=== PATIENT | female | born 1940 | race Caucasian/White ===

== ENCOUNTER 2022-04-11 18:03 | Outpatient (CLI) | payer MEDICARE, BC, SELFPAY | END 2022-04-11 18:04 | disposition home or self-care (01) | LOC: AMB 04-30 15:38 | PROVIDERS: PCP Family Medicine; Visit Provider Emergency Medicine Emergency Medical Services | DX: S49.92XA Unspecified injury of left shoulder and upper arm, initial encounter (principal); W18.30XA Fall on same level, unspecified, initial encounter; Y92.000 Kitchen of unspecified non-institutional (private) residence as the place of occurrence of the external cause | CPT/HCPCS: A0425; A0427 ==

== ENCOUNTER 2022-04-11 18:46 | Emergency (ER) | payer MEDICARE, BC, SELFPAY ==
[2022-04-11] VITALS (29 sets, daily range): BP systolic 168–215; BP diastolic 78–126; PULSE 52–71; RESP 7–29; TEMP 35.9; O2SAT 90–100; BMI 31.5
--- NOTE | 2022-04-11 19:11 | CRLHL7_ITS ---
For Patients: As a result of the Century Cures Act, medical imaging exams and procedure reports are released immediately into your electronic medical record. You may view this report before your referring provider. If you have questions, please contact your health care provider. HISTORY: Fall. Pain. TECHNIQUE: Two views of the left shoulder. COMPARISON: No prior. FINDINGS: There is anterior dislocation of the left humeral head with respect to the glenoid. There is a Hill-Sachs fracture of the humeral head likely present. Mild left AC joint degenerative changes. Atelectasis versus fibrosis left lung base. IMPRESSION: 1. Left anterior shoulder dislocation. 2. Hill-Sachs fracture of the left humeral head. Dictated by Johann Moncada MD @ 04/11/2022 7:46:25 PM Dictated by: Johann Moncada MD @ 04/11/2022 19:46:27 (Electronically Signed)
[2022-04-11] MEDS: fentaNYL 100 MCG/2 ML inj 50 MCG IM (19:22)
[2022-04-11] MEDS: fentaNYL 100 MCG/2 ML inj 25 MCG IVP (19:55)
[2022-04-11] MEDS: BUPIVACAINE 0.25% 30 ML INJECTION (20:08)
[2022-04-11] MEDS: 0.9 % SODIUM CHLORIDE 1000 ml 1,000 ML IV (20:58)
--- NOTE | 2022-04-11 21:02 | CRLHL7_ITS ---
For Patients: As a result of the Century Cures Act, medical imaging exams and procedure reports are released immediately into your electronic medical record. You may view this report before your referring provider. If you have questions, please contact your health care provider. INDICATION: Postreduction. COMPARISON: April 11, 2022. TECHNIQUE: Two views of the left shoulder. FINDINGS: Anatomic alignment status post reduction. Re- demonstrated Hill-Sachs deformity of the humeral head. No definite glenoid deformity. Hemithorax unremarkable. IMPRESSION: Normal alignment status post reduction. Re- demonstration of a Hill-Sachs deformity. Dictated by Bruce Moseley MD @ 04/11/2022 9:38:19 PM (Electronically Signed)
--- NOTE | 2022-04-11 21:20 | W.ANESCHARGE ---
Anesthesia Charges Start Date/Time Anesthesia Start Date: 04/11/22 Anesthesia Start Time: 21:50 Stop Date/Time Anesthesia Stop Date: 04/11/22 Anesthesia Stop Time: 22:15 Summary Emergency: Yes Extremes of Age: Over 71-CPT [address]
--- NOTE | 2022-04-12 00:30 | ED_ITS ---
HPI - Fall General Chief Complaint: Fall/Minor Trauma Stated Complaint: Fall Time Seen by Provider: 04/11/22 19:00 History of Present Illness HPI Narrative: 81-year-old woman presenting to the emergency department assisted by EMS after a fall in kitchen while making dinner. She has had a couple glasses of wine, does not indicate a particularly large pour and this would not be atypical. She is having great deal pain in her left shoulder. She did not lose consciousness or hit her head. Sounds like more of a trip and fall event. She has no neck or back pain. Did receive morphine in the IV via EMS but this concern of infiltration. She is having a good deal of pain. Related Data Home Medications Medication Instructions Recorded Confirmed atorvastatin 20 mg tablet mg 04/11/22 citalopram 20 mg tablet mg 04/11/22 hydrochlorothiazide 25 mg tablet mg 04/11/22 latanoprost 0.005 % eye drops drp 04/11/22 levothyroxine 112 mcg tablet mcg 04/11/22 metoprolol tartrate 25 mg tablet mg 04/11/22 pramipexole 0.25 mg tablet mg 04/11/22 Allergies Allergy/AdvReac Type Severity Reaction Status Date / Time acetaminophen Allergy Mild Hives Verified 04/11/22 18:59 [From Panlor (hydrocodone-acetamin)] hydrocodone Allergy Mild Hives Verified 04/11/22 18:59 [From Panlor (hydrocodone-acetamin)] tramadol Allergy Mild Hives Verified 04/11/22 18:59 diltiazem [From Cardizem] AdvReac Mild Verified 04/11/22 18:59 lisinopril AdvReac Mild Cough Verified 04/11/22 18:59 Review of Systems Status of ROS: Reports: 6 or more systems reviewed and unremarkable except as noted in History and below PFSH PFS Social History Smoking Status: Unknown if ever smoked How often do you have a drink containing alcohol: 2-3 times a week AUDIT-C Alcohol total score: 3 Non-prescribed substance use: denies use Exam Narrative: Exam Narrative: Is very pleasant. Positive affect. Favoring her left arm holding it at her side with with her right arm/hand. Is breathing easily. Hunched forward a little bit in bed. Lungs are clear. Cardiovascular with regular rate and rhythm to little slow may be bradycardic. There is no pain to palpation clearly about the clavicles. Back is nontender no deformity appreciated. Neck is supple nontender. Head atraumatic. Cranial nerves 2-12 to be intact. Abdomen is soft nontender. Lower extremities. The without injury. Returning exam to the left shoulder an arm, there is remarkable tenderness and some swelling around upper humerus. More prominent what might be humeral head. Soft swelling. Does not appear to be an AC joint area injury. She is well-perfused peripherally with intact sensation. Oropharynx is unremarkable Const: Vital Signs, click to edit/add: Vital Signs - 24 hr 04/11/22 18:49 04/11/22 18:48 04/11/22 18:49 Temperature 96.7 F L Pulse Rate 58 L 56 L Pulse Rate [Right Pulse Oximeter] 62 Respiratory Rate 20 Blood Pressure 215/90 H Blood Pressure [Ri ght Upper Arm] 215/90 H Pulse Oximetry 99 99 99 Oxygen Delivery Me thod Room Air Oxygen Flow Rate 04/11/22 19:00 04/11/22 19:02 04/11/22 19:15 Temperature Pulse Rate 57 L 62 56 L Pulse Rate [Right Pulse Oximeter] Respiratory Rate Blood Pressure 180/126 H Blood Pressure [Ri ght Upper Arm] Pulse Oximetry 94 92 97 Oxygen Delivery Me thod Oxygen Flow Rate 04/11/22 19:30 04/11/22 19:35 04/11/22 19:59 Temperature Pulse Rate 52 L 53 L 59 L Pulse Rate [Right Pulse Oximeter] Respiratory Rate Blood Pressure 206/88 H Blood Pressure [Ri ght Upper Arm] Pulse Oximetry 97 98 95 Oxygen Delivery Me thod Oxygen Flow Rate 04/11/22 20:00 04/11/22 20:01 04/11/22 20:15 Temperature Pulse Rate 66 60 56 L Pulse Rate [Right Pulse Oximeter] Respiratory Rate Blood Pressure 197/87 H Blood Pressure [Ri ght Upper Arm] Pulse Oximetry 93 96 95 Oxygen Delivery Me thod Oxygen Flow Rate 04/11/22 20:30 04/11/22 20:32 04/11/22 20:45 Temperature Pulse Rate 60 60 59 L Pulse Rate [Right Pulse Oximeter] Respiratory Rate Blood Pressure 188/83 H Blood Pressure [Ri ght Upper Arm] Pulse Oximetry 96 97 96 Oxygen Delivery Me thod Oxygen Flow Rate 04/11/22 19:50 04/11/22 20:50 04/11/22 20:52 Temperature Pulse Rate 59 L 60 Pulse Rate [Right Pulse Oximeter] Respiratory Rate Blood Pressure 203/90 H 201/99 H Blood Pressure [Ri ght Upper Arm] Pulse Oximetry 92 94 97 Oxygen Delivery Me thod Oxygen Flow Rate 04/11/22 20:57 04/11/22 21:00 04/11/22 21:02 Temperature Pulse Rate 62 58 L 69 Pulse Rate [Right Pulse Oximeter] Respiratory Rate 29 H 8 L Blood Pressure 198/91 H 197/105 H Blood Pressure [Ri ght Upper Arm] Pulse Oximetry 100 92 90 Oxygen Delivery Me thod Oxygen Flow Rate 04/11/22 21:14 04/11/22 21:03 04/11/22 21:07 Temperature Pulse Rate 64 71 Pulse Rate [Right Pulse Oximeter] Respiratory Rate 7 L Blood Pressure 169/79 H Blood Pressure [Ri ght Upper Arm] Pulse Oximetry 95 92 96 Oxygen Delivery Me thod Nasal Cannula Oxygen Flow Rate 2 04/11/22 21:15 04/11/22 21:17 04/11/22 21:30 Temperature Pulse Rate 63 62 65 Pulse Rate [Right Pulse Oximeter] Respiratory Rate Blood Pressure 169/78 H Blood Pressure [Ri ght Upper Arm] Pulse Oximetry 99 99 94 Oxygen Delivery Me thod Oxygen Flow Rate 04/11/22 21:32 04/11/22 21:45 04/11/22 21:47 Temperature Pulse Rate 68 60 63 Pulse Rate [Right Pulse Oximeter] Respiratory Rate Blood Pressure 168/78 H 170/79 H Blood Pressure [Ri ght Upper Arm] Pulse Oximetry 96 96 100 Oxygen Delivery Me thod Oxygen Flow Rate Documenting provider has reviewed patient's vital signs: yes Course Vital Signs Vital signs: Initial Vital Signs Pulse Rate 58 L 04/11/22 18:48 Blood Pressure 215/90 H 04/11/22 18:48 Blood Pressure Mean 131 04/11/22 18:48 Pulse Oximetry 99 04/11/22 18:48 Vital Signs Pulse Rate 58 L 04/11/22 18:48 Blood Pressure 215/90 H 04/11/22 18:48 Pulse Oximetry 99 04/11/22 18:48 Temperature 96.7 F L 11/19/22 18:49 Pulse Rate 63 04/11/22 21:47 Respiratory Rate 7 L 04/11/22 21:03 Blood Pressure 170/79 H 04/11/22 21:47 Pulse Oximetry 100 04/11/22 21:47 Oxygen Delivery Method 04/11/22 21:14 Oxygen Flow Rate 2 04/11/22 21:14 MDM - Fall MDM Narrative Medical decision making narrative: With her degree of pain we do reassess IV. I have ordered for fentanyl. This did help somewhat. Going to imaging revealed an anterior dislocation of the left humeral head. I did review these images myself. Over-read by Radiology also suspected a Hill-Sachs lesion. After discussion of risks benefits and then swabbing with Betadine I injected shoulder with bupivacaine into joint space. This did allow some traction and mild attempt at reduction but still not able to relocate and was causing too much pain. Aborted this effort. Busy emergency department so requested anesthesia consult. Thankfully Talya is clear for timing of food and drink at this point to receive moderate sedation. Anesthesia arrives and we prepare for sedation assisted reduction See procedure record. Propofol use by Anesthesia. Traction/counter traction probably most effective in finally helping humeral head to settle. Sling placed. Confirming reduction in my review of post reduction films with no further fracture identified beyond the Hill-Sachs lesion, I can also confirm that Talya was markedly more comfortable and pleasantly chatty. Orthopedics was contacted for follow-up Medical Records Attestation: I reviewed the patient's medical records. Discharge Plan Discharge Clinical Impression: Anterior shoulder dislocation, Hill Sachs deformity, left Patient Disposition: Home w/ Parent or Adult Condition: Improved Additional Instructions: I would consider icing your shoulder yet tonight. Wear the arm sling over the next week. Anticipate a call from Orthopedics for follow-up. If you do not hear from them by noon on Wednesday, feel free to call [phone] to inquire. Can take ibuprofen or acetaminophen. Let me know if you need more for pain. Discuss on follow-up this concern of Hill-Sachs lesion of the humeral head. This is essentially a sort of fracture and can make you more prone to dislocating in the future or developing arthritis. See handout regarding dislocated shoulder. Prescriptions: No Action latanoprost 0.005 % drops Label Comments: PLACE 1 DROP INTO THE RIGHT EYE ONCE DAILY AT BEDTIME atorvastatin 20 mg tablet Label Comments: TAKE ONE TABLET BY MOUTH ONE TIME DAILY citalopram 20 mg tablet Label Comments: TAKE ONE TABLET BY MOUTH EVERY DAY IN THE MORNING. pramipexole 0.25 mg tablet Label Comments: TAKE 0.5 TABLETS BY MOUTH ONCE DAILY AT BEDTIME. hydrochlorothiazide 25 mg tablet Label Comments: TAKE ONE TABLET BY MOUTH ONE TIME DAILY levothyroxine 112 mcg tablet metoprolol tartrate 25 mg tablet Label Comments: TAKE 0.5 TABLETS BY MOUTH TWICE DAILY Follow Up/Referrals: Angel Luis Khan MD [Primary Care Provider] - Stand Alone Forms: [facility] Info Instructions Procedures Orthopedic Joint Reduction Joint #1: Written consent by: patient Time Out Performed: Yes Side: left Joint Reduction Location: shoulder Manipulation used?: Yes Analgesia: procedural sedation (Propofol) Local Anesthesia: bupivacaine 0.25% (Intra-articular ) Shoulder Technique Used (if applicable): traction/counter-traction (Ultimately this technique was probably most helpful. Attempted a couple of times nearly placed and then would dislocate. Finally convinced had settled in the joint.), scapula manipulation and other (Modified [place]) Post-reduction neuro vascular exam: intact Post Reduction X-Ray Results: reduced (I did review these images.) Splint Applied: No (Did place a sling.) Patient Tolerated Procedure: well and no complications Procedural Sedation Pre procedure diagnosis: Dislocated shoulder with a Hill-Sachs lesion Post procedure diagnosis: Same Written consent by: patient Verification/time out: correct patient and correct procedure Name of person perfmorming the procedure: Grey Pereira Sedation provider same as procedural provider: No Assistants, if any: Jean Marie in anesthesia Assistants, if any: Nurse Sona and danilo Renteria Indication: fracture/dislocation reduction (Anterior shoulder dislocation with Hill-Sachs lesion) ASA Class: I Mallampati classification: I. soft palate, fauces, uvula, pillars visible Preparation: manager monitoring applied, pulse oximeter, capnometry used, suction/airway equipment at bedside and IV secured Fentanyl: IV IV Propofol dose (mg): 0 (See anesthesia record) Patient Tolerated Procedure: well and no complications Interventions: airway repositioned
== END 2022-04-11 22:05 | disposition home or self-care (01) ==
PROVIDERS: Emergency Provider Family Medicine; PCP Family Medicine
DX: S43.005A Unspecified dislocation of left shoulder joint, initial encounter (principal); W19.XXXA Unspecified fall, initial encounter
CPT/HCPCS: 01620; 23655; 73030; 94761; 99100; 99140; 99284; J2704; J3010; J3490; J7030

== ENCOUNTER 2022-04-30 13:57 | Outpatient (CLI) | payer MEDICARE, BC, SELFPAY ==
--- NOTE | 2022-04-30 14:30 | MR_ITS ---
[address] [address] Phone:?[phone] Fax:?[phone] Referring Physician Information: Haim Thibodeaux [address] [facility] [address] Phone:?[phone] Fax:?[phone] Patient:?Talya Coon D.O.B:?1940 Sex:?Female Phone:?[phone] [facility] MRN:?[id number] Exam Date:?04/30/2022 ? EXAM: MRI of the LEFT SHOULDER, without contrast CLINICAL HISTORY: Left shoulder pain/injury. Bank[place] deformity. Hill-Sachs lesion. COMPARISONS: None available. TECHNICAL: MRI sequences of the left shoulder: Axials: PD, T2 Coronals: PD, STIR, T2 Sagittals: PD, T2 SEDATION: None CONTRAST: None FINDINGS: Bones: There is a 2.1 cm craniocaudad dimension by 1.7 cm in transverse dimension Hill- Sachs impaction deformity measuring 0.7 cm in depth. Coracoacromial arch: Acromion: No os acromiale. Type I-II acromion. Acromiohumeral space: The bony distance measures 5 mm. Coracohumeral space: The bony distance is unremarkable. Acromioclavicular joint: Mild degenerative changes. Coracoclavicular ligament: The coracoclavicular ligament is intact. Rotator cuff muscles/tendons: Supraspinatus: 1.7 cm in AP dimension high-grade partial-thickness articular sided tear of the supraspinatus tendon insertion with retraction of torn undersurface fibers to the level of the glenoid best seen on sagittal series 8 image 11 and coronal series 4 images 10 through 13. Mild atrophy of the supraspinatus muscle. Infraspinatus: 1.0 cm in AP dimension full-thickness tear of the infraspinatus tendon insertion with 1.8 cm of tendon retraction. Mild to moderate atrophy of the infraspinatus muscle. Teres minor: The teres minor tendon and muscle are intact. Subscapularis: The subscapularis tendon and muscle are intact. Labrum: There is fraying and tearing of the entire labrum including Bankart labral tear. Proximal biceps tendon, long head and short heads: There is biceps tenosynovitis. Attenuation of the proximal long head of the biceps tendon may reflect chronic attritional partial tearing. The short head is intact. Glenohumeral joint: Small glenohumeral joint effusion with substantial synovitis. No full-thickness chondral defect or subchondral bone marrow edema/cystic change is seen. There is extensive ill-defined partial tearing of the inferior glenohumeral ligament including the humeral attachment. Bursae: Subacromial/subdeltoid: The presence of fluid is not unexpected given full- thickness rotator cuff tendon tear. Subcoracoid: No convincing subcoracoid bursal thickening/bursitis. IMPRESSION: 1. 2.1 x 1.7 cm Hill-Sachs impaction deformity measuring 0.7 cm in depth. 2. Bankart labral tear in the setting of more diffuse fraying/degenerative tearing of the entire labrum. 3. 1.0 cm in AP dimension full-thickness tear of the infraspinatus tendon insertion with 1.8 cm of tendon retraction. Mild to moderate atrophy of the infraspinatus muscle. 4. 1.7 cm in AP dimension high-grade partial-thickness articular sided tear of the supraspinatus tendon insertion with retraction of torn undersurface tendon fibers to the level of the glenoid. Mild atrophy of the supraspinatus muscle. 5. Extensive ill-defined partial tearing of the inferior glenohumeral ligament including the humeral attachment. 6. Biceps tenosynovitis. Attenuation of the proximal long head of the biceps tendon may reflect chronic attritional partial tearing. 7. Small glenohumeral joint effusion with substantial synovitis. RCB Electronically signed on 05/01/2022 8:43:00 AM by Vahe Mandel M.D.
== END 2022-04-30 13:58 | disposition home or self-care (01) ==
LOC: MRI 13:58
PROVIDERS: PCP Family Medicine; Visit Provider Physician Assistant Surgical
DX: M25.512 Pain in left shoulder (principal); M21.822 Other specified acquired deformities of left upper arm; S43.402A Unspecified sprain of left shoulder joint, initial encounter; S46.812A Strain of other muscles, fascia and tendons at shoulder and upper arm level, left arm, initial encounter; S43.432A Superior glenoid labrum lesion of left shoulder, initial encounter; M25.412 Effusion, left shoulder
CPT/HCPCS: 73221

== ENCOUNTER 2023-03-26 17:54 | Outpatient (CLI) | payer MEDICARE, BC, SELFPAY | END 2023-03-26 17:55 | disposition home or self-care (01) | LOC: AMB 03-27 16:20 | PROVIDERS: PCP Family Medicine; Visit Provider Family Medicine | DX: S59.912A Unspecified injury of left forearm, initial encounter (principal); W18.30XA Fall on same level, unspecified, initial encounter; Y92.009 Unspecified place in unspecified non-institutional (private) residence as the place of occurrence of the external cause | CPT/HCPCS: A0425; A0427 ==

== ENCOUNTER 2023-03-26 18:22 | Emergency (ER) | payer MEDICARE, BC, SELFPAY ==
[2023-03-26] VITALS (13 sets, daily range): BP systolic 141–170; BP diastolic 72–83; PULSE 56–80; RESP 18; TEMP 36.2; O2SAT 95–100; BMI 29.8
--- NOTE | 2023-03-26 18:37 | CRLHL7_ITS ---
For Patients: As a result of the Century Cures Act, medical imaging exams and procedure reports are released immediately into your electronic medical record. You may view this report before your referring provider. If you have questions, please contact your health care provider. Indication: Trauma. Technique: Left wrist, 3 views. Comparison: None. Findings/impression: Bones: Diffuse demineralization of the visualized bones. Comminuted impacted fracture of the distal radius. Associated ulnar styloid process fracture is noted. There is dorsal dislocation of the distal fracture fragment.. Joint spaces: Moderate degenerative changes noted throughout the visualized joints.. Soft tissues: Soft tissue swelling surrounding the fracture sites.. Dictated by Tino Beckett MD @ 03/26/2023 7:50:05 PM (Electronically Signed)
--- NOTE | 2023-03-26 18:37 | CRLHL7_ITS ---
For Patients: As a result of the Century Cures Act, medical imaging exams and procedure reports are released immediately into your electronic medical record. You may view this report before your referring provider. If you have questions, please contact your health care provider. Indication: Trauma. Technique: Left elbow, 2 views. Comparison: None. Findings: True lateral is not included, mildly limiting evaluation. Bones: Alignment is normal. No fractures or bone lesions. Joint spaces: Moderate degenerative changes noted throughout the elbow.. Soft tissues: Soft tissue swelling surrounding the elbow.. Impression: No definite acute fractures or dislocations identified. Dictated by Tino Beckett MD @ 03/26/2023 7:48:18 PM (Electronically Signed)
--- NOTE | 2023-03-26 18:37 | CRLHL7_ITS ---
For Patients: As a result of the Cures Act, medical imaging exams and procedure reports are released immediately into your electronic medical record. You may view this report before your referring provider. If you have questions, please contact your health care provider. Indication: Trauma. Technique: Left shoulder, 3 views. Comparison: None. Findings/Impression: Bones/joint spaces: Superior elevation of the humerus in relation to the glenoid, possibly related to chronic rotator cuff insufficiency. Recommend correlation for acute subluxation. No displaced fractures or bone lesions. Mild acromioclavicular joint osteoarthritis. Soft tissues: Unremarkable. Dictated by Lewis Ramos MD @ 03/26/2023 7:32:33 PM (Electronically Signed)
[2023-03-26] MEDS: MORPHINE 4 MG/ML INJ IVP (18:53)
--- NOTE | 2023-03-26 20:15 | ED_ITS ---
HPI - Extremity Injury (Upper) General Date Seen: 03/26/23 Chief Complaint: Extremity Pain/Injury, Upper Stated Complaint: Fall Time Seen by Provider: 03/26/23 18:29 Source: patient Mode of arrival: EMS Limitations: no limitations History of Present Illness HPI narrative: Patient is an 82-year-old female presenting to the emergency department after a fall. She says she was in her hallway when she fell landing on her left arm. She states she did not hit her head she knows that for a fact. She denies any lightheadedness or dizziness before or after the fall. She is not sure exactly how she fell but she does think she tripped. She is having pain to her left elbow, shoulder, rest. Denies any other injuries. Is able to move her shoulder and elbow slightly but with pain. Limited range of motion at the wrist. Is able to move her fingers. Denies numbness Related Data Home Medications Medication Instructions Recorded Confirmed atorvastatin 20 mg tablet mg 04/11/22 06/23/22 citalopram 20 mg tablet mg 04/11/22 06/23/22 hydrochlorothiazide 25 mg tablet mg 04/11/22 06/23/22 latanoprost 0.005 % eye drops drp 04/11/22 06/23/22 levothyroxine 112 mcg tablet mcg 04/11/22 06/23/22 metoprolol tartrate 25 mg tablet mg 04/11/22 06/23/22 pramipexole 0.25 mg tablet mg 04/11/22 06/23/22 Allergies Allergy/AdvReac Type Severity Reaction Status Date / Time acetaminophen Allergy Mild Hives Verified 06/23/22 10:41 [From Panlor (hydrocodone-acetamin)] hydrocodone Allergy Mild Hives Verified 06/23/22 10:41 [From Panlor (hydrocodone-acetamin)] tramadol Allergy Mild Hives Verified 06/23/22 10:41 diltiazem [From Cardizem] AdvReac Mild Verified 06/23/22 10:41 lisinopril AdvReac Mild Cough Verified 06/23/22 10:41 Review of Systems Narrative: Negative unless stated in HPI PFSH PFSH Surgical History (Updated 05/08/22 @ 09:43 by Valery Dacosta) H/O repair of right rotator cuff (~2013) ?Z98.890 - Other specified postprocedural states (ICD-10) Status post total right knee replacement ?Z96.651 - Presence of right artificial knee joint (ICD-10) Social History (Reviewed 06/23/22 @ 10:42 by Joanna Kumar ~ [facility], 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) Smoking Status: Never smoker Do you use any of these nicotine containing products: None Second hand tobacco smoke exposure: No How often do you have a drink containing alcohol: 4 or more times a week How many standard drinks containing alcohol do you have on a typical day: 5 or 6 How often do you have six or more drinks on one occasion: Daily or almost daily AUDIT-C Alcohol total score: 10 Non-prescribed substance use: denies use Exam Narrative: Exam Narrative: Const: Well-nourished, Well-developed, in mild distress Eyes: PERRL, no conjunctival injection, and symmetrical lids HENT: Atraumatic external nose and ears. Moist mucous membranes. Neck: Symmetric, trachea midline, No thyromegaly. CVS: RRR, No murmurs or gallops. Peripheral pulses 2+ and equal in all extremities RESP: Unlabored respiratory effort. Clear to auscultation bilaterally. GI: Nontender/Nondistended, No rebound or guarding. MSK: Obvious deformity to left wrist. Limited range of motion to left shoulder and elbow secondary to pain. Unable to move left wrist. Has full range of motion of left hand Skin: Warm, Dry. No rashes or lesions. Neuro: Normal Muscle tone, No focal neurological deficits. Psych: Awake, Alert, & Oriented x3. Appropriate mood and affect. Const: Vital Signs, click to edit/add: Vital Signs - 24 hr 03/26/23 18:27 Temperature 97.2 F L Pulse Rate [Pulse Oximeter] 57 L Respiratory Rate 18 Blood Pressure [Ri ght Upper Arm] 170/72 H Pulse Oximetry 99 Oxygen Delivery Me thod Room Air Course Vital Signs Vital signs: Initial Vital Signs Temperature 97.2 F L 03/26/23 18:27 Temperature Source Temporal Artery Scan 03/26/23 18:27 Pulse Rate 57 L 03/26/23 18:27 Respiratory Rate 18 03/26/23 18:27 Blood Pressure 170/72 H 03/26/23 18:27 Blood Pressure Mean 104 03/26/23 18:27 Blood Pressure Position Supine 03/26/23 18:27 Pulse Oximetry 99 03/26/23 18:27 Oxygen Delivery Method Room Air 03/26/23 18:27 Vital Signs Temperature 97.2 F L 03/26/23 18:27 Pulse Rate 57 L 03/26/23 18:27 Respiratory Rate 18 03/26/23 18:27 Blood Pressure 170/72 H 03/26/23 18:27 Pulse Oximetry 99 03/26/23 18:27 Oxygen Delivery Method Room Air 03/26/23 18:27 Temperature 97.2 F L 03/26/23 18:27 Pulse Rate 57 L 03/26/23 18:27 Respiratory Rate 18 03/26/23 18:27 Blood Pressure 170/72 H 03/26/23 18:27 Pulse Oximetry 99 03/26/23 18:27 Oxygen Delivery Method Room Air 03/26/23 18:27 MDM - Extremity Injury (Upper) MDM Narrative Medical decision making narrative: Patient is an 82-year-old female who comes in after mechanical fall. No associated lightheadedness or dizziness. Did not hit her head. Is not on blood thinners. It is not necessary to do a head CT at this time. She is only complaining about pain to left arm. She was tender to the left shoulder elbow and wrist. X-rays were ordered. Morphine given for pain X-rays returned showing a fractured with compaction angulation of the left wrist. We will reduce this. I did a hematoma block and we will place in traction splint. Post reduction imaging was reviewed by myself and shows improved alignment. She was placed in a volar splint and was discharged home. Patient is agreeable to this plan appears to be discharged home with oxycodone sent [facility]. She is neurovascular intact post reduction Imaging Data X-ray left wrist: Radiologist's impression: Bones: Diffuse demineralization of the visualized bones. Comminuted impacted fracture of the distal radius. Associated ulnar styloid process fracture is noted. There is dorsal dislocation of the distal fracture fragment.. Joint spaces: Moderate degenerative changes noted throughout the visualized joints.. Soft tissues: Soft tissue swelling surrounding the fracture sites.. Dictated by Tino Beckett MD @ 03/26/2023 7:50:05 PM X-ray left elbow: Radiologist's impression: No definite acute fractures or dislocations identified. Dictated by Tino Beckett MD @ 03/26/2023 7:48:18 PM X-ray left shoulder: Radiologist's impression: Bones/joint spaces: Superior elevation of the humerus in relation to the glenoid, possibly related to chronic rotator cuff insufficiency. Recommend correlation for acute subluxation. No displaced fractures or bone lesions. Mild acromioclavicular joint osteoarthritis. Soft tissues: Unremarkable. Dictated by Lewis Ramos MD @ 03/26/2023 7:32:33 PM Discharge Plan Discharge Clinical Impression: Fracture of wrist Qualifiers: Encounter type: initial encounter Fracture type: closed Laterality: left Qualified Code(s): S62.102A - Fracture of unspecified carpal bone, left wrist, initial encounter for closed fracture Condition: Stable Instructions: Wrist Fracture in Adults (ED) Additional Instructions: Follow-up with orthopedics. Will help schedule an appointment. Take ibuprofen and Tylenol for pain. Side helping he can use oxycodone. Make sure that your careful any take the oxycodone as sick increased fall risk. If you lose feeling in the fingers or the become notably discolored return to emergency department for re-evaluation. Prescriptions: No Action latanoprost 0.005 % drops Patient Comments: PLACE 1 DROP INTO THE RIGHT EYE ONCE DAILY AT BEDTIME atorvastatin 20 mg tablet Patient Comments: TAKE ONE TABLET BY MOUTH ONE TIME DAILY citalopram 20 mg tablet Patient Comments: TAKE ONE TABLET BY MOUTH EVERY DAY IN THE MORNING. pramipexole 0.25 mg tablet Patient Comments: TAKE 0.5 TABLETS BY MOUTH ONCE DAILY AT BEDTIME. hydrochlorothiazide 25 mg tablet Patient Comments: TAKE ONE TABLET BY MOUTH ONE TIME DAILY levothyroxine 112 mcg tablet metoprolol tartrate 25 mg tablet Patient Comments: TAKE 0.5 TABLETS BY MOUTH TWICE DAILY Follow Up/Referrals: Angel Luis Khan MD [Primary Care Provider] -
--- NOTE | 2023-03-26 20:38 | CRLHL7_ITS ---
For Patients: As a result of the Century Cures Act, medical imaging exams and procedure reports are released immediately into your electronic medical record. You may view this report before your referring provider. If you have questions, please contact your health care provider. Indication: Reduction. Technique: Left wrist, 2 views. Comparison: None. Findings: Bones: Redemonstrated comminuted impacted fracture of the distal radius with better anatomic alignment.. Questionable fracture of the triquetrum. Redemonstrated associated ulnar styloid process fracture. Joint spaces: Moderate degenerative changes.. Soft tissues: Unremarkable. Impression: Better anatomic alignment of the distal radial fracture fragments. Stable appearance of the ulnar styloid process fracture. Questionable fracture of the triquetrum. Dictated by Tino Beckett MD @ 03/26/2023 8:55:10 PM (Electronically Signed)
--- NOTE | 2023-03-26 20:47 | ED.NURSE ---
Finger traps applied without improvement. Wrist manually reduced by MD and orthoglass placed.
== END 2023-03-26 21:22 | disposition home or self-care (01) ==
PROVIDERS: Emergency Provider Student in an Organized Health Care Education/Training Program; PCP Family Medicine
DX: S52.352A Displaced comminuted fracture of shaft of radius, left arm, initial encounter for closed fracture (principal); S52.615A Nondisplaced fracture of left ulna styloid process, initial encounter for closed fracture; W18.30XA Fall on same level, unspecified, initial encounter
CPT/HCPCS: 25605; 73030; 73070; 73110; 96374; 99283; 99284; J2270

== ENCOUNTER 2023-03-30 14:23 | Outpatient (CLI) | payer MEDICARE, BC, SELFPAY | END 2023-03-30 14:24 | disposition home or self-care (01) | LOC: NFLDREF 14:24 | PROVIDERS: PCP Family Medicine; Visit Provider Family Medicine | DX: Z01.818 Encounter for other preprocedural examination (principal); I10 Essential (primary) hypertension | CPT/HCPCS: 80048 ==

== ENCOUNTER 2023-03-31 11:30 | Day surgery (SDC) | payer MEDICARE, BC, SELFPAY ==
[2023-03-31] VITALS (11 sets, daily range): BP systolic 143–170; BP diastolic 67–85; PULSE 46–67; RESP 16; TEMP 36.1–36.6; O2SAT 94–100; BMI 31.1
[2023-03-31] MEDS: LACTATED RINGERS 1000 ML 1,000 ML 100 ML IV ×2 (12:30→13:55)
--- NOTE | 2023-03-31 12:52 | SUR.PREOP ---
TIME?OUT:?1238 PT/RN/MDA?VERIFICATION?OF?SURGICAL?SITE,?PROCEDURE,?AND?CONSENT OBTAINED?PRIOR?TO?INVASIVE?PROCEDURE.
--- NOTE | 2023-03-31 13:00 | CRLHL7_ITS ---
For Patients: As a result of the Cures Act, medical imaging exams and procedure reports are released immediately into your electronic medical record. You may view this report before your referring provider. If you have questions, please contact your health care provider. Indication: ORIF Left Distal Radius Technique: Two fluoroscopic images of the left wrist. Fluoroscopic time 16.0 seconds. IMPRESSION: Fluoroscopic guidance for open reduction internal fixation distal radial fracture. Dictated by Grey Sales MD @ 04/01/2023 5:44:33 AM (Electronically Signed)
--- NOTE | 2023-03-31 13:02 | W.ANESCHARGE ---
Anesthesia Charges Start Date/Time Anesthesia Start Date: 03/31/23 Anesthesia Start Time: 13:16 Stop Date/Time Anesthesia Stop Date: 03/31/23 Anesthesia Stop Time: 14:33 Summary Extremes of Age - Over 70 or under 1: MDA
--- NOTE | 2023-03-31 13:02 | W.PM.NB ---
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 Images saved: Yes Medications given in 5ml increments after negative aspiration: Ropivicaine %: 0.5 mL: 30 Needle gauge: 22 Patient tolerated procedure well: Yes Additional comments: Needle noted adjacent to nerve Block Charges Block Charge (with Pro Fee): Brachial Plexus Use of Ultrasound Machine for Block: Yes- US Guidance/pain block
--- NOTE | 2023-03-31 13:28 | W.PM.H&PU ---
History & Physical Update History & Physical Update H&P Reviewed and patient assessed: No changes noted
[2023-03-31] MEDS: CEFAZOLIN 1 GM inj IVP (13:30)
[2023-03-31] MEDS: LIDOCAINE 2%-EPI 1:200,000 20 ML TOPICAL (14:09)
[2023-03-31] MEDS: BUPIVACAINE 0.5% 30 ML INJECTION (14:09)
[2023-03-31] MEDS: NEOMYCIN/BACITRACIN/POLYMYXIN B 1 APPLIC TOPICAL (14:19)
--- NOTE | 2023-03-31 14:25 | PM.ORPRC ---
Procedure Note Date of procedure: 03/31/23 Procedure: PREOPERATIVE DIAGNOSES: 1. Left distal radius fracture extra-articular, metaphyseal, comminuted, radially/dorsally angulated and displaced - unstable 2. Right ring finger flexor tenosynovitis POSTOPERATIVE DIAGNOSES: 1. Left distal radius fracture extra-articular, metaphyseal, comminuted, radially/dorsally angulated and displaced - unstable 2. Right ring finger flexor tenosynovitis NAME OF OPERATION: 1. Left distal radius open reduction with internal fixation of extra-articular fracture (2 parts) 2. Right ring finger A1 bushra release/trigger finger release SURGEON: Elan Reaves MD [employer] ATTENDANT: Troy Ponce - Of note, an visitor services information assistant was critical for this case to aide in patient positioning, limb manipulation, tissue retraction, closure, and splinting. ANESTHESIA: Axillary block plus MAC EBL: 25 mL IMPLANTS: Synthes dual column volar locking plate for the left distal radius fracture fixation with 2.4 mm locking screws on the shaft and 1.8 mm locking pegs distally.. TOURNIQUET: 30 minutes at 250 torr. INDICATIONS: The patient is a pleasant, 82-year-old female who sustained a left wrist injury after a fall. They had difficulty with use of the extremity and deformity. Workup included xrays which revealed an unstable fracture. Given these findings, surgery was recommended to stablize the fracture. In addition, the contralateral right ring finger has been stuck in a flexed posture like a trigger finger for the last 2 weeks. Upon seeing her, I was unable to passively extend the digit. Given the length of time, this was an urgent trigger finger release as her IP joints are going to be contracted. FINDINGS: Closed, comminuted displaced left distal radius fracture, extra-articular metaphyseal location. Regarding the right hand, the ring finger indeed was stuck in a flexed posture. Even after lidocaine injection, we were unable to extend the digit. It was not until we released the A1 bushra that 1 could extend the MCP joint fully. In addition, the PIP joint showed a 45 degree flexion contracture as it has been stuck for 2+ weeks. PROCEDURE: Following a thorough discussion of risks, benefits, and alternatives, consent was obtained and the operative extremity was marked. The patient was brought to the operating room and placed supine on the operating table. Induction of anesthesia was achieved. Appropriate time out was performed identifying proper patient, site and procedure. 1 gram of iv Ancef was administered within 1 hour of incision preoperatively. The left upper extremity was prepped and draped in the appropriate sterile fashion using ChloraPrep prep. The limb was exsanguinated and the tourniquet inflated. A longitudinal incision was made overlying the FCR tendon. Sharp incision through skin and subcutaneous tissue allowed identification of the FCR tendon. The superficial sheath was sharply divided, the tendon retracted ulnarly, and the deep fascial sheath also released. The FPL was retracted ulnarly and the pronator quadratus was sharply released from the radial border of the radius and subperiosteally elevated. The fracture was encountered and cleared of interposed periosteum / fracture hematoma. A reduction was performed and the appropriate plate selected. Temporary stabilization allowed C-arm fluoroscopy to confirm proper fracture reduction and plate positioning. The oblong hole was filled with a nonlocking screw followed by multiple distal locking pegs being careful to keep these in subchondral bone and extraarticular. Finally, the remaining proximal shaft screws were drilled and placed. Fluoroscopic imaging confirmed the improved position and showed the fracture to be stable. At this stage, the wound was thoroughly irrigated with normal saline. Closure performed with 0 Vicryl for the pronator quadratus, followed by deflation of the tourniquet. All major bleeding points were cauterized. Closure was then completed with 3-0 Vicryl for the subcutaneous, and 4-0 statafix for subcuticular closure. After completion of left distal radius fracture, the right hand underwent a ring finger A1 bushra release. Sharp incision through skin after local anesthetic with 2% lidocaine with epinephrine and 0.5% Marcaine plain divided 50:50 (4 mL total). The subcutaneous tissue was bluntly divided with the tenotomy scissors. Retractors allowed us to identify the A1 bushra. We saw the tendon stuck in a flexed posture with significantly thickened portion just proximal to the A1 bushra. The A1 bushra was released completely and tendon was not able to be properly mobilized. Manipulation of the ring finger PIP joint showed that it remained at a 45 degree flexion contracture (although was stuck at 90? prior to the A1 bushra release). Again thorough irrigation normal saline was performed. Closure performed with 4-0 nylon for this finger. Both upper extremities underwent a proper dressing and the left wrist also had a short-arm volar splint applied. The patient was awoken from anesthesia and transferred to PACU in stable condition. PLAN: 1. Elevate operative extremity. 2. Ice, acetominphen or ibuprofen PRN. 3. Oxycodone for pain as needed. 4. Follow up with PA visit in 10-16 days for wound check, suture removal, and splint removal and transition to short-arm cast. Total immobilization time between splint and cast should equal 4 weeks. She can return at the 4 week smooth for cast removal and brace application.
--- NOTE | 2023-03-31 14:50 | SUR.OPER ---
PATIENT QUESTIONS ANSWERED SATISFACTORILY PREOPERATIVELY. PATIENT BROUGHT TO OR #2 PER CART FOLLOWING THE BLOCK. Patient positioned supine on OR 23 bed. Final approval of positioning by surgeon.
--- NOTE | 2023-03-31 14:52 | P.ANES_ITS ---
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
--- NOTE | 2023-03-31 14:56 | SUR.PHASEII ---
Upon arrival from OR, right hand all fingers dusky and blue in color. Pulse oximeter applied to fingers with oxygen sats 95-96% on RA. Dr. Vanessa updated on pt's condition, he is aware and will recheck.
--- NOTE | 2023-03-31 15:34 | SUR.PHASEII ---
1520 Dr Vanessa in room to check pt's right hand. Released the dressing, pink color returned to fingers. pt has feeling on right pointer, middle, thumb finger. numbness on ring finger and little finger. Good cap refill on all fingers. Pulse oximetry reading on all fingers with good capture and 95% oxygen reading.
--- NOTE | 2023-03-31 16:04 | SUR.PHASEII ---
ambulated to BR with SBA tolerated activity without difficulty. WHeelchair ride to car
== END 2023-03-31 16:04 | disposition home or self-care (01) ==
PROVIDERS: PCP Family Medicine; Visit Provider Orthopaedic Surgery Sports Medicine
PROC: (CPT 25575; principal; 2023-03-31 13:00)
PROC: (CPT 26055; 2023-03-31 13:00)
DX: S52.552A Other extraarticular fracture of lower end of left radius, initial encounter for closed fracture (principal); M65.841 Other synovitis and tenosynovitis, right hand; M65.341 Trigger finger, right ring finger
CPT/HCPCS: 25607; 26055; 01830; 64415; 73100; 76000; 76942; 99100; A4580; C1713; J0665; J0690; J1100; J2405; J2704; J2795; J3490; J7120

== ENCOUNTER 2023-07-01 13:30 | Outpatient (RCR) | payer MEDICARE, BC, SELFPAY ==
--- NOTE | 2023-04-30 12:12 | OT.OPOE ---
OT Outpatient Ortho Eval OT Outpatient Ortho Eval* Start: 04/29/23 17:32 Freq: Status: Active Protocol: Document 04/30/23 07:31 AMB (Rec: 04/30/23 12:09 AMB [id number]) E-signed By Sarah Cardenas, OTR/L, CLT, [employer] TECHNICIAN OT OP Ortho Eval Details Complexity Complexity Medium Insurance Information Insurance Information Medicare B Outpatient History/Precautions Current Condition/Medical Diagnosis Referring Provider Fam Ghosh-Rustam Treatment Diagnosis Stiffness/weakness RUE RF and LUE wrist/hand Date of Onset DOI:03/26/23, DOS: 03/31/23 Medical Conditions Depression,HTN,Metal Implants Other Conditions PMH (copied from ortho chart): PFSH Active Problems (Updated 04/10 @ 00:01 by Background Asher) History of open reduction and internal fixation (ORIF) procedure (Acute 03/31/23) 1 month postop left distal radius open reduction with internal fixation of extra- articular fracture (2 parts) - 03/31/2023 Dr. Reaves Z98.890 - Other specified postprocedural states (ICD-10) Status post trigger finger release (Acute 03/31/23) 1 month postop right ring finger A1 bushra release/ trigger finger release (2022 Dr. Reaves) Z98.890 - Other specified postprocedural states (ICD-10) Bowel obstruction (Acute) K56.609 - Unspecified intestinal obstruction, unspecified as to partial versus complete obstruction ( ICD-10) Hypothyroidism (Acute) E03.9 - Hypothyroidism, unspecified (ICD-10) Depression (Acute) F32.A - Depression, unspecified (ICD-10) Hyperlipidemia (Acute) E78.5 - Hyperlipidemia, unspecified (ICD-10) HTN (hypertension) (Acute) I10 - Essential (primary) hypertension (ICD-10) Trigger finger, right ring finger (Acute) M65.341 - Trigger finger, right ring finger (ICD-10) Left wrist fracture (Acute) Comminuted impacted fracture of the distal radius. Associated ulnar styloid process fracture. Questionable fracture of the triquetrum. S62.102A - Fracture of unspecified carpal bone, left wrist, initial encounter for closed fracture (ICD-10) Tendinopathy of left biceps ( Acute) Biceps tenosynovitis M67.922 - Unspecified disorder of synovium and tendon, left upper arm (ICD-10) Rotator cuff tear, left ( Chronic) full-thickness tear of the infraspinatus with mild- moderate atrophy high-grade partial-thickness supraspinatus tear with mild atrophy M75.102 - Unspecified rotator cuff tear or rupture of left shoulder, not specified as traumatic (ICD-10) Bankart lesion of left shoulder (Acute) Bankart labral tear S43.492A - Other sprain of left shoulder joint, initial encounter (ICD-10) Anterior shoulder dislocation (Acute 04/11/22) left shoulder dislocation/ reduction. 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 - Other specified acquired deformities of left upper arm (ICD-10) Surgical History (Updated 12/13 @ 09:50 by Ruperto Hanson PA-C) Status post trigger finger release (03/31/23) Z98.890 - Other specified postprocedural states (ICD-10) History of open reduction and internal fixation (ORIF) procedure (03/31/23) Z98.890 - Other specified postprocedural states (ICD-10) History of phacoemulsification of cataract of left eye with intraocular lens implantation (10/10/08) Z98.42 - Cataract extraction status, left eye (ICD-10) Z96.1 - Presence of intraocular lens (ICD-10) History of YAG laser capsulotomy of lens of right eye (11/21/08) Z98.41 - Cataract extraction status, right eye (ICD-10) History of bladder surgery Z98.890 - Other specified postprocedural states (ICD-10) History of bunionectomy of both great toes Z98.890 - Other specified postprocedural states (ICD-10) History of hysterectomy (1992) Z90.710 - Acquired absence of both cervix and uterus (ICD-10 ) History of colectomy (~2007) Z90.49 - Acquired absence of other specified parts of digestive tract (ICD-10) H/O repair of right rotator cuff (~2013) Z98.890 - Other specified postprocedural states (ICD-10) 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 Social History Employment Status Retired Hobbies Enjoys time with her grandchildren Fitness Stays active taking care of her home Ortho Subjective Subjective Subjective Pt states that on 03/26/23, she was walking [place] the [place] her [place] when she slipped on the tile and fell on her left hand breaking her wrist. Pt state she's had a trigger finger in her right hand for a very long time, states the doctor asked her if she wanted that fixed while he was repairing her wrist, she decided that would be a good idea as she states she really could not straighten that finger and hadn't been able to for a long time. Pt states she is feeling pretty good using Tylenol occasionally for pain. Pt states her pain is about a 3/10 in her wrist, less in her right hand. Pt states her wrist aches, finger is just sore, painful if she pushes it straight. Pt states she is really not able to do any cooking or cleaning, also needs occasional help getting dressed, especially with buttons, zippers, ties. Pt states her is very helpful and assists with whatever she needs help with. Goniometric Comments Goniometric Comments Goniometric Comments 04/30/23 AROM of the LUE wrist flexion is 45, ext is 10, UD is 15, RD is 15, composite fist is -1.5cm from tip of MF to DPC, opposition is to tip of 5th digit, pronation is 65, supination is 40. AROM of the RUE RF MP is 0-80, PIP is -25-95, DIP is 0-20. Too early for strength testing. OT Problems Problems Problems Decreased Strength,Decreased Range of Motion,Decreased Dexterity,Pain,Decreased Coordination,Lifting,Gripping, Pinching Other Problems Writing,Opening Containers Assessment Assessment Assessment Pt is a very pleasant 82yo female reporting to OT with pain, weakness and limited AROM in the RUE hand and the LUE hand, wrist and forearm following RUE RF TF release and LUE DR fx with ORIF. Pt is having difficulty with all ADLs and IADLs due to stated impairments. Pt will benefit from skilled OT intervention to address BUE AROM, strength, and pain in order to restore full, pain-free use of BUE and independence with all ADLs and IADLs. Occupational Therapy Treatment Plan - OP Potential Rehabilitation Potential Good Set Goals Goals Set with Patient Yes Goals Goals 1. Pt will be independent and compliant with HEP in order to resume full, pain-free use of BUE. 3 weeks 2. Pt will demonstrate full, pain-free AROM of the BUE in order to improve ability to grasp and hold. 6 weeks 3. Pt will demonstrate pain- free cleaner furniture and pinch strength comparable to age and gender in BUE in order to improve functional grasp, hold, reach, and lifting ability needed to complete self-care, leisure tasks, and work activities. 8 weeks. Treatment Plan Treatment Plan Evaluation,Edema Control,Joint Mobilization,Manual Therapy, Splinting,Ultrasound,Wound Care/Scar Management, Therapeutic Exercise, Therapeutic Activities,Self Care/Home Management,Education Expected Frequency 1-2x Week Expected Duration 8-10 Weeks Home Program Home Program Home Program Initiated Home Program Specifics 04/30/23 Provided training and practice in HEP for AROM of the LUE hand, wrist, and forearm and AROM, gentle AAROM of the RUE RF. Following demo, pt is able to complete exs with minimal cues. She was provided written instructions for use at home as well. She was also given a Oval 8 splint for static PIP extension of the RUE RF PIP, to be worn at night. Certification Certification I Certify That: Therapy Services Provided, Therapy Plan Established, Therapy Plan Reviewed Recertification Information Recertification Information Initial Certification Date 04/30/23 Recertification Due Date 07/29/23 Reasons to Continue Skilled Therapy Initiated OT today to address limited ROM and weakness in BUE secondary to RUE TF release of the RF and LUE ORIF secondary to DR calvert. Rehabilitation Potential Good Continued Plan of Care and Interventions Please see above POC Provider Signature Shows Agreement With POC & Medical Necessity Physician Comment/Change Comment or Changes Physician NPI Number #
== END 2023-07-01 15:21 | disposition home or self-care (01) ==
PROVIDERS: PCP Family Medicine; Visit Provider Physician Assistant Surgical
DX: Z98.890 Other specified postprocedural states (principal); Z51.89 Encounter for other specified aftercare
CPT/HCPCS: 97035; 97110; 97140; 97166; 97530; X5282

== ENCOUNTER 2023-07-22 09:15 | Outpatient (RCR) | payer MEDICARE, BC, SELFPAY | END 2023-11-19 23:59 | disposition home or self-care (01) | PROVIDERS: PCP Family Medicine; Visit Provider Family Medicine | DX: R26.81 Unsteadiness on feet (principal); Z51.89 Encounter for other specified aftercare | CPT/HCPCS: 97035; 97110; 97116; 97140; 97162; X5282 ==

== ENCOUNTER 2023-12-08 22:11 | Inpatient (IN) | payer MEDICARE, BC, SELFPAY ==
[2023-12-08 22:15] VITALS: BP 201/83; PULSE 62; RESP 20; TEMP 36.6; O2SAT 95; BMI 32.1
--- NOTE | 2023-12-08 22:24 | ED.GENADULT ---
HPI - General Adult General Chief complaint: Abdominal Pain Stated complaint: abdominal pain Time Seen by Provider: 12/08/23 22:24 History of Present Illness HPI narrative: Pain over the umbilicus starting a couple hours ago. Also very nauseated. She hasn't felt good today. History of hernia of stomach requiring surgery as well as a bowel obstruction 10 years ago treated medically, bladder mesh, and hysterectomy. 83-year-old woman presenting to the emergency department with cramping periumbilical pain beginning a few hours prior to presentation. Cramping. No diarrhea. Has passed some gas. Did have a bowel movement earlier today but had not yet had such discomfort at that point. Has been urping or dry heaving but not actually vomiting - sounds like does not vomit though since Sherrill. Just has not felt good today she says and then it escalated as noted above. Does have a history of number of abdominal surgeries and sounds like subsequent bowel obstruction treated medically. Has not had any fever. Not having any chest pain. Not noting shortness of breath. Hurts more to sit. Related Data Home Medications ?Medication ?Instructions ?Recorded ?Confirmed atorvastatin 20 mg tablet 20 mg PO QDAY 03/30/23 12/03/23 citalopram 20 mg tablet 20 mg PO QDAY 03/30/23 12/03/23 hydrochlorothiazide 25 mg tablet 25 mg PO QDAY 03/30/23 12/03/23 latanoprost 0.005 % eye drops 1 drp ophthalmic (eye) QDAY 03/30/23 12/03/23 levothyroxine 112 mcg tablet 112 mcg PO QDAY 03/30/23 12/03/23 metoprolol tartrate 25 mg tablet 12.5 mg PO BID 03/30/23 12/03/23 multivitamin (Multiple Vitamins 1 tab PO QDAY 03/30/23 12/03/23 tablet) pramipexole 0.25 mg tablet 0.125 mg PO QHS 03/30/23 12/03/23 Allergies Allergy/AdvReac Type Severity Reaction Status Date / Time acetaminophen Allergy Mild Hives Verified 12/03/23 09:50 [From Panlor (hydrocodone-acetamin)] hydrocodone Allergy Mild Hives Verified 12/03/23 09:50 [From Panlor (hydrocodone-acetamin)] tramadol Allergy Mild Hives Verified 12/03/23 08:40 diltiazem [From Cardizem] AdvReac Mild Verified 12/03/23 08:40 lisinopril AdvReac Mild Cough Verified 12/03/23 08:40 Review of Systems Status of ROS: Reports: 6 or more systems reviewed and unremarkable except as noted in History and below [facility] Medical History Irregular heart rhythm ?I49.9 - Cardiac arrhythmia, unspecified (ICD-10) Restless legs ?G25.81 - Restless legs syndrome (ICD-10) Urinary incontinence ?R32 - Unspecified urinary incontinence (ICD-10) Adjustment disorder with depressed mood ?F43.21 - Adjustment disorder with depressed mood (ICD-10) Acquired hypothyroidism ?E03.9 - Hypothyroidism, unspecified (ICD-10) Impaired fasting glucose ?R73.01 - Impaired fasting glucose (ICD-10) Mixed hyperlipidemia ?E78.2 - Mixed hyperlipidemia (ICD-10) Essential hypertension ?I10 - Essential (primary) hypertension (ICD-10) Coronary artery disease ?I25.10 - Atherosclerotic heart disease of [place] coronary artery without angina pectoris (ICD-10) Surgical History Status post Sherrill fundoplication (without gastrostomy tube) procedure ?Z98.890 - Other specified postprocedural states (ICD-10) Status post trigger finger release (03/31/23) ?Z98.890 - Other specified postprocedural states (ICD-10) History of open reduction and internal fixation (ORIF) procedure (03/31/23) ?Z98.890 - Other specified postprocedural states (ICD-10) History of phacoemulsification of cataract of left eye with intraocular lens implantation (10/10/08) ?Z98.42 - Cataract extraction status, left eye (ICD-10) ?Z96.1 - Presence of intraocular lens (ICD-10) History of YAG laser capsulotomy of lens of right eye (11/21/08) ?Z98.41 - Cataract extraction status, right eye (ICD-10) History of bladder surgery ?Z98.890 - Other specified postprocedural states (ICD-10) History of bunionectomy of both great toes ?Z98.890 - Other specified postprocedural states (ICD-10) History of hysterectomy (1993) ?Z90.710 - Acquired absence of both cervix and uterus (ICD-10) History of colectomy (~2007) ?Z90.49 - Acquired absence of other specified parts of digestive tract (ICD-10) H/O repair of right rotator cuff (~2013) ?Z98.890 - Other specified postprocedural states (ICD-10) 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 Calm but clearly uncomfortable. Speaks fluidly. She is standing at the side of the bed - as noted more uncomfortable to sit down. Breathing easily. Lungs appear to be clear. Heart is slower regular rate. Distant. No murmur rub or gallop though identified. Abdomen with present bowel sounds. Diffusely mildly tense and tender but she is not exactly guarding. Large well-healed midline abdominal scars. No peritoneal signs. Extremities are well perfused with moderate dependent. Const: Vital Signs, click to edit/add: Vital Signs - 24 hr 12/08/23 22:15 12/08/23 23:32 Temperature 97.9 F Pulse Rate [Pulse Oximeter] 62 58 L Respiratory Rate 20 18 Blood Pressure [Le ft Forearm] 201/83 H 174/70 H Pulse Oximetry 95 90 Oxygen Delivery Me thod Room Air Room Air Documenting provider has reviewed patient's vital signs: yes Course Vital Signs Vital signs: Initial Vital Signs Temperature 97.9 F 12/08/23 22:15 Temperature Source Temporal Artery Scan 12/08/23 22:15 Pulse Rate 62 12/08/23 22:15 Respiratory Rate 20 12/08/23 22:15 Blood Pressure 201/83 H 12/08/23 22:15 Blood Pressure Mean 122 H 12/08/23 22:15 Blood Pressure Position Sitting 12/08/23 22:15 Pulse Oximetry 95 12/08/23 22:15 Oxygen Delivery Method Room Air 12/08/23 22:15 Vital Signs Temperature 97.9 F 12/08/23 22:15 Pulse Rate 62 12/08/23 22:15 Respiratory Rate 20 12/08/23 22:15 Blood Pressure 201/83 H 12/08/23 22:15 Pulse Oximetry 95 12/08/23 22:15 Oxygen Delivery Method Room Air 12/08/23 22:15 Temperature 97.9 F 12/08/23 22:15 Pulse Rate 58 L 12/08/23 23:32 Respiratory Rate 18 12/08/23 23:32 Blood Pressure 174/70 H 12/08/23 23:32 Pulse Oximetry 90 12/08/23 23:32 Oxygen Delivery Method Room Air 12/08/23 23:32 Medications Administered Medications: Discontinued Medications Generic Name Dose Route Start Last Admin Trade Name Freq PRN Reason Stop Dose Admin Sodium Chloride 1,000 mls @ 1,000 mls/hr 12/08/23 22:28 12/08/23 23:45 0.9 % Sodium Chloride 1000 Ml IV 12/08/23 23:27 Infused .Q1H ONE Infusion Morphine Sulfate 4 mg 12/08/23 22:28 12/08/23 22:52 Morphine 4 Mg/Ml Inj IVP 12/08/23 22:29 4 mg ONCE ONE Administration Ondansetron HCl 4 mg 12/08/23 22:28 12/08/23 22:52 Ondansetron 2 Mg/Ml Inj IVP 12/08/23 22:29 4 mg ONCE ONE Administration Medical Decision Making MDM Narrative Medical decision making narrative: Given recurrent surgeries and history of bowel obstruction I would have concern of the same. She may have a volvulus. Does not sound to be constipated otherwise. No symptoms of colitis at this time. Will evaluate for concurrent urinary tract infection as well. Symptoms inconsistent I think with pancreatitis or cholecystitis or appendicitis or mesenteric adenitis. Given degree of discomfort, history, age, will need CT imaging. She would appreciate something for pain. Will place IV. Normal saline. Zofran. 4 mg of morphine initially. Initial systolic of 201 I would suspect is related to pain. Labs are overall reassuring. I have reviewed IV contrasted CT of abdomen pelvis and can appreciate some dilated fluid-filled loops of small bowel. Would have concern of obstruction however there does appear to be some gas in the lower pelvis. Pending Radiology over-read. Pain is returning. Ordered for another 2 mg of morphine. Continues to dry heave. Has also visited the bathroom. She denies passing any flatus at this point ?I think I have been turned off? Will be given promethazine and with escalation in pain, Dilaudid. Will need to be handed off at change of shift Medical Records Medical records reviewed: Yes I reviewed the patient's medical records Lab Data Lab results reviewed: Yes I reviewed the patient's lab results Labs: Lab Results 12/08/23 12/08/23 Range/Units 22:29 22:36 WBC 8.20 (4.50-11.00) K/uL RBC 4.77 (4.00-5.20) m/uL Hgb 14.9 (12.0-16.0) gm/dL Hct 44.9 (33.0-51.0) % MCV 94 (80-100) fL MCH 31 (26-34) pg MCHC 33 (32-36) gm/dL RDW Coeff of Justin 12.9 (11.5-15.5) % Plt Count 203 (140-440) K/uL Neut % (Auto) 64.4 (42.0-72.0) % Lymph % (Auto) 25.6 (20-44) % [place] % (Auto) 8.4 (0.0-11.0) % Eos % (Auto) 1.2 (0.0-7.0) % Baso % (Auto) 0.2 (0.0-3.0) % Neut # (Auto) 5.27 (1.7-7.0) K/uL Lymph # (Auto) 2.10 (0.90-2.90) K/uL [place] # (Auto) 0.70 (0.00-0.90) K/UL Eos # (Auto) 0.10 (0.00-0.50) K/uL Baso # (Auto) 0.02 (0.00-0.30) K/uL Abs Immat Gran (auto) 0.02 (0.00-0.30) K/uL Imm/Tot Granulo (auto) 0.2 % Sodium 136 (135-149) mmol/L Potassium 4.0 (3.6-5.1) mmol/L Chloride 102 (96-114) mmol/L Carbon Dioxide 26 (20-32) mmol/L Anion Gap 8 (7-15) mEq/L BUN 24 (7-30) mg/dL Creatinine 1.0 (0.5-1.5) mg/dL Estimated Creat Clear 32.73 Estimated GFR 56 ml/min Glucose 168 H (60-115) mg/dL Lactate 1.3 (0.5-1.9) mmol/L Calcium 9.8 (8.4-10.6) mg/dL Total Bilirubin 0.6 (0.1-1.5) mg/dL Direct Bilirubin 0.3 (0.0-0.5) mg/dL AST 37 H (12-35) U/L ALT 27 (4-35) U/L Alkaline Phosphatase 81 (40-150) U/L C-Reactive Protein < 0.5 L (0.5-1.0) mg/dL Total Protein 8.2 (6.0-8.3) g/dL Albumin 4.9 (3.3-5.0) g/dL Lipase 61 (23-300) U/L Urine Color Cancelled Urine Appearance Cancelled Urine pH Cancelled Ur Specific [place] Cancelled Urine Protein Cancelled Urine Glucose (UA) Cancelled Urine Ketones Cancelled Urine Blood Cancelled Urine Nitrite Cancelled Urine Bilirubin Cancelled Urine Urobilinogen Cancelled Ur Leukocyte Esterase Cancelled Urine RBC Cancelled Urine WBC Cancelled Urine WBC Clumps Cancelled Ur Squamous Epith Cells Cancelled [place] Biurate Crystals Cancelled Calcium Carbonate Cryst Cancelled Calcium Phosphate Cryst Cancelled Calcium Oxalate Crystal Cancelled Cystine Crystals Cancelled Uric Acid Crystals Cancelled Triple Phos Crystals Cancelled Sulfur Crystals Cancelled Cholesterol Crystals Cancelled Tyrosine Crystals Cancelled Hippuric Acid Crystals Cancelled Amorphous Sediment Cancelled Other Sediment Cancelled Urine Bacteria Cancelled Fatty Casts Cancelled Hyaline Casts Cancelled Fine Granular Casts Cancelled Coarse Granular Casts Cancelled Waxy Casts Cancelled RBC Casts Cancelled WBC Casts Cancelled Other Casts Cancelled Urine Starch Cancelled Urine Mucus Cancelled Urine Trichomonas Cancelled Urine Yeast Cancelled Discharge Plan Discharge Prescriptions: No Action multivitamin [Multiple Vitamins] Tablet 1 tab PO QDAY atorvastatin 20 mg tablet 20 mg PO QDAY Patient Comments: TAKE ONE TABLET BY MOUTH ONE TIME DAILY citalopram 20 mg tablet 20 mg PO QDAY Patient Comments: TAKE ONE TABLET BY MOUTH EVERY DAY IN THE MORNING. hydrochlorothiazide 25 mg tablet 25 mg PO QDAY Patient Comments: TAKE ONE TABLET BY MOUTH ONE TIME DAILY latanoprost 0.005 % drops 1 drp ophthalmic (eye) QDAY Patient Comments: PLACE 1 DROP INTO THE RIGHT EYE ONCE DAILY AT BEDTIME levothyroxine 112 mcg tablet 112 mcg PO QDAY metoprolol tartrate 25 mg tablet 12.5 mg PO BID Patient Comments: TAKE 0.5 TABLETS BY MOUTH TWICE DAILY pramipexole 0.25 mg tablet 0.125 mg PO QHS Patient Comments: TAKE 0.5 TABLETS BY MOUTH ONCE DAILY AT BEDTIME. Follow Up/Referrals: Angel Luis Khan MD [Primary Care Provider] -
--- NOTE | 2023-12-08 22:28 | CRLHL7_ITS ---
For Patients: As a result of the 21st Century Cures Act, medical imaging exams and procedure reports are released immediately into your electronic medical record. You may view this report before your referring provider. If you have questions, please contact your health care provider. INDICATION: Abdominal pain. TECHNIQUE: Multiplanar CT examination of the abdomen and pelvis was performed after the administration of 83 mL Isovue 370 intravenous contrast. COMPARISON: None. FINDINGS: Lower chest: No focal consolidation. Normal heart size. No pleural effusions or pneumothorax. Linear band like opacification of the lungs bilaterally, likely subsegmental atelectasis and/or scarring. Diffuse interstitial reticulations can be seen with fibrotic lung disease. Liver: Diffuse hepatic steatosis. There may be focal fatty infiltration in hepatic segment 4 along the falx, poorly characterized on this examination. Gallbladder: Unremarkable. Biliary: Unremarkable. Pancreas: Atrophic pancreas. Spleen: Unremarkable. Adrenal glands: Unremarkable. Renal/ureters/bladder: Normal in size and symmetrically enhancing. No obstructive uropathy. No hydronephrosis or obstructive urinary calculi. Simple left renal cyst measuring 5.2 cm. The ureters appear unremarkable. The bladder is within normal limits. Pelvis: Hysterectomy. Postsurgical changes the lower pelvis. Gastrointestinal: Questionable mild focal wall thickening involving a short segment of the ascending colon, no bowel obstruction. Prominent loops of small bowel in the mid abdomen and lower pelvis with fecalized contents. Colonic diverticulosis without pericolonic fat stranding or colonic wall thickening to suggest acute diverticulitis. Mild colonic stool burden. No pneumatosis intestinalis. Vasculature: No aortic aneurysm. The portal vein remains patent. Mild atherosclerotic calcifications. No portal venous gas. Lymph nodes: No pathologic lymphadenopathy by size criteria. Peritoneum: No free fluid or pneumoperitoneum. No drainable fluid collections. Abdominal wall/soft tissues: Ventral abdominal laparotomy scar. Small fat containing ventral abdominal hernia. Bones: No acute osseous abnormalities. Multilevel degenerative changes of the thoracolumbar spine. IMPRESSION: 1. Prominent loops of small bowel with fecalization of its contents, without definite transition point identified. Findings raise the possibility of ileus versus low-grade small bowel obstruction. 2. Diffuse hepatic steatosis. 3. Colonic diverticulosis without evidence of acute diverticulitis. Please note that all CT scans at this facility use dose modulation, iterative reconstruction, and/or weight-based dosing when appropriate to reduce radiation dose to as low as reasonably achievable. Dictated by Quintin Boggs MD @ 12/09/2023 1:36:56 AM (Electronically Signed)
[2023-12-08 22:41] LABS: Lactate* 1.3 mmol/L (0.5-1.9)
[2023-12-08 22:43] LABS: Basophils Absolute Auto 0.02 K/uL (0.00-0.30); Basophils Percent Auto 0.2 % (0.0-3.0); Eosinophils Percent Auto 1.2 % (0.0-7.0); Hematocrit 44.9 % (33.0-51.0); Hemoglobin* 14.9 gm/dL (12.0-16.0); Immature Granulocytes Abs Auto 0.02 K/uL (0.00-0.30); Immature Granulocytes Pct Auto 0.2 %; Lymphocytes Percent Auto 25.6 % (20-44); Mean Corpuscular HGB Conc 33 gm/dL (32-36); Mean Corpuscular Hemoglobin 31 pg (26-34); Mean Corpuscular Volume 94 fL (80-100); Monocytes Percent Auto 8.4 % (0.0-11.0); Neutrophils Absolute Auto 5.27 K/uL (1.7-7.0); Neutrophils Percent Auto 64.4 % (42.0-72.0); Platelet Count* 203 K/uL (140-440); RDW Coefficient of Variation % 12.9 % (11.5-15.5); Red Blood Count 4.77 m/uL (4.00-5.20)
[2023-12-08 22:47] LABS: Slide Review Reflex No
[2023-12-08] MEDS: 0.9 % SODIUM CHLORIDE 1000 ml 1,000 ML IV (22:51)
[2023-12-08] MEDS: ONDANSETRON 2 MG/ML inj 4 MG IVP (22:52)
[2023-12-08] MEDS: MORPHINE 4 MG/ML INJ IVP (22:52)
--- OUTSIDE RECORDS SUMMARY | 2023-12-08 23:06 | XMS_ITS | Clinical Summary ---
Author Organization [facility] Address [place], [place] [address] Care Team Providers Care Cardiac Exercise Specialist Name Role Phone Angel Luis Khan MD Primary Care Provider Allergies Active Allergy Reactions Criticality Noted Date Comments Diltiazem Other - Describe In Comment Field 01/29/2015 Patient can't recall specifically, but says it caused a problem long ago. Hydrocodone-Acetaminop hen Hives 01/06/2017 Lisinopril Intolerance-Can't Take 07/26/2007 cough Tramadol Hives 01/06/2017 Medications Medication Sig Dispensed Refills Start Date End Date Status MULTIVITAMIN TAB take 1 po daily 10/04/2008 Act yunier latanoprost (XALATAN) 0.005 % ophthalmic solution PLACE 1 DROP INTO THE RIGHT EYE ONCE DAILY AT BEDTIME. 04/05/2021 Active hydroCHLOROthiazide (HCTZ) 25 mg tabletIndications:Hyper tension, unspecified type TAKE ONE TABLET BY MOUTH ONE TIME DAILY 90 Tablet 3 05/11/2023 Active oxybutynin (DITROPAN) 5 mg tabletIndications:Urina ry incontinence, unspecified type Take 0.5 Tablets (2.5 mg) by mouth two times daily. 90 Tablet 3 05/10/2023 Active pramipexole (MIRAPEX) 0.25 mg tabletIndications:RLS (restless legs syndrome) TAKE 0.5 TABLETS BY MOUTH ONCE DAILY AT BEDTIME. 45 Tablet 3 05/10/2023 Active metoprolol tartrate (LOPRESSOR) 25 mg tabletIndications:Tachy cardia TAKE 0.5 TABLETS BY MOUTH TWICE DAILY 90 Tablet 3 05/10/2023 Active levothyroxine (SYNTHROID) 112 mcg tabletIndications:Acqui red hypothyroidism Take 1 Tablet (112 mcg) by mouth before breakfast. 90 Tablet 3 05/10/2023 Active atorvastatin (LIPITOR) 20 mg tabletIndications:Mixed hyperlipidemia Take 1 Tablet (20 mg) by mouth once daily. 90 Tablet 3 05/10/2023 Active citalopram (CELEXA) 20 mg tabletIndications:Adjus tment disorder with depressed mood Take 1 Tablet (20 mg) by mouth every morning. 90 Tablet 3 05/10/2023 Active Active Problems Problem Noted Date Diagnosed Date Skin cancer 11/28/2018 Overview: 11/22/18 right upper back, Superficial BCC, ED & C done 01/12/19 Sada Starks PA-C Acquired hypothyroidism 10/28/2015 Essential hypertension 10/28/2015 Irregular heart rhythm 02/25/2015 Coronary artery disease 01/29/2015 Urinary incontinence 09/28/2012 RLS (restless legs syndrome) 09/28/2012 Status post Sherrill fundoplic ation (without gastrostomy tube) procedure 03/15/2008 Impaired fasting glucose 07/26/2007 Mixed hyperlipidemia 05/19/2007 Obesity, unspecified 05/19/2007 Esophageal reflux 05/19/2007 Adjustment disorder with depressed mood 05/19/20 07 Resolved Problems Problem Noted Date Diagnosed Date Resolved Date Routine adult health maintenance 01/06/2017 03/12/2020 Overview: Colonoscopy 12/2016 hyperplastic polyp repeat in 10 years HYPERTENSION 09/12/2012 09/28/2012 Unspecified essential hypertension 07/26/2007 10/28/2015 Unspecified hypothyroidism 05/19/2007 0 10/28/2015 Immunizations Name Administration Dates Next Due AMB INFLUENZA IIV3 (AGE 65+ YRS) PF (Flu Clinic Only) 02/18/2017 AMB Influenza, IIV3 (Age >=3 years)(Flu Clinic Only) 02/21/2013,04/08/2010,02/25/2009,04/03 Amb Influenza, Inact (High-d ose) (Flu Clinic Only) 03/03/2016,02/20/2014 Amb Influenza, Inactivated A IIV4 (Age 65+ Years) Preserv Free 02/06/2020 COVID-19 Vaccine Spikevax (M oderna 50mcg/0.5mL) 12YO+ [id number] Formula PF 08/19/2023,03/10/2023 COVID-19 vaccine ([employer] NTech 30mcg/0.3mL) 12YO+ BIVALENT PF, MDV 09/15/2022,02/18/2022 COVID-19 vaccine ([employer] NTech 30mcg/0.3mL) 12YO+ DURAN-SUCROSE PF, MDV 09/17/2021 COVID-19 vaccine (Xola NTech 30mcg/0.3mL) PF, MDV 04/07/2021 HepA-HepB (Twinrix) 05/13/2007,12/06/2006,200611/28/2006 Influenza A (H1N1), Inactivated 06/06/2009 Influenza, High-dose Inactivated 01/30/2015 Influenza, IIV3 (Age >=3 years) 05/11/2012 Influenza, Inactivated AIIV4 (Age 65+ Years) Preserv Free 03/10/2023,03/06/2022,02/19/2021 Influenza, Inactivated IIV3 (Age 65+ Years) Preserv Free 02/03/2019,02/14/2018 Pneumococcal Conj 20-valent (Prevnar 20) 05/08/2022 Pneumococcal Poly,23-Valent (Pneumovax) 09/25/2011 Pneumococcal conj 13-Valent (Prevnar 13) 10/31/2014 Tdap 03/24/2022,09/25/2011,06/17/2006 Zoster (Shingrix-RZV, recombinant) 07/21/2018, Zoster (Zostavax-ZVL, live) 05/31/2008 Family History Medical History Relation Name Comments Cancer-breast Maternal Aunt Anesthesia Problem No Family History Relation Name Status Comments Maternal Aunt Social History Tobacco Use Types Packs/Day Years Used Date Smoking Tobacco: Never Smokeless Tobacco: Never Tobacco Cessation:Counseling Given: No Alcohol Use Standard Drinks/Week Comments Yes 5 (1 standard drink = 0.6 oz pur e alcohol) two glasses of wine per day. PHQ-2 Answer Date Recorded PHQ-2 TOTAL SCORE 0 05/10/2023 Social Connections Answer Date Recorded Frequency of Communication with Friends and Fami ly Not on file 05/20/2021 Financial Resource Strain Answer Date R ecorded Difficulty of Paying Living Expenses Not on file 05/20/2021 Difficulty of Paying Living Expenses Not on file 05/20/2021 Sex and Gender Information Value Date Recorded Sex Assigned at Not on file Gender Identity Not on file Sexual Orientation Not on file Obstetrics History Para Term AB IAB SAB Ectopic Multiple Livin g Live Births 2 2 2 Date Outcome GA Total Labor Labor/2nd/3rd Weight Sex Type Anes PTL Dinora A1 A5 Name Clin Term Term Last Filed Vital Signs Vital Sign Reading Time Taken Comments Blood Pressure 130/84 05/10/2023 2:01 PM SHIRRER Pulse 79 05/10/2023 2:01 PM SHIRRER Temperature 36.8 ??C (98.2 ??F) 05/06/2021 2:07 PM CS T Respiratory Rate 16 03/16/2016 3:01 PM CDT Oxygen Saturation 94% 05/10/2023 2:01 PM SHIRRER Inhaled Oxygen Concentration - - Weight 77 kg (169 lb 12.8 oz) 05/10/2023 2:01 PM SHIRRER Height 155.5 cm (5' 1.22) 05/10/2023 2:01 PM CS T Body Mass Index 31.85 05/10/2023 2:01 PM SHIRRER Plan of Treatment Upcoming Encounters Date Type Department Care Team (Late st Contact Info) Description 12/17/2023 1:15 PM CDT Office Visit [facility] [address] [place] [address] Angel Luis Khan MD [address] [place] [address] Health Maintenance Due Date Last Done Comments Influenza for age 65+ 01/23/2024 03/10/2023 , 03/06/2022, 02/19/2021, Additional history exists BMI (ht and wt on same day) for age 18+ 05/10/2024 05/10/2023, 05/08/2022, 04/07/2021, Additional history exists Medicare Wellness for age 65+ 05/10/2024, 05/08/2022, 04/07/2021, Additional history exists Depression screening for age 12+ 05/13/2024 05/13/2023, 05/10/2023, 05/10/2023, Additional history exists Tetanus booster 03/24/2032 03/24/2022, 0 08/2011, 06/17/2006 Zoster (shingles) series for age 50+ Completed 07/21/2018, 05/18/2018, 05/31/2008 Tdap Completed 03/24/2022, 08/2011, 06/17/2006 Pneumococcal series for age 65+ Completed 05/08/2022, 10/31/2014, 09/25/2011 DEXA/DXA scan for age 65+ Completed 2022, 02/07/2019, 10/26/2013, Additional history exists COVID-19 vaccine series Completed 08/19/19 24, 03/10/2023, 09/15/2022, Additional history exists Procedures Procedure Name Priority Date/Time Associated Diagnosis Comments XR DXA BONE DENSITY 2 SITES AXIAL Routine 05/13/2023 9:23 AM SHIRRER Asymptomatic postmenopausal state from Last 3 Months or Most Recently Relevant to Health Maintenance Results * (ABNORMAL) XR DXA BONE DENSITY 2 SITES AXIAL (05/13/2023 9:23 AM SHIRRER) Anatomical Region Laterality Modality Spine, HIPS, HIPL, HIPR Other Impressions 05/18/2023 1:39 PM SHIRRER Osteopenia. RECOMMENDATIONS: The National Osteoporosis Foundation recommends pharmacologic treatment for patients with T-scores of -2.5 or less, patients with prior history of fragility fractures, or patients with 10-year probability of greater than 3% at hips or greater than 20% of suffering major osteoporotic fractures. Recommend continued optimization of calcium and vitamin D intake through dietary means and/or supplementation and regular exercise. Consider pharmacologic therapy for osteopenia with increased fracture risk. Follow-up bone density reading in 2 years if therapy initiated to assess therapeutic efficacy. May Jeff PA-C [employer] [facility] 05/18/2023 Narrative 05/18/2023 1:39 PM SHIRRER For Patients: Results are automatically released to your [employer] (MyChart) account once available, in compliance with federal regulations. This means that you may see your results before your provider has had a chance to review them. Please allow 2-3 business days for your provider to comment on the results. XR DXA Bone Mineral Density (BMD) EXAM LOCATION: [facility] [address] [facility] [address] PATIENT NAME: Talya Coon DATE OF : 1940 EXAM DATE: 05/13/2023 REQUESTING PROVIDER: Angel Luis Khan MD GENDER AT : female HEIGHT: 5' 1.22 (05/10/2023) WEIGHT: ??169 lb 12.8 oz (05/10/2023) MENOPAUSAL STATUS: Postmenopausal RACE/ETHNICITY: White RISK FACTORS: Family History of Osteoporosis, History of Fragility Fracture (at a major site), and White Race CURRENT MEDICATION FOR BONE LOSS: NONE INDICATION: Asymptomatic postmenopausal state COMPARISON DATE(S): 2019 DXA scans are compared to prior studies for a patient only when the two (or more) studies were performed on the same scanner. It is not possible to compare data generated on one scanner to data from another because there are not standards in DXA equipment. This applies even if the two scanners are made by the same water inspector. PROCEDURE: Dual-energy x-ray absorptiometry performed with routine technique. Reporting is completed in the form of a T-score. The T-score represents the standard deviation from peak bone mass based on young healthy adult. A Z-score is used for diagnosis in premenopausal women, and for men under the age of 50. FINDINGS: RESULT LUMBAR SPINE L1 - L4 (w/o L3) BMD: 1.027 g/cm2 T-Score: - 1.2 Z-Score: + 0.3 Change from prior in 2019: ??Increase 0.3%. RESULTS FEMUR Left femoral neck BMD: 0.762 g/cm2 T-Score: - 2.0 Z-Score: + 0.0 Change from prior in 2019: ??Decrease 15.9%. Right femoral neck BMD: 0.730 g/cm2 T-Score: - 2.2 Z-Score: - 0.3 Change from prior in 2019: ??Increase 0.3%. Left hip BMD: 0.783 g/cm2 T-Score: - 1.8 Z-Score: + 0.0 Change from prior in 2019: ??Decrease 9.3%. Right hip BMD: 0.710 g/cm2 T-Score: - 2.4 Z-Score: - 0.6 Change from prior in 2019: ??Decrease 4.2%. WHO criteria: Normal: T-score at or above -1 SD Osteopenia: T-score between -1.1 and -2.4 SD Osteoporosis: T-score at or below -2.5 SD FRAX RISK CALCULATION (USED FOR OSTEOPENIA ONLY): 10-year probability of major osteoporotic fracture: 23.1%. 10-year probability of hip fracture: 6.9%. Angel Luis Khan MD DEXA from Last 3 Months or Most Recently Relevant to Health Maintenance Care Teams Cardiac Exercise Specialist Relationship Specialty Start Date End Date Angel Luis Khan MD [address] [place] [address] PCP - General 06/17/06
[2023-12-08 23:26] LABS: Chloride* 102 mmol/L (96-114)
[2023-12-08 23:27] LABS: Albumin* 4.9 g/dL (3.3-5.0); Sodium* 136 mmol/L (135-149)
[2023-12-08 23:29] LABS: Anion Gap 8 mEq/L (7-15); Carbon Dioxide* 26 mmol/L (20-32); Est. Creatinine Clearance* 32.73; Estimated Glomerular Filt Rate 56 ml/min
[2023-12-08 23:30] LABS: Alanine Aminotransferase* 27 U/L (4-35); Alkaline Phosphatase* 81 U/L (40-150); Aspartate Amino Transferase* 37 U/L (12-35); Bilirubin Direct* 0.3 mg/dL (0.0-0.5); Bilirubin Total* 0.6 mg/dL (0.1-1.5); Blood Urea Nitrogen* 24 mg/dL (7-30); Calcium* 9.8 mg/dL (8.4-10.6); Glucose* 168 mg/dL (60-115); Lipase* 61 U/L (23-300); Total Protein* 8.2 g/dL (6.0-8.3)
[2023-12-08 23:32] VITALS: BP 174/70; PULSE 58; RESP 18; O2SAT 90
[2023-12-08 23:35] LABS: C Reactive Protein* < 0.5 mg/dL (0.5-1.0)
[2023-12-09] VITALS (11 sets, daily range): BP systolic 135–175; BP diastolic 53–81; PULSE 55–65; RESP 14–20; TEMP 36.4–37; O2SAT 84–97; BMI 32.5
[2023-12-09] MEDS: MORPHINE 2 MG/ML inj IVP (01:08)
[2023-12-09] MEDS: PROMETHAZINE 25 MG/ML INJ 12.5 MG IVP (01:13)
[2023-12-09] MEDS: HYDROmorphone 0.5 mg/0.5 ml inj IVP (01:13)
--- NOTE | 2023-12-09 05:11 | W.PM.THH&P_ITS ---
Telehealth- H&P: HPI History of Present Illness Time Seen by Provider: 04:45 Date Seen: 12/09/23 Chief complaint: abdominal pain Narrative: Talya Coon is seen as an Interactive Telehealth visit. Talya Coon is a 83 year old Female with history of essential hypertension hypothyroidism multiple abdominal surgeries who states that she had some vague discomfort intermittently of her abdomen for the last several days and then on the day of presentation to the ER yesterday she developed severe worsening abdominal pain. Last abdominal bowel movement was yesterday morning. She has been significantly nauseated but not vomiting. She has history of Niesen fundoplication. She presented to the emergency room where imaging showed a partial small bowel obstruction versus an ileus with no definitive transition point. Being admitted for symptomatic treatment and clinical following. Review of Systems Status of ROS: Reports: 10 or more systems reviewed and unremarkable except as noted in History and below [facility] Medical History Irregular heart rhythm ?I49.9 - Cardiac arrhythmia, unspecified (ICD-10) Restless legs ?G25.81 - Restless legs syndrome (ICD-10) Urinary incontinence ?R32 - Unspecified urinary incontinence (ICD-10) Adjustment disorder with depressed mood ?F43.21 - Adjustment disorder with depressed mood (ICD-10) Acquired hypothyroidism ?E03.9 - Hypothyroidism, unspecified (ICD-10) Impaired fasting glucose ?R73.01 - Impaired fasting glucose (ICD-10) Mixed hyperlipidemia ?E78.2 - Mixed hyperlipidemia (ICD-10) Essential hypertension ?I10 - Essential (primary) hypertension (ICD-10) Coronary artery disease ?I25.10 - Atherosclerotic heart disease of [place] coronary artery without angina pectoris (ICD-10) Surgical History Status post Sherrill fundoplication (without gastrostomy tube) procedure ?Z98.890 - Other specified postprocedural states (ICD-10) Status post trigger finger release (03/31/23) ?Z98.890 - Other specified postprocedural states (ICD-10) History of open reduction and internal fixation (ORIF) procedure (03/31/23) ?Z98.890 - Other specified postprocedural states (ICD-10) History of phacoemulsification of cataract of left eye with intraocular lens implantation (10/10/08) ?Z98.42 - Cataract extraction status, left eye (ICD-10) ?Z96.1 - Presence of intraocular lens (ICD-10) History of YAG laser capsulotomy of lens of right eye (11/21/08) ?Z98.41 - Cataract extraction status, right eye (ICD-10) History of bladder surgery ?Z98.890 - Other specified postprocedural states (ICD-10) History of bunionectomy of both great toes ?Z98.890 - Other specified postprocedural states (ICD-10) History of hysterectomy (1992) ?Z90.710 - Acquired absence of both cervix and uterus (ICD-10) History of colectomy (~2007) ?Z90.49 - Acquired absence of other specified parts of digestive tract (ICD- 10) H/O repair of right rotator cuff (~2013) ?Z98.890 - Other specified postprocedural states (ICD-10) 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) ?Z96.651 - Presence of right artificial knee joint (ICD-10) Social History Narrative: -[place] What is your current living situation?: I presently have a place to live Problems where you live: no known problems Problems where you live details: n/a In the past 12 months, utilities in danger of being shut off: no In past 12 months, lack of transportation kept you from medical appts, meetings, work, or getting things needed for daily living: no In the past 12 mos, have been you worried that your food would run out before you had money to buy more?: never true In the past 12 mos, the food you bought just didn't last and you didn't have money to buy more?: never true Smoking Status: Never smoker Do you use any of these nicotine containing products: None Second hand tobacco smoke exposure: No How often do you have a drink containing alcohol: 4 or more times a week How many standard drinks containing alcohol do you have on a typical day: 5 or 6 How often do you have six or more drinks on one occasion: Daily or almost daily AUDIT-C Alcohol total score: 10 Non-prescribed substance use: denies use Caffeine: Yes How often does anyone, including family, friends and others, physically hurt you : never How often does anyone, including family, friends and others, insult or talk down to you: never How often does anyone, including family, friends and others, threaten you with harm: never How often does anyone, including family, friends and others, scream or curse at you: never Meds Home Medications and Allergies Home Medications ?Medication ?Instructions ?Recorded ?Confirmed ?Type atorvastatin 20 mg tablet 20 mg PO QDAY 03/30/23 12/03/23 History citalopram 20 mg tablet 20 mg PO QDAY 03/30/23 12/03/23 History hydrochlorothiazide 25 mg tablet 25 mg PO QDAY 03/30/23 12/03/23 History latanoprost 0.005 % eye drops 1 drp ophthalmic (eye) QDAY 03/30/23 12/03/23 History levothyroxine 112 mcg tablet 112 mcg PO QDAY 03/30/23 12/03/23 History metoprolol tartrate 25 mg tablet 12.5 mg PO BID 03/30/23 12/03/23 History multivitamin (Multiple Vitamins 1 tab PO QDAY 03/30/23 12/03/23 History tablet) pramipexole 0.25 mg tablet 0.125 mg PO QHS 03/30/23 12/03/23 History Allergies Allergy/AdvReac Type Severity Reaction Status Date / Time acetaminophen Allergy Mild Hives Verified 12/03/23 09:50 [From Panlor (hydrocodone-acetamin)] hydrocodone Allergy Mild Hives Verified 12/03/23 09:50 [From Panlor (hydrocodone-acetamin)] tramadol Allergy Mild Hives Verified 12/03/23 08:40 diltiazem [From Cardizem] AdvReac Mild Verified 12/03/23 08:40 lisinopril AdvReac Mild Cough Verified 12/03/23 08:40 Exam Narrative Exam Narrative: Physical Exam GENERAL: ?vital signs reviewed, well developed and nourished, in no distress HEENT: pupils are equal round and reactive to light, extraocular movements are grossly within normal limits and oral mucosa is moist. NECK: Supple without lymphadenopathy or thyromegaly according to nursing staff examination observation HEART: Regular rate and rhythm , 2-3/6 blowing soft holosystolic murmur,along LSB LUNGS: Clear to auscultation bilaterally with good air movement throughout ABDOMEN: Observation from nurse assisted exam, abdomen appears soft, nontender, and nondistended with increased bowel sounds EXTREMITIES: Strength and sensation is observed to be grossly within normal limits in the upper and lower extremities.? No focal strength deficit is observed. mild LE edema at foot SKIN:? Observed warm and dry with color normal Const Vital Signs, click to edit/add: Vital Signs - 24 hr 12/08/23 22:15 12/08/23 23:32 12/09/23 01:00 Temperature 97.9 F 97.9 F Pulse Rate [Pulse Oximeter] 62 58 L 59 L Respiratory Rate 20 18 18 Blood Pressure [Left Forearm] 201/83 H 174/70 H Blood Pressure [Right Arm] Pulse Oximetry 95 90 84 L Oxygen Delivery Method Room Air Room Air Room Air Oxygen Flow Rate Fraction of Inspired Oxygen 12/09/23 01:02 12/09/23 01:55 12/09/23 01:57 Temperature Pulse Rate [Pulse Oximeter] 59 L Respiratory Rate 18 16 Blood Pressure [Left Forearm] 150/79 H Blood Pressure [Right Arm] Pulse Oximetry 90 96 Oxygen Delivery Method Nasal Cannula Nasal Cannula Nasal Cannula Oxygen Flow Rate 2 Fraction of Inspired Oxygen 2 2 12/09/23 03:28 12/09/23 03:28 Temperature 97.7 F Pulse Rate [Pulse Oximeter] 62 Respiratory Rate 20 20 Blood Pressure [Left Forearm] Blood Pressure [Right Arm] 148/62 H Pulse Oximetry 91 96 Oxygen Delivery Method Nasal Cannula Nasal Cannula Oxygen Flow Rate 2 2 Fraction of Inspired Oxygen Hospitalist - H&P: Result Labs Labs: Short CBC 12/08/23 Range/Units 22:36 WBC 8.20 (4.50-11.00) K/uL Hgb 14.9 (12.0-16.0) gm/dL Hct 44.9 (33.0-51.0) % Plt Count 203 (140-440) K/uL Laboratory Results - last 24 hr 12/08/23 12/08/23 22:29 22:36 WBC 8.20 RBC 4.77 Hgb 14.9 Hct 44.9 MCV 94 MCH 31 MCHC 33 RDW Coeff of Justin 12.9 Plt Count 203 Neut % (Auto) 64.4 Lymph % (Auto) 25.6 [place] % (Auto) 8.4 Eos % (Auto) 1.2 Baso % (Auto) 0.2 Neut # (Auto) 5.27 Lymph # (Auto) 2.10 [place] # (Auto) 0.70 Eos # (Auto) 0.10 Baso # (Auto) 0.02 Abs Immat Gran (auto) 0.02 Imm/Tot Granulo (auto) 0.2 Sodium 136 Potassium 4.0 Chloride 102 Carbon Dioxide 26 Anion Gap 8 BUN 24 Creatinine 1.0 Estimated Creat Clear 32.73 Estimated GFR 56 Glucose 168 H Lactate 1.3 Calcium 9.8 Total Bilirubin 0.6 Direct Bilirubin 0.3 AST 37 H ALT 27 Alkaline Phosphatase 81 C-Reactive Protein < 0.5 L Total Protein 8.2 Albumin 4.9 Lipase 61 Urine Color Cancelled Urine Appearance Cancelled Urine pH Cancelled Ur Specific [place] Cancelled Urine Protein Cancelled Urine Glucose (UA) Cancelled Urine Ketones Cancelled Urine Blood Cancelled Urine Nitrite Cancelled Urine Bilirubin Cancelled Urine Urobilinogen Cancelled Ur Leukocyte Esterase Cancelled Urine RBC Cancelled Urine WBC Cancelled Urine WBC Clumps Cancelled Ur Squamous Epith Cells Cancelled [place] Biurate Crystals Cancelled Calcium Carbonate Cryst Cancelled Calcium Phosphate Cryst Cancelled Calcium Oxalate Crystal Cancelled Cystine Crystals Cancelled Uric Acid Crystals Cancelled Triple Phos Crystals Cancelled Sulfur Crystals Cancelled Cholesterol Crystals Cancelled Tyrosine Crystals Cancelled Hippuric Acid Crystals Cancelled Amorphous Sediment Cancelled Other Sediment Cancelled Urine Bacteria Cancelled Fatty Casts Cancelled Hyaline Casts Cancelled Fine Granular Casts Cancelled Coarse Granular Casts Cancelled Waxy Casts Cancelled RBC Casts Cancelled WBC Casts Cancelled Other Casts Cancelled Urine Starch Cancelled Urine Mucus Cancelled Urine Trichomonas Cancelled Urine Yeast Cancelled Imaging CT Chest/Ab/Pelvis: Attestation: I have reviewed the pertinent imaging results. Radiologist's impression: [place] [address] Diagnostic Imaging Report Patient: Talya Coon MR#: [id number] : 1940 Acct:[id number] Loc: ED Service Date: 12/08/[address]: Ordering Physician: Grey Pereira M.D. Date of Service: 12/08/23 Procedure(s): CT abdomen pelvis w con Accession Number(s): [id number] cc: Angel Luis Khan M.D.; Grey Pereira M.D.~ ADDENDUMINDICATION: Abdominal pain. TECHNIQUE: Multiplanar CT examination of the abdomen and pelvis was performed after the administration of 83 mL Isovue 370 intravenous contrast. COMPARISON: None. FINDINGS: Lower chest: No focal consolidation. Normal heart size. No pleural effusions or pneumothorax. Linear band like opacification of the lungs bilaterally, likely subsegmental atelectasis and/or scarring. Diffuse interstitial reticulations can be seen with fibrotic lung disease. Liver: Diffuse hepatic steatosis. There may be focal fatty infiltration in hepatic segment 4 along the falx, poorly characterized on this examination. Gallbladder: Unremarkable. Biliary: Unremarkable. Pancreas: Atrophic pancreas. Spleen: Unremarkable. Adrenal glands: Unremarkable. Renal/ureters/bladder: Normal in size and symmetrically enhancing. No obstructive uropathy. No hydronephrosis or obstructive urinary calculi. Simple left renal cyst measuring 5.2 cm. The ureters appear unremarkable. The bladder is within normal limits. Pelvis: Hysterectomy. Postsurgical changes the lower pelvis. Gastrointestinal: Questionable mild focal wall thickening involving a short segment of the ascending colon, no bowel obstruction. Prominent loops of small bowel in the mid abdomen and lower pelvis with fecalized contents. Colonic diverticulosis without pericolonic fat stranding or colonic wall thickening to suggest acute diverticulitis. Mild colonic stool burden. No pneumatosis intestinalis. Vasculature: No aortic aneurysm. The portal vein remains patent. Mild atherosclerotic calcifications. No portal venous gas. Lymph nodes: No pathologic lymphadenopathy by size criteria. Peritoneum: No free fluid or pneumoperitoneum. No drainable fluid collections. Abdominal wall/soft tissues: Ventral abdominal laparotomy scar. Small fat containing ventral abdominal hernia. Bones: No acute osseous abnormalities. Multilevel degenerative changes of the thoracolumbar spine. IMPRESSION: 1. Prominent loops of small bowel with fecalization of its contents, without definite transition point identified. Findings raise the possibility of ileus versus low-grade small bowel obstruction. 2. Diffuse hepatic steatosis. 3. Colonic diverticulosis without evidence of acute diverticulitis. Please note that all CT scans at this facility use dose modulation, iterative reconstruction, and/or weight-based dosing when appropriate to reduce radiation dose to as low as reasonably achievable. Dictated by uQintin Boggs MD @ 12/09/2023 1:36:56 AM ----- ADDENDUM ----- Upon retrospective review, there may be a single transition point in the right lower quadrant association with an internal hernia (2:85-102). These findings would be compatible with a low-grade mechanical bowel obstruction. Dictated by Quintin Boggs MD @ Dec 09 2023 1:38AM Assessment and Plan Assessment and plan (1) SBO (small bowel obstruction): Status: Acute (2) Hypothyroidism: Status: Acute (3) HTN (hypertension): Status: Acute Plan 83-year-old female who presents with less than 24 hours of worsening abdominal pain nausea without vomiting. On exam she is afebrile vital signs are stable abdomen abdomen is soft and nontender. CT imaging shows a small bowel obstruction with a possible transition point in the right lower quadrant may be representing an internal hernia. Plan will be to: 1. Admit keep n.p.o. 2. Post surgery 3. Symptomatic relief with ondansetron and low-dose morphine if needed CODE STATUS full DVT prophylaxis sequential intermittent compression devices Total Time Spent Total Time Spent: 50 min Telehealth: Statement Statement Telehealth Visit: Today's History and Physical is provided via interactive telehealth by Last Malik MD.? Patient is located at [facility].? Provider is located at [facility].? Nursing staff assisted with the patient's exam. The visit being done today meets criteria for a telehealth visit and the patient or patient?s parent/guardian is aware the visit is a telehealth visit. Camera Start Time: 04:45 Camera End Time: 05:05
[2023-12-09] MEDS: 0.9 % SODIUM CHLORIDE 1000 ml 1,000 ML 75 ML IV (07:34)
[2023-12-09] MEDS: ONDANSETRON ODT 4 MG TAB PO (07:49)
--- NOTE | 2023-12-09 08:41 | PC.NURSE ---
Patient admitted from ED at 0314. Patient very drowsy upon arrival, dozing off frequently during admission. Alert and oriented this morning. Ambulated with gait belt, cane and assist of one. NPO. Given ice chips. Bowel sounds active. Denied pain during the night. Some nausea later this am.
[2023-12-09] MEDS: MORPHINE 2 MG/ML inj 1 MG IVP (09:53)
--- NOTE | 2023-12-09 10:15 | P.IMPN_ITS ---
Progress Note: A&P Assessment and plan (1) SBO (small bowel obstruction): Problem details: -NPO other than sips/chips -IVF support; NG if nausea or vomiting is not well controlled/tolerated -hx of colectomy, hysterectomy, bladder surgery and katerin fundoplication -supportive cares -consider gastrograffin challenge in the next 24 hours/gen surg consult Status: Acute (2) HTN (hypertension): Problem details: resume home antihypertensives dosing when taking PO Status: Acute (3) Coronary artery disease: Problem details: Stress test in 2014: Negative for ischemia Coronary CTA 07/2007 - showed extensive plaques but not critical stenosis Coronary Anatomy: (Right Dominant) Left Main: No stenosis, no plaque. Left Anterior Descending: Mild stenosis with calcific and non-calcific plaque. First Diagonal: Mild stenosis, calcific plaque. Circumflex: Mild stenosis, calcific plaque. First Obtuse Marginal: Mild stenosis, calcific plaque. Right Coronary Artery: Mild to moderate stenosis with calcific plaque. Posterior Descending Artery: No stenosis, no plaque. Impression 1. No severe stenosis noted. 2. Extensive calcific and non-calcific plaque. Status: Acute (4) Hyperlipidemia: Problem details: resume home statin dosing when taking PO Status: Acute (5) Depression: Problem details: resume home antidepressant dosing when taking PO Status: Acute (6) Hypothyroidism: Problem details: resume home synthroid dosing when taking PO Status: Acute Subjective Date Seen: 12/09/23 Interval history: Daily Progress Note - Hospital Medicine Day #: 1 (admitted earlier this morning by Tele-health) CC: SBO OVERNIGHT UPDATES FROM STAFF & MED, LAB, IMAGING UPDATES Objective: Vitals: see above Lungs: Clear. Cardiac: S1S2. Disposition/Potential discharge - Likely to return to previous living situation. Today I spent 50minutes seeing the patient, reviewing Expanse and EPIC notes/diagnostics, discussing the care plan with our care time that includes social work, PT/OT, pharmacy, RT, long-term and documenting my impressions and plan in the medical record. Prolonged Physician Services [id number] ([facility]) in conjunction with: [id number] (subsequent visit; 50 mins + 15 mins prolonged services = 65 mins total) I then went back for 15 mins to discuss the findings of ..... Alcohol 86547 >30 mins. We went over all the stigmata of alcoholism I see in this patient. I discussed the effects of chronic alcohol on the brain, liver, and heart. I recommended complete abstinence from alcohol and instructed on programs available at discharge from acute care. Smoking/Tobacco 09505 >10 mins. I went over the clinical stigmata of chronic tobacco use on the body. I explained the effect on the vasculature, lungs, heart, skin. I recommended complete abstinence from tobacco products and instructed on programs available at discharge from acute care. ACP first 30 mins [id number] I went over options for care during this current hospitalization and explained the difference between palliative care and hospice care. I described the likelihood of returning to previous functioning and what the options are going forward for care. Exam Const: Vital Signs, click to edit/add: Vital Signs - 24 hr 12/08/23 22:15 12/08/23 23:32 12/09/23 01:00 Temperature 97.9 F 97.9 F Pulse Rate [Pulse Oximeter] 62 58 L 59 L Respiratory Rate 20 18 18 Blood Pressure [Le ft Forearm] 201/83 H 174/70 H Blood Pressure [Ri ght Arm] Pulse Oximetry 95 90 84 L Oxygen Delivery Me thod Room Air Room Air Room Air Oxygen Flow Rate Fraction of Inspir ed Oxygen 12/09/23 01:02 12/09/23 01:55 12/09/23 01:57 Temperature Pulse Rate [Pulse Oximeter] 59 L Respiratory Rate 18 16 Blood Pressure [Le ft Forearm] 150/79 H Blood Pressure [Ri ght Arm] Pulse Oximetry 90 96 Oxygen Delivery Me thod Nasal Cannula Nasal Cannula Nasal Cannula Oxygen Flow Rate 2 Fraction of Inspir ed Oxygen 2 2 12/09/23 03:28 12/09/23 03:28 12/09/23 07:46 Temperature 97.7 F 97.6 F Pulse Rate [Pulse Oximeter] 62 56 L Respiratory Rate 20 20 16 Blood Pressure [Le ft Forearm] Blood Pressure [Ri ght Arm] 148/62 H 175/81 H Pulse Oximetry 96 96 94 Oxygen Delivery Me thod Nasal Cannula Nasal Cannula Room Air Oxygen Flow Rate 2 2 Fraction of Inspir ed Oxygen Labs Labs: Laboratory Results - last 24 hr 12/08/23 12/08/23 22:29 22:36 WBC 8.20 RBC 4.77 Hgb 14.9 Hct 44.9 MCV 94 MCH 31 MCHC 33 RDW Coeff of Justin 12.9 Plt Count 203 Neut % (Auto) 64.4 Lymph % (Auto) 25.6 [place] % (Auto) 8.4 Eos % (Auto) 1.2 Baso % (Auto) 0.2 Neut # (Auto) 5.27 Lymph # (Auto) 2.10 [place] # (Auto) 0.70 Eos # (Auto) 0.10 Baso # (Auto) 0.02 Abs Immat Gran (auto) 0.02 Imm/Tot Granulo (auto) 0.2 Sodium 136 Potassium 4.0 Chloride 102 Carbon Dioxide 26 Anion Gap 8 BUN 24 Creatinine 1.0 Estimated Creat Clear 32.73 Estimated GFR 56 Glucose 168 H Lactate 1.3 Calcium 9.8 Total Bilirubin 0.6 Direct Bilirubin 0.3 AST 37 H ALT 27 Alkaline Phosphatase 81 C-Reactive Protein < 0.5 L Total Protein 8.2 Albumin 4.9 Lipase 61 Urine Color Cancelled Urine Appearance Cancelled Urine pH Cancelled Ur Specific [place] Cancelled Urine Protein Cancelled Urine Glucose (UA) Cancelled Urine Ketones Cancelled Urine Blood Cancelled Urine Nitrite Cancelled Urine Bilirubin Cancelled Urine Urobilinogen Cancelled Ur Leukocyte Esterase Cancelled Urine RBC Cancelled Urine WBC Cancelled Urine WBC Clumps Cancelled Ur Squamous Epith Cells Cancelled [place] Biurate Crystals Cancelled Calcium Carbonate Cryst Cancelled Calcium Phosphate Cryst Cancelled Calcium Oxalate Crystal Cancelled Cystine Crystals Cancelled Uric Acid Crystals Cancelled Triple Phos Crystals Cancelled Sulfur Crystals Cancelled Cholesterol Crystals Cancelled Tyrosine Crystals Cancelled Hippuric Acid Crystals Cancelled Amorphous Sediment Cancelled Other Sediment Cancelled Urine Bacteria Cancelled Fatty Casts Cancelled Hyaline Casts Cancelled Fine Granular Casts Cancelled Coarse Granular Casts Cancelled Waxy Casts Cancelled RBC Casts Cancelled WBC Casts Cancelled Other Casts Cancelled Urine Starch Cancelled Urine Mucus Cancelled Urine Trichomonas Cancelled Urine Yeast Cancelled
[2023-12-09] MEDS: METOPROLOL TARTRATE 1 MG/ML inj 5 MG IVP ×3 (11:28→22:22)
[2023-12-09 12:05] LABS: Basophils Absolute Auto 0.01 K/uL (0.00-0.30); Basophils Percent Auto 0.1 % (0.0-3.0); Hematocrit 44.1 % (33.0-51.0); Hemoglobin* 14.4 gm/dL (12.0-16.0); Immature Granulocytes Abs Auto 0.01 K/uL (0.00-0.30); Immature Granulocytes Pct Auto 0.1 %; Mean Corpuscular HGB Conc 33 gm/dL (32-36); Mean Corpuscular Hemoglobin 31 pg (26-34); Mean Corpuscular Volume 96 fL (80-100); Neutrophils Percent Auto 85.8 % (42.0-72.0); Platelet Count* 137 K/uL (140-440); RDW Coefficient of Variation % 13.1 % (11.5-15.5); Red Blood Count 4.59 m/uL (4.00-5.20); White Blood Count* 7.33 K/uL (4.50-11.00)
[2023-12-09 12:06] LABS: Slide Review Reflex No
[2023-12-09 12:14] LABS: INR 0.92 (0.91-1.10); Prothrombin Time 12.9 Seconds
[2023-12-09 12:23] LABS: C Reactive Protein* < 0.5 mg/dL (0.5-1.0)
--- NOTE | 2023-12-09 15:06 | PM.GSCN ---
History of Present Illness Consult details Date Seen: 12/09/23 Consult date: 12/09/23 Narrative: 83-year-old female was admitted to the hospital with small-bowel obstruction and I was asked by Dr. Gregory to see her in consultation. Patient and her provides the history. Patient developed right sided abdominal pain yesterday in the middle of the day. After eating dinner the pain intensified and was pretty severe. She was dry heaving. Patient was unable to vomit due to history of Sherrill fundoplication. Because the pain was intense, she was brought to the emergency room. She was not passing gas yesterday. Her last bowel movement was yesterday in the morning. Patient had a similar episode of pain in 2014. She was also diagnosed with small-bowel obstruction and that resolved with conservative measures. Her surgical history includes hysterectomy and Sherrill fundoplication. In our electronic medical record there is a mention of colectomy however neither the patient or can recall if part of her large or small intestine was removed. I personally reviewed her laboratory and imaging findings. She was found to have normal WBC yesterday and her WBC today is normal. Her CRP was normal yesterday and continues to be normal today. An abdominal CT was obtained that showed dilated loops of small bowel with fecalization. There is a focal thickening in the ascending colon of unknown etiology. Last colonoscopy was in 2017 at [facility]. Patient states that her pain has improved since yesterday and she denies pain altogether. She started to pass gas. Review of Systems Narrative: General: no fevers HENT: no problems swallowing CV: no shortness of breath Resp: no cough GI: No nausea, vomiting, abdominal pain : no dysuria, no increased urinary frequency, no hematuria Skin: no new rashes Musculoskeletal: no back pain Neuro: no muscle weakness Psyche: no depression, no anxiety 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 - Other specified acquired deformities of left upper arm (ICD-10) Anterior shoulder dislocation (04/11/22) ?S43.016A - Anterior dislocation of unspecified humerus, initial encounter (ICD-10) Bankart lesion of left shoulder ?S43.492A - Other sprain of left shoulder joint, initial encounter (ICD-10) Rotator cuff tear, left ?M75.102 - Unspecified rotator cuff tear or rupture of left shoulder, not specified as traumatic (ICD-10) Tendinopathy of left biceps ?M67.922 - Unspecified disorder of synovium and tendon, left upper arm (ICD-10) Osteoarthritis of left knee ?M17.12 - Unilateral primary osteoarthritis, left knee (ICD-10) Irregular heart rhythm ?I49.9 - Cardiac arrhythmia, unspecified (ICD-10) Restless legs ?G25.81 - Restless legs syndrome (ICD-10) Urinary incontinence ?R32 - Unspecified urinary incontinence (ICD-10) Adjustment disorder with depressed mood ?F43.21 - Adjustment disorder with depressed mood (ICD-10) Acquired hypothyroidism ?E03.9 - Hypothyroidism, unspecified (ICD-10) Impaired fasting glucose ?R73.01 - Impaired fasting glucose (ICD-10) Mixed hyperlipidemia ?E78.2 - Mixed hyperlipidemia (ICD-10) Essential hypertension ?I10 - Essential (primary) hypertension (ICD-10) Coronary artery disease ?I25.10 - Atherosclerotic heart disease of kaw coronary artery without angina pectoris (ICD-10) Surgical History (Updated 12/09/23 @ 10:23 by Dhara Gregory MD) Status post Sherrill fundoplication (without gastrostomy tube) procedure ?Z98.890 - Other specified postprocedural states (ICD-10) Status post trigger finger release (03/31/23) ?Z98.890 - Other specified postprocedural states (ICD-10) History of open reduction and internal fixation (ORIF) procedure (03/31/23) ?Z98.890 - Other specified postprocedural states (ICD-10) History of phacoemulsification of cataract of left eye with intraocular lens implantation (10/10/08) ?Z98.42 - Cataract extraction status, left eye (ICD-10) ?Z96.1 - Presence of intraocular lens (ICD-10) History of YAG laser capsulotomy of lens of right eye (11/21/08) ?Z98.41 - Cataract extraction status, right eye (ICD-10) History of bladder surgery ?Z98.890 - Other specified postprocedural states (ICD-10) History of bunionectomy of both great toes ?Z98.890 - Other specified postprocedural states (ICD-10) History of hysterectomy (1993) ?Z90.710 - Acquired absence of both cervix and uterus (ICD-10) History of colectomy (~2007) ?Z90.49 - Acquired absence of other specified parts of digestive tract (ICD-10) H/O repair of right rotator cuff (~2013) ?Z98.890 - Other specified postprocedural states (ICD-10) 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) ?Z96.651 - Presence of right artificial knee joint (ICD-10) Social History Narrative: -[place] What is your current living situation?: I presently have a place to live Problems where you live: no known problems Problems where you live details: n/a In the past 12 months, utilities in danger of being shut off: no In past 12 months, lack of transportation kept you from medical appts, meetings, work, or getting things needed for daily living: no In the past 12 mos, have been you worried that your food would run out before you had money to buy more?: never true In the past 12 mos, the food you bought just didn't last and you didn't have money to buy more?: never true Smoking Status: Never smoker Do you use any of these nicotine containing products: None Second hand tobacco smoke exposure: No How often do you have a drink containing alcohol: 4 or more times a week Alcohol type: wine Alcohol type details: Reports she drinks 2 glasses of wine with supper at night How many standard drinks containing alcohol do you have on a typical day: 1 or 2 How often do you have six or more drinks on one occasion: Daily or almost daily AUDIT-C Alcohol total score: 8 Non-prescribed substance use: denies use Caffeine: Yes How often does anyone, including family, friends and others, physically hurt you: never How often does anyone, including family, friends and others, insult or talk down to you: never How often does anyone, including family, friends and others, threaten you with harm: never How often does anyone, including family, friends and others, scream or curse at you: never Meds Home Medications and Allergies Home Medications ?Medication ?Instructions ?Recorded ?Confirmed ?Type atorvastatin 20 mg tablet 20 mg PO DAILY 03/30/23 12/09/23 History citalopram 20 mg tablet 20 mg PO DAILY 03/30/23 12/09/23 History hydrochlorothiazide 25 mg tablet 25 mg PO DAILY 03/30/23 12/09/23 History latanoprost 0.005 % eye drops 1 drp ophthalmic (eye) HS 03/30/23 12/09/23 History levothyroxine 112 mcg tablet 112 mcg PO DAILY 03/30/23 12/09/23 History metoprolol tartrate 25 mg tablet 12.5 mg PO BID 03/30/23 12/09/23 History multivitamin (Multiple Vitamins 1 tab PO DAILY 03/30/23 12/09/23 History tablet) pramipexole 0.25 mg tablet 0.125 mg PO HS 03/30/23 12/09/23 History oxybutynin chloride 5 mg tablet 2.5 mg PO BID 12/09/23 12/09/23 History Allergies Allergy/AdvReac Type Severity Reaction Status Date / Time acetaminophen Allergy Mild Hives Verified 12/03/23 09:50 [From Panlor (hydrocodone-acetamin)] hydrocodone Allergy Mild Hives Verified 12/03/23 09:50 [From Panlor (hydrocodone-acetamin)] tramadol Allergy Mild Hives Verified 12/03/23 08:40 diltiazem [From Cardizem] AdvReac Mild Verified 12/03/23 08:40 lisinopril AdvReac Mild Cough Verified 12/03/23 08:40 Exam Narrative: Exam Narrative: General appearance: Alert, cooperative, and in no distress Pulmonary: Chest symmetric, lungs clear bilaterally Cardiovascular Heart: Regular rate and rhythm, S1, S2, no murmurs/rubs/gallops Gastrointestinal Abdominal: soft, not distended, minimally tender to palpation in the right mid abdomen lateral to the umbilicus with no peritoneal signs. There is no tenderness to palpation anywhere else and there is no tenderness to percussion anywhere in the abdomen. Skin: Normal skin color, texture, and turgor. No rashes or lesions. Psychiatric: Alert, cooperative, normal affect. Const: Vital Signs, click to edit/add: Vital Signs - 24 hr 12/08/23 22:15 12/08/23 23:32 12/09/23 01:00 Temperature 97.9 F 97.9 F Pulse Rate [Pulse Oximeter] 62 58 L 59 L Respiratory Rate 20 18 18 Blood Pressure [Le ft Forearm] 201/83 H 174/70 H Blood Pressure [Ri ght Arm] Pulse Oximetry 95 90 84 L Oxygen Delivery Me thod Room Air Room Air Room Air Oxygen Flow Rate Fraction of Inspir ed Oxygen 12/09/23 01:02 12/09/23 01:55 12/09/23 01:57 Temperature Pulse Rate [Pulse Oximeter] 59 L Respiratory Rate 18 16 Blood Pressure [Le ft Forearm] 150/79 H Blood Pressure [Ri ght Arm] Pulse Oximetry 90 96 Oxygen Delivery Me thod Nasal Cannula Nasal Cannula Nasal Cannula Oxygen Flow Rate 2 Fraction of Inspir ed Oxygen 2 2 12/09/23 03:28 12/09/23 03:28 12/09/23 07:46 Temperature 97.7 F 97.6 F Pulse Rate [Pulse Oximeter] 62 56 L Respiratory Rate 20 20 16 Blood Pressure [Le ft Forearm] Blood Pressure [Ri ght Arm] 148/62 H 175/81 H Pulse Oximetry 96 96 94 Oxygen Delivery Me thod Nasal Cannula Nasal Cannula Room Air Oxygen Flow Rate 2 2 Fraction of Inspir ed Oxygen 12/09/23 11:27 Temperature 98.0 F Pulse Rate [Pulse Oximeter] 60 Respiratory Rate 16 Blood Pressure [Le ft Forearm] Blood Pressure [Ri ght Arm] 158/64 H Pulse Oximetry 94 Oxygen Delivery Me thod Nasal Cannula Oxygen Flow Rate 0.5 Fraction of Inspir ed Oxygen Results Labs Labs: Abnormal lab results 12/08/23 12/09/23 Range/Units 22:36 11:37 Plt Count 137 L (140-440) K/uL Neut % (Auto) 85.8 H (42.0-72.0) % Lymph % (Auto) 9.0 L (20-44) % Lymph # (Auto) 0.70 L (0.90-2.90) K/uL Glucose 168 H (60-115) mg/dL AST 37 H (12-35) U/L C-Reactive Protein < 0.5 L < 0.5 L (0.5-1.0) mg/dL Diabetes panel 12/08/23 Range/Units 22:36 Sodium 136 (135-149) mmol/L Potassium 4.0 (3.6-5.1) mmol/L Chloride 102 (96-114) mmol/L Carbon Dioxide 26 (20-32) mmol/L BUN 24 (7-30) mg/dL Creatinine 1.0 (0.5-1.5) mg/dL Glucose 168 H (60-115) mg/dL Calcium 9.8 (8.4-10.6) mg/dL AST 37 H (12-35) U/L ALT 27 (4-35) U/L Alkaline Phosphatase 81 (40-150) U/L Total Protein 8.2 (6.0-8.3) g/dL Albumin 4.9 (3.3-5.0) g/dL Calcium panel 12/08/23 Range/Units 22:36 Calcium 9.8 (8.4-10.6) mg/dL Albumin 4.9 (3.3-5.0) g/dL Pituitary panel 12/08/23 Range/Units 22:36 Sodium 136 (135-149) mmol/L Potassium 4.0 (3.6-5.1) mmol/L Chloride 102 (96-114) mmol/L Carbon Dioxide 26 (20-32) mmol/L BUN 24 (7-30) mg/dL Creatinine 1.0 (0.5-1.5) mg/dL Glucose 168 H (60-115) mg/dL Calcium 9.8 (8.4-10.6) mg/dL Adrenal panel 12/08/23 Range/Units 22:36 Sodium 136 (135-149) mmol/L Potassium 4.0 (3.6-5.1) mmol/L Chloride 102 (96-114) mmol/L Carbon Dioxide 26 (20-32) mmol/L BUN 24 (7-30) mg/dL Creatinine 1.0 (0.5-1.5) mg/dL Glucose 168 H (60-115) mg/dL Calcium 9.8 (8.4-10.6) mg/dL Total Bilirubin 0.6 (0.1-1.5) mg/dL AST 37 H (12-35) U/L ALT 27 (4-35) U/L Alkaline Phosphatase 81 (40-150) U/L Total Protein 8.2 (6.0-8.3) g/dL Albumin 4.9 (3.3-5.0) g/dL All other labs normal. Progress Note:A&P Assessment and plan (1) SBO (small bowel obstruction): Status: Acute Plan 83-year-old female presents with small-bowel obstruction. I discussed with the patient and her her laboratory and imaging findings. We talked about her CT scan. Patient is clinically improving with conservative measures. I think it would be reasonable to advance her to clears and see how she does. If patient tolerates clears well by tomorrow, she can be advanced to regular diet. I discussed with the patient that she would need an outpatient colonoscopy to evaluate the focal thickening in the ascending colon.
--- NOTE | 2023-12-09 18:32 | PC.NURSE ---
End of Shift: The patient is alert and orientated, although forgetful at times. This morning the patient reported moderate pain in her abdomen with nausea. PRN morphine and zofran given. VS noted to be hypertensive.... IV scheduled metoprolol was given per parameters. The patients [place] is present in the room most of the day. IV fluids @ 75. Call light within reach. Clear liquid diet in place, the patient is tolerating this well with no issues. ZAC w/ ALESHIA and RW. Marysol MEZA BSN
[2023-12-09] MEDS: LATANOPROST 0.005% OPHTH 1 DROP EYE-RIGHT (20:35)
[2023-12-10 03:59] VITALS: BP 123/69; PULSE 60; RESP 18; O2SAT 91
[2023-12-10] MEDS: METOPROLOL TARTRATE 1 MG/ML inj 5 MG IVP ×2 (04:06→10:04)
[2023-12-10 06:19] LABS: Hematocrit 40.5 % (33.0-51.0); Hemoglobin* 13.1 gm/dL (12.0-16.0); Mean Corpuscular HGB Conc 32 gm/dL (32-36); Mean Corpuscular Hemoglobin 31 pg (26-34); Mean Corpuscular Volume 96 fL (80-100); Platelet Count* 170 K/uL (140-440); Red Blood Count 4.24 m/uL (4.00-5.20)
[2023-12-10 06:21] LABS: Slide Review Reflex No
[2023-12-10 06:38] LABS: Chloride* 106 mmol/L (96-114); Potassium* 3.5 mmol/L (3.6-5.1); Sodium* 137 mmol/L (135-149)
[2023-12-10 06:41] LABS: Creatinine* 0.7 mg/dL (0.5-1.5); Est. Creatinine Clearance* 32.73; Estimated Glomerular Filt Rate 86 ml/min
[2023-12-10 06:42] LABS: Anion Gap 3 mEq/L (7-15); Blood Urea Nitrogen* 14 mg/dL (7-30); Calcium* 8.8 mg/dL (8.4-10.6); Carbon Dioxide* 28 mmol/L (20-32); Glucose* 116 mg/dL (60-115)
--- NOTE | 2023-12-10 06:43 | PC.NURSE ---
End of shift [id number]: A&O pleasant and cooperative. VSS. Denies pain. BS active. Denies n/v. Ambulated in rios x1 with staff. Tolerating clears. Bed alarm in place. ?
[2023-12-10 07:03] LABS: C Reactive Protein* < 0.5 mg/dL (0.5-1.0)
[2023-12-10 07:30] VITALS: BP 134/104; PULSE 95; RESP 18; TEMP 37; O2SAT 95
--- NOTE | 2023-12-10 07:41 | P.IMPN_ITS ---
Progress Note: A&P Assessment and plan (1) SBO (small bowel obstruction): Problem details: -appreciate gen surg eval -no morphine or other pain meds since 10 am yesterday -clears tolerated -will advance diet -replace potassium -encourage ambulation Status: Acute (2) HTN (hypertension): Problem details: resume metoprolol; hold HCTZ Status: Acute (3) Hyperlipidemia: Problem details: resume statin Status: Acute (4) Depression: Problem details: resume celexa Status: Acute (5) Hypothyroidism: Problem details: resume levothyroxine Status: Acute Subjective Date Seen: 12/10/23 Interval history: Daily Progress Note - Hospital Medicine Day #: 2 CC: SBO OVERNIGHT UPDATES FROM STAFF & MED, LAB, IMAGING UPDATES very little pain tolerating clears passing flatus labs reviewed; normal WBC, normal CRP. K a little low Objective: Vitals: see above Lungs: Clear. Cardiac: S1S2. Disposition/Potential discharge - Likely to return to previous living situation. Today I spent 50minutes seeing the patient, reviewing Expanse and EPIC notes/diagnostics, discussing the care plan with our care time that includes social work, PT/OT, pharmacy, RT, fci and documenting my impressions and plan in the medical record. Exam Const: Vital Signs, click to edit/add: Vital Signs - 24 hr 12/09/23 07:46 12/09/23 11:27 12/09/23 15:36 Temperature 97.6 F 98.0 F 98.0 F Pulse Rate [Pulse Oximeter] 56 L 60 65 Respiratory Rate 16 16 16 Blood Pressure [Ri ght Arm] 175/81 H 158/64 H 140/66 H Pulse Oximetry 94 94 95 Oxygen Delivery Me thod Room Air Nasal Cannula Room Air Oxygen Flow Rate 0.5 12/09/23 16:00 12/09/23 20:20 12/09/23 22:20 Temperature 98.6 F Pulse Rate [Pulse Oximeter] 55 L 59 L Respiratory Rate 16 14 16 Blood Pressure [Ri ght Arm] 143/53 H 135/57 L Pulse Oximetry 93 97 93 Oxygen Delivery Me thod Room Air Room Air Room Air Oxygen Flow Rate 12/09/23 23:00 12/10/23 03:59 Temperature Pulse Rate [Pulse Oximeter] 60 Respiratory Rate 16 18 Blood Pressure [Ri ght Arm] 123/69 Pulse Oximetry 93 91 Oxygen Delivery Me thod Room Air Room Air Oxygen Flow Rate Labs Labs: Laboratory Results - last 24 hr 12/09/23 12/10/23 11:37 06:02 WBC 7.33 8.40 RBC 4.59 4.24 Hgb 14.4 13.1 Hct 44.1 40.5 MCV 96 96 MCH 31 31 MCHC 33 32 RDW Coeff of Justin 13.1 Plt Count 137 L 170 Neut % (Auto) 85.8 H Lymph % (Auto) 9.0 L [place] % (Auto) 5.0 Eos % (Auto) 0.0 Baso % (Auto) 0.1 Neut # (Auto) 6.30 Lymph # (Auto) 0.70 L [place] # (Auto) 0.40 Eos # (Auto) 0.00 Baso # (Auto) 0.01 Abs Immat Gran (auto) 0.01 Imm/Tot Granulo (auto) 0.1 INR 0.92 Sodium 137 Potassium 3.5 L Chloride 106 Carbon Dioxide 28 Anion Gap 3 L BUN 14 Creatinine 0.7 Estimated Creat Clear 32.73 Estimated GFR 86 Glucose 116 H Calcium 8.8 C-Reactive Protein < 0.5 L < 0.5 L
[2023-12-10 08:32] VITALS: RESP 18; O2SAT 95
[2023-12-10 08:33] VITALS: PULSE 95; RESP 18
[2023-12-10] MEDS: POTASSIUM BICARB 25 MEQ EFFERVESCENT TAB PO ×2 (08:45→10:00)
[2023-12-10] MEDS: oxyBUTYnin chloride 5 MG TABLET 2.5 MG PO (08:46)
[2023-12-10] MEDS: CITALOPRAM HYDROBROMIDE 20 MG TABLET PO (08:46)
[2023-12-10] MEDS: METOPROLOL TARTRATE 25 MG TABLET 12.5 MG PO (08:46)
[2023-12-10] MEDS: SODIUM CHLORIDE 0.9 % (FLUSH) 10 ML SYRINGE 5 ML IVF (08:47)
[2023-12-10] MEDS: LEVOTHYROXINE 112 MCG TABLET PO (10:00)
--- NOTE | 2023-12-10 10:06 | PM.GSPN ---
Subjective Subjective Date Seen: 12/10/23 Interval history: Patient is doing well. She denies abdominal pain. She tolerated clears yesterday and today in the morning. She is passing gas. She denies bowel movement. Exam Narrative: Exam Narrative: Abdomen is soft, not distended, minimal discomfort to palpation in the right mid abdomen, slightly improved from yesterday. No peritoneal signs. Const: Vital Signs, click to edit/add: Vital Signs - 24 hr 12/09/23 11:27 12/09/23 15:36 12/09/23 16:00 Temperature 98.0 F 98.0 F Pulse Rate [Pulse Oximeter] 60 65 Respiratory Rate 16 16 16 Blood Pressure [Ri ght Arm] 158/64 H 140/66 H Pulse Oximetry 94 95 93 Oxygen Delivery Me thod Nasal Cannula Room Air Room Air Oxygen Flow Rate 0.5 12/09/23 20:20 12/09/23 22:20 12/09/23 23:00 Temperature 98.6 F Pulse Rate [Pulse Oximeter] 55 L 59 L Respiratory Rate 14 16 16 Blood Pressure [Ri ght Arm] 143/53 H 135/57 L Pulse Oximetry 97 93 93 Oxygen Delivery Me thod Room Air Room Air Room Air Oxygen Flow Rate 12/10/23 03:59 12/10/23 07:30 12/10/23 08:32 Temperature 98.6 F Pulse Rate [Pulse Oximeter] 60 95 Respiratory Rate 18 18 18 Blood Pressure [Ri ght Arm] 123/69 134/104 H Pulse Oximetry 91 95 95 Oxygen Delivery Me thod Room Air Room Air Room Air Oxygen Flow Rate 12/10/23 08:33 Temperature Pulse Rate [Pulse Oximeter] 95 Respiratory Rate 18 Blood Pressure [Ri ght Arm] Pulse Oximetry Oxygen Delivery Me thod Oxygen Flow Rate Progress Note:A&P Assessment and plan (1) SBO (small bowel obstruction): Status: Acute Plan 83-year-old female admitted to the hospital with small-bowel obstruction that is improving with conservative management. Patient is doing well. We can advance her to regular diet. If patient continues to tolerate diet, possible discharge later today. Patient will need an outpatient colonoscopy.
[2023-12-10 11:12] VITALS: BP 132/66; PULSE 53; RESP 16; TEMP 37.6; O2SAT 92
--- NOTE | 2023-12-10 12:52 | PC.NURSE ---
Discharge: Patient pleasant and cooperative, A&O. VSS, afebrile. SpO2 maintained above 90% on RA. Patient denies pain this shift. Tolerated toast and eggs well this morning. IV removed with tip intact. Discharge instructions provided to patient and her . Discharged to home.
--- NOTE | 2023-12-10 13:17 | P.DS_ITS ---
DS: Providers Provider Date Seen: 12/10/23 Date of admission: 12/09/23 05:31 Primary care physician: Angel Luis Khan MD Admitting Clinician: Last Malik MD Consults: 12/09/23 05:31 Consult to Physician [CONS] Routine Comment: general surgery for partial sbo Consulting Provider: [facility], [facility] Has provider been notified: No 12/09/23 08:26 Consult to Occupational Therapy [CONS] Routine Comment: Reason(s) for OT Consult:: Evaluate and Treat Any Restrictions?:: No Restrictions Consult to Physical Therapy [CONS] Routine Comment: Reason(s) for PT Consult:: Evaluate Ambulation Any Restrictions?:: See Comment Comment: Recently weaker and needing stand by assistance for ambulation Attending Physician on discharge: Dhara Gregory MD [facility] Date of Discharge: 12/10/23 DS: Diagnosis Discharge Diagnosis (1) SBO (small bowel obstruction): Status: Acute Problem details: -considerable improvement overnight. tolerated a regular breakfast; ambulating; no pain, passing flatus, asking for discharge. (2) HTN (hypertension): Status: Acute Problem details: resume metoprolol; continue HCTZ at discharge (3) Coronary artery disease: Status: Acute Problem details: Stress test in 2015: Negative for ischemia Coronary CTA 07/2007 - showed extensive plaques but not critical stenosis Coronary Anatomy: (Right Dominant) Left Main: No stenosis, no plaque. Left Anterior Descending: Mild stenosis with calcific and non-calcific plaque. First Diagonal: Mild stenosis, calcific plaque. Circumflex: Mild stenosis, calcific plaque. First Obtuse Marginal: Mild stenosis, calcific plaque. Right Coronary Artery: Mild to moderate stenosis with calcific plaque. Posterior Descending Artery: No stenosis, no plaque. Impression 1. No severe stenosis noted. 2. Extensive calcific and non-calcific plaque. (4) Hyperlipidemia: Status: Acute Problem details: resume statin (5) Depression: Status: Acute Problem details: resume celexa (6) Hypothyroidism: Status: Acute Problem details: resume levothyroxine DS: Summary Hospital Course Hospital Course: FINAL DIAGNOSIS/FOLLOW UP ISSUES: 1. Small-bowel obstruction verses ileus. Improved with conservative care and without NG or Gastrografin or surgical intervention. 2. CT evidence of focal thickening in the ascending colon, outpatient colonoscopy recommended. BRIEF HOSPITAL COURSE: Patient was admitted for 2 days. Synopsis of acute inpatient issues are outlined above. Chronic medical conditions with notable findings outlined above. Initially Talya was NPO and IV fluids. Her pain resolved quickly after admission. She was advanced to clears yesterday and tolerated a regular diet today. She is ambulating without pain. She is passing flatus. She feels much better. Discharging on 12/10/2023 DISCHARGE MEDICATIONS: See Reconciled list - SIGNIFICANT CHANGES: No new change Specific instructions to the patient and follow-up are outlined below. REVIEW OF SYSTEMS No new chest pain or dyspnea Pain controlled No voiding difficulties Tolerating diet challenge PHYSICAL EXAM: CONSTITUTIONAL: Alert, oriented. Much different/improved than yesterday. VITAL SIGNS: see record. HEENT: Normocephalic, atraumatic. PERRL, EOMI, conjunctivae pink, no scleral icterus. Ears and nose externally normal. Pharynx normal. NECK: No JVD. No carotid bruit, no thyromegaly, no adenopathy. CHEST: Clear to auscultation bilaterally. HEART: S1 and S2 normal. Edema ABDOMEN: Soft, nontender. Normal bowel sounds. MUSCULOSKELETAL: No gross joint deformity or swelling. NEURO: Cranial nerves intact. Grossly intact. No asymmetric findings. SKIN: No rashes, petechiae, concerning changes PSYCHIATRIC: Mood euthymic. DISPOSITION: Home with Time spent on discharge 37 minutes. Status at Discharge Functional status at discharge: independent ambulation Overall status at discharge: patient is progressing back to baseline Time Spent with Patient Time attestation: Total time spent providing and/or coordinating discharge services: Exam Const: Vital Signs, click to edit/add: Vital Signs - 24 hr 12/09/23 15:36 12/09/23 16:00 12/09/23 20:20 Temperature 98.0 F 98.6 F Pulse Rate [Pulse Oximeter] 65 55 L Respiratory Rate 16 16 14 Blood Pressure [Ri ght Arm] 140/66 H 143/53 H Pulse Oximetry 95 93 97 Oxygen Delivery Me thod Room Air Room Air Room Air 12/09/23 22:20 12/09/23 23:00 12/10/23 03:59 Temperature Pulse Rate [Pulse Oximeter] 59 L 60 Respiratory Rate 16 16 18 Blood Pressure [Ri ght Arm] 135/57 L 123/69 Pulse Oximetry 93 93 91 Oxygen Delivery Me thod Room Air Room Air Room Air 12/10/23 07:30 12/10/23 08:32 12/10/23 08:33 Temperature 98.6 F Pulse Rate [Pulse Oximeter] 95 95 Respiratory Rate 18 18 18 Blood Pressure [Pa ght Arm] 134/104 H Pulse Oximetry 95 95 Oxygen Delivery Me thod Room Air Room Air 12/10/23 11:12 Temperature 99.6 F Pulse Rate [Pulse Oximeter] 53 L Respiratory Rate 16 Blood [facility] 132/66 Pulse Oximetry 92 Oxygen Delivery Me thod Room Air DS: Data Data Completed and Pending Labs on day of discharge: Labs from last 24 hours 12/10/23 06:02 WBC 8.40 RBC 4.24 Hgb 13.1 Hct 40.5 MCV 96 MCH 31 MCHC 32 Plt Count 170 Sodium 137 Potassium 3.5 L Chloride 106 Carbon Dioxide 28 Anion Gap 3 L BUN 14 Creatinine 0.7 Estimated Creat Clear 32.73 Estimated GFR 86 Glucose 116 H Calcium 8.8 C-Reactive Protein < 0.5 L Preliminary micro results at discharge 12/08/23 22:29 Urine Culture - Preliminary Urine,Clean Catch No growth. Discharge Plan Discharge Disposition: Home, Self-Care Date of Admission: 12/09/23 05:31 Attending Provider on Discharge: Dhara Gregory Primary Care Provider: Angel Luis Khan Condition: Improved Anticipated Discharge Date/Time: 12/10/23 11:57 Discharge Medications: Continued multivitamin [Multiple Vitamins] Tablet 1 tab PO DAILY atorvastatin 20 mg tablet 20 mg PO DAILY citalopram 20 mg tablet 20 mg PO DAILY hydrochlorothiazide 25 mg tablet 25 mg PO DAILY latanoprost 0.005 % drops 1 drp ophthalmic (eye) HS Patient Comments: PLACE 1 DROP INTO THE RIGHT EYE ONCE DAILY AT BEDTIME levothyroxine 112 mcg tablet 112 mcg PO DAILY metoprolol tartrate 25 mg tablet 12.5 mg PO BID pramipexole 0.25 mg tablet 0.125 mg PO HS oxybutynin chloride 5 mg tablet 2.5 mg PO BID Discharge Orders: Discharge Order (Routine); Ordered 12/10/23 Ordered By: Dhara Gregory Patient Education: Bowel Obstruction (DC) Activity Level: Activity as Tolerated Discharge Diet: Regular Diet Detail: go slow on diet. Eat like you are getting over the flu. soups, crackers, toast, applesauce, rice, etc. Follow Up Appointments: Angel Luis Khan MD [Primary Care Provider] - 12/24/23 11:45 am ([email or web address] for post hospitalization for SBO.) Forms: [employer] Info Instructions
== END 2023-12-10 12:45 | disposition home or self-care (01) | DRG 390 ==
LOC: ED 12-09 01:43 → MEDSURG 12-09 03:10
PROVIDERS: Family Medicine; Admitting Provider Internal Medicine; Emergency Provider Family Medicine; PCP Family Medicine; Visit Provider Internal Medicine
DX: K56.609 Unspecified intestinal obstruction, unspecified as to partial versus complete obstruction (principal); I10 Essential (primary) hypertension; R73.01 Impaired fasting glucose; G25.81 Restless legs syndrome; F43.21 Adjustment disorder with depressed mood; E03.9 Hypothyroidism, unspecified; E78.2 Mixed hyperlipidemia; I25.10 Atherosclerotic heart disease of native coronary artery without angina pectoris
CPT/HCPCS: 36415; 74177; 80048; 80076; 81001; 83605; 83690; 85025; 85027; 85610; 86140; 87086; 97161; 97165; 99284; 99285; A9270; J1170; J2270; J2405; J2550; J7030; Q9967

== ENCOUNTER 2024-01-05 09:36 | Day surgery (SDC) | payer MEDICARE, BC, SELFPAY ==
[2024-01-05] VITALS (25 sets, daily range): BP systolic 128–190; BP diastolic 65–101; PULSE 45–71; RESP 12–20; TEMP 36–36.7; O2SAT 93–100; BMI 32.7
[2024-01-05] MEDS: CELECOXIB 200 MG CAPSULE PO (09:26)
--- OUTSIDE RECORDS SUMMARY | 2024-01-05 09:40 | XMS_ITS | Clinical Summary ---
Author Organization [facility] Address [place], [place] [address] Care Team Providers Care Thread Marker Name Role Phone Angel Luis Khan MD [...] 07/26/2007 10/28/2015 Unspecified hypothyroidism 05/19/2007 0 10/28/2015 Encounters Date Type Department Care Team Description 12/17/2023 1:15 PM CDT Office Visit [facility] [address] [place], [place] [id number] Angel Luis Khan MD Preoperative Exam (DOS: 01/03/2024, left knee replacement, Dr. Reaves, [facility]); Hospital F/U ([facility], 12/08/2023 - 12/10/2023, abdominal pain) 12/17/2023 Travel 12/08/2023 Orders Only [facility] Scanner 1 scan: (1-Ord) [facility], CT ABDOMEN PELVIS W CON, 12/08/2023 12/08/2023 Orders Only [facility] Scanner 1 scan: (1-Ord) [facility], CT ABDOMEN PELVIS W CON, 12/08/2023 from Last 3 Months Immunizations Name Administration Dates Next Due AMB INFLUENZA IIV3 (AGE 65+ YRS) PF (Flu Clinic Only) 02/18/2017 AMB Influenza, IIV3 (Age >=3 years)(Flu Clinic Only) 02/21/2013,04/08/2010,02/25/2009,04/03 Amb Influenza, Inact (High-d ose) (Flu Clinic Only) 03/03/2016,02/20/2014 Amb Influenza, Inactivated A IIV4 (Age 65+ Years) Preserv Free 02/06/2020 COVID-19 Vaccine Spikevax (M oderna 50mcg/0.5mL) 12YO+ [id number] Formula PF 08/19/2023,03/10/2023 COVID-19 vaccine (Pfizer-Bio NTech 30mcg/0.3mL) 12YO+ BIVALENT PF, MDV 09/15/2022,02/18/2022 COVID-19 vaccine (Pfizer-Bio NTech 30mcg/0.3mL) 12YO+ DURAN-SUCROSE PF, MDV 09/17/2021 COVID-19 vaccine (Pfizer-Bio NTech 30mcg/0.3mL) PF, MDV 04/07/2021 HepA-HepB (Twinrix) [...] of Communication with Friends and Fami ly 0 12/17/2023 Financial Resource Strain Answer Date R ecorded Difficulty of Paying Living Expenses 3 12/17/2023 Difficulty of Paying Living Expenses Not on file 12/17/2023 Food Insecurity Answer Date Recorded Worried About Running Out of Food in the Last Ye ar 1 12/17/2023 Transportation Needs Answer Date Record ed Lack of Transportation (Medical) 1 12/17/2023 Housing Stability Answer Date Recorded Unable to Pay for Housing in the Last Year 1 12/17/2023 Sex and Gender Information Value Date Recorded [...] Sign Reading Time Taken Comments Blood Pressure 126/70 12/17/2023 1:21 PM CDT Pulse 72 12/17/2023 1:21 PM CDT Temperature 36.8 ??C (98.2 ??F) 05/06/2021 2:07 PM CS T Respiratory Rate 16 03/16/2016 3:01 PM CDT Oxygen Saturation 99% 12/17/2023 1:21 PM CDT Inhaled Oxygen Concentration - - Weight 75.8 kg (167 lb 3.2 oz) 12/17/2023 1:21 P M CDT Height 154.2 cm (5' 0.71) 12/17/2023 1:21 PM CD T Body Mass Index 31.9 12/17/2023 1:21 PM CDT Plan of Treatment Health Maintenance Due Date Last Done Comments Influenza for age 65+ 01/23/2024 03/10/2023 , 03/06/2022, 02/19/2021, Additional history exists Medicare Wellness for age 65+ 05/10/2024, 05/08/2022, 04/07/2021, Additional history exists Depression screening for age 12+ 05/13/2024 05/13/2023, 05/10/2023, 05/10/2023, Additional history exists BMI (ht and wt on same day) for age 18+ 12/16/2024 12/17/2023, 05/10/2023, 05/08/2022, Additional history exists Tetanus booster 03/24/2032 03/24/2022, 0 08/2011, 06/17/2006 Zoster (shingles) series for age 50+ Completed 07/21/2018, 05/18/2018, 05/31/2008 Tdap Completed 03/24/2022, 0 08/2011, 06/17/2006 Pneumococcal series for age 65+ Completed 05/08/2022, 10/31/2014, 09/25/2011 DEXA/DXA scan for age 65+ Completed 2022, 02/07/2019, 10/26/2013, Additional history exists COVID-19 vaccine series Completed 08/19/19 24, 03/10/2023, 09/15/2022, Additional history exists Procedures Procedure Name Priority Date/Time Associated Diagnosis Comments PA READING EKG - NO CHARGE, COMP ONLY Routine 12/23/2023 11:34 AM CDT Screening for heart disease EKG 12 LEAD Routine 12/23/2023 11:34 AM CDT Screening for heart disease HEMOGLOBIN A1C Routine 12/17/2023 2:10 PM CDT Type 2 diabetes mellitus without complication, without long-term current use of insulin (HC) SCAN-CT INTERPRETATION 4 12:00 AM CDT SCAN-CT INTERPRETATION 12:00 AM CDT XR DXA BONE DENSITY 2 SITES AXIAL Routine 05/13/2023 9:23 AM HAND PICKER Asymptomatic postmenopausal state from Last 3 Months or Most Recently Relevant to Health Maintenance Results * EKG 12 LEAD (12/23/2023 11:34 AM CDT) Angel Luis Khan MD EKG ORD * PA READING EKG - NO CHARGE, COMP ONLY (12/23/2023 11:34 AM CDT) Angel Luis Khan MD PB - PROVIDER READINGS * (ABNORMAL) HEMOGLOBIN A1C MONITORING (POCT) (12/17/2023 2:10 PM CDT) HEMOGLOBIN A1C MONITORING (POCT) 6.7(H) <=6.4 % 12/17/2023 2:20 PM CDT [facility] Blood BLOOD SPECIMEN / Unknown Venipuncture / Unknown 12/17/2023 2:10 PM CDT 12/17/2023 2:10 PM CDT Narrative [facility] - 12/17/2023 2:20 PM CDT ? (<=6.9%) ? Indicates good control ? (7.0% to 7.9%) ? Indicates fair control ? (>=8.0%) ? Indicates poor control ?? NOTE: ??These thresholds are guidelines and ?individual targets may vary. Falsely low levels may be seen with: Recent Transfusion, Recent Significant Blood Loss, Hemolytic Diseases, or Falsely elevated levels may be seen with: Untreated Anemias, Splenectomy ? Angel Luis Khan MD CHEMISTRY [facility] [address] [place] [address], * SCAN-CT INTERPRETATION (12/08/2023 12:00 AM CDT) Only the most recent of2 resultswithin the time period is included. Anatomical Region Laterality Modality Other Scanner OTHER * (ABNORMAL) XR DXA BONE DENSITY 2 SITES AXIAL (05/13/2023 9:23 AM HAND PICKER) Anatomical Region Laterality Modality Spine, HIPS, HIPL, HIPR Other Impressions 05/18/2023 1:39 PM HAND PICKER Osteopenia. RECOMMENDATIONS: The National Osteoporosis Foundation recommends [...] to assess therapeutic efficacy. May Jeff PA-C [facility] 05/18/2023 Narrative 05/18/2023 1:39 PM HAND PICKER For Patients: Results are automatically released to your [employer] ([employer]) account once available, in compliance with federal regulations. This means that you may see your results before your provider has had a chance to review them. Please allow 2-3 business days for your provider to comment on the results. XR DXA Bone Mineral Density (BMD) EXAM LOCATION: [address] [address] PATIENT NAME: Talya Coon DATE OF : [...] two scanners are made by the same genetics nurse. PROCEDURE: Dual-energy x-ray absorptiometry performed with routine [...] Recently Relevant to Health Maintenance Care Teams Thread Marker Relationship Specialty Start Date End Date Angel Luis Khan MD [address] [place] [address] PCP - General 06/17/06
--- NOTE | 2024-01-05 09:45 | P.ORPRC_ITS ---
Procedure Note Date of procedure: 01/05/24 Procedure: PREOPERATIVE DIAGNOSIS: 1. Left knee osteoarthritis POSTOPERATIVE DIAGNOSES: 1. Left knee osteoarthritis PROCEDURE: 1. Left total knee arthroplasty SURGEON: Aaron Gregory MD GROUNDS AND NURSERY SPECIALIST: Carine Malik P.A.-C. An recruiting assistant was critical for this case to aide in patient positioning, instrument positioning, and wound closure. ANESTHESIA: General with femoral and genicular nerve blocks IMPLANTS: DePuy Attune femoral posterior stabilized component size 5N; DePuy Attune tibial base size 4; DePuy Attune tibial insert rotating platform posterior stabilized polyethylene size 5, 7 mm; and an Attune patella medialized dome size 35 mm. EBL: 100 ml COMPLICATIONS: None evident TOURNIQUET TIME: 86 minutes at 250 mmHg INDICATIONS: Talya is a 83-year-old female who has chronic left knee pain secondary to osteoarthritis. Symptoms have worsened despite non operative treatment. Patient is now interested in proceeding with total knee arthroplasty for improved function, decreased pain and better quality of life. Prior to the procedure, risks and benefits of the operative and non operative treatment were discussed with the patient. After discussion of risks, benefits, and alternatives of surgery, informed consent was obtained and the operative site was marked. FINDINGS: Tricompartmental osteoarthritis with grade 4 chondral changes in the lateral compartment PROCEDURE: Patient was seen preoperatively and operative site was marked. Regional nerve blocks were performed by anesthesia staff. Patient was then brought to the operating room, where general anesthesia was administered by the anesthesia staff. Patient was then placed into the supine position on the OR table and all bony prominences were well padded. Preoperative prophylactic antibiotics and TXA were administered. A tourniquet was placed on the thigh of the operative leg. The left lower extremity was prepped and draped in usual sterile fashion. A surgical time-out was performed confirming patient identity, surgical procedure, and surgical site. Operative extremity was elevated and exsanguinated with an Esmarch and tourniquet was inflated to 250 mmHg. The tourniquet remained inflated for 86 minutes before it was deflated. An anterior longitudinal incision was made and carried down through the subcutaneous tissues. The quadriceps tendon, medial patellar retinaculum, and patellar tendon were visualized. A medial quadriceps splitting parapatellar arthrotomy was performed. The proximal medial tibia was subperiosteal exposed distal to the joint line. The retropatellar fat pad was excised. The knee was flexed and patella everted. A curved osteotome was used to enter the semimembranous bursa medially at the level of the joint line. Medial and lateral tibial plateau osteophytes were removed with a rongeur. The medial meniscus was excised at the meniscal synovial junction. The anterior cruciate ligament was excised. A Z-retractor was placed medially and a right angle Hohmann retractor was placed anterior lateral to the lateral meniscus. A partial lateral meniscectomy was performed. The intramedullary drill was utilized to open the intramedullary canal. ?Intramedullary alignment guide was inserted. The distal femoral cutting block, set at 5 degrees of valgus with a distal femoral resection of 9 mm, was secured with pins, and the distal femoral osteotomy was performed. ?Using the posterior condylar referencing guide, femur was sized to a size 5, and pins were drilled for 3 degrees of external rotation, which corresponded with Whitesides line and the epicondylar axis. ?A 4-in-1 cutting jig was inserted at 3 degrees of external rotation. ?The anterior and posterior condylar cuts were performed followed by anterior and posterior chamfer cuts. The box cutting guide was then secured to the distal femur with pins and the box osteotomy was performed. ? ? We then turned our attention back to the tibia. ?Ranasall maneuver was performed and remainder of the lateral meniscus, medial meniscus, and PCL were excised. ?A retractor was placed along the posterior tibia. ?Extramedullary guide was secured around the ankle in line with the subcutaneous tibial crest. ?The tibial cutting block, set to remove 6 mm of bone from medial tibial plateau and 8 mm of bone from lateral tibial plateau, was secured proximally with pins. ?Tibial osteotomy was performed with care taken to protect the collateral ligaments. ?Spacer blocks were inserted, and the knee was noted to be tight in extension. Therefore, the intramedullary distal femoral cutting guide was reinserted and set to remove an additional 2 mm of bone from the distal femur. The 4 in 1 cutting jig was then used to we cut the anterior-posterior condylar cuts and anterior-posterior chamfer cuts. The box cutting guide was then secured to recut the box osteotomy. Spacer blocks were again inserted and knee was noted to have symmetric flexion and extension gaps.?The tibia was then sized to a size for, and tibial base plate was secured. Tibia was then prepped with the appropriate drill and punch. Trial femur and tibial components with a 6 mm mm tibial polyethylene component were inserted. The knee was then brought out to full extension. ?The patella was everted and osteochondral junction was exposed. ?The patella measured 21 mm in thickness. ?The patellar osteotomy was performed, leaving 14 mm of remnant patella. ?Three lug holes were drilled for the 35 mm patella button and the patella button was inserted. The knee was brought through a full range of motion. ?Soft tissue tension, collateral ligament stability, and patella tracking were confirmed to be satisfactory. ?Trial components were then removed. The exposed bony surfaces of the tibia, femur, and patella were then thoroughly irrigated with pulse lavage and dried. ? Cement was mixed on the back table and was subsequently introduced onto the tibia and tibial base plate. ?Tibial base plate was then impacted into position, and extruded cement was removed. ?Cement was then applied to the distal femur and posterior condyles of the femoral prosthesis. ?The femoral prosthesis was impacted into position, extruded cement was removed, and a trial polyethylene was inserted. ?Knee was then brought out to full extension for remainder of drying. ?Cement was then applied to the patella and patellar button. The patella button was clamped into position, and extruded cement was removed. ?While the cement was drying, knee was soaked in a sterile iodine solution. ? After the cement had dried, the knee was flexed and the trial tibial component was removed. The tourniquet was released . The soft tissues were then irrigated with pulse lavaged and hemostasis was achieved with electrocautery. The knee was trialed with 6 mm poly and a 7 mm poly and better stability was no kimmy with the 7 mm trial polyethylene component. A formal size 5, 7 mm rotating platform posterior stabilized polyethylene was then secured into position. ? The parapatellar arthrotomy was closed with #1 Vicryl [id number] interrupted sutures followed by a running #1 Stratafix suture. ?Subcutaneous soft tissues were again irrigated normal saline. Skin was closed with 2-0 Vicryl inverted, interrupted, subcutaneous stitches followed by running 3-0 Stratafix and 4-0 Monocryl subcuticular stitches. ?The incision was then sealed with Exofin glue and sterile dressing was applied. ?The patient was then transferred to the recovery room in stable condition. POSTOPERATIVE PLAN: 1. Patient will be admitted to the hospital, where she will follow the postoperative total knee arthroplasty protocol. 2. Mobilize with physical therapy and occupational therapy. - Weight bear as tolerated left lower extremity. 3. Pain control: - Acetaminophen and Oxycodone for pain as needed. -IV pain medications for breakthrough pain -Ice for pain and swelling 4. Postoperative prophylactic antibiotics x2 doses 5. DVT prophylaxis: - aspirin 81 mg b.i.d. for 35 days - SCDs 6. Follow-up in Orthopedic Clinic in 1-2 weeks.
--- NOTE | 2024-01-05 09:45 | W.PM.H&PU ---
History & Physical Update History & Physical Update H&P Reviewed and patient assessed: No changes noted
--- NOTE | 2024-01-05 09:58 | W.ANESCHARGE ---
Anesthesia Charges Start Date/Time Anesthesia Start Date: 01/05/24 Anesthesia Start Time: 11:04 Stop Date/Time Anesthesia Stop Date: 01/05/24 Anesthesia Stop Time: 14:32 Summary Extremes of Age - Over 70 or under 1: MDA
--- NOTE | 2024-01-05 09:58 | W.PM.NB ---
Nerve Block Nerve Block Time Seen by Provider: 10:58 Date Seen: 01/05/24 Type of block requested by surgeon for post-operative analgesia: adductor canal Side: left Time out performed: Yes Verification of patient name: Yes Verification of date of : Yes Site marking: site marked Name of person performing procedure: Lloyd Continuous monitoring Was continuous monitoring of O2 sat, B/P, air sampling and monitoring, recorded every 15 minutes?: Yes Procedure Checklist: sterile prep, needles and gloves Ultrasound guided. Images saved: Yes Medications given in 5ml increments after negative aspiration: Ropivicaine %: 0.5 mL: 20 Needle gauge: 20 Decadron (mg): 10 Precedex (mcg): 25 Patient tolerated procedure well: Yes Additional comments: Needle noted adjacent to nerve Block Charges Block Charge (with Pro Fee): Femoral Nerve Use of Ultrasound Machine for Block: Yes- US Guidance/pain block
--- NOTE | 2024-01-05 09:59 | P.NB_ITS ---
Nerve Block Nerve Block Time Seen by Provider: 10:58 Date Seen: 01/05/24 Type of block requested by surgeon for post-operative analgesia: geniculars Side: left Time out performed: Yes Verification of patient name: Yes Verification of date of : Yes Site marking: site marked Name of person performing procedure: Lloyd Continuous monitoring Was continuous monitoring of O2 sat, B/P, playground monitor, recorded every 15 minutes?: Yes Procedure Checklist: sterile prep, needles and gloves Medications given in 5ml increments after negative aspiration: Ropivicaine %: 0.5 mL: 9 Needle gauge: 25 Patient tolerated procedure well: Yes Block Charges Block Charge (with Pro Fee): Genicular Nerve Block Use of Ultrasound Machine for Block: No
[2024-01-05] MEDS: LACTATED RINGERS 1000 ML 1,000 ML 100 ML IV ×2 (10:18→11:44)
[2024-01-05] MEDS: SODIUM CHLORIDE 0.9 % (FLUSH) 10 ML SYRINGE IVF (10:18)
[2024-01-05] MEDS: fentaNYL 100 MCG/2 ML inj IVP (10:55)
[2024-01-05] MEDS: MIDAZOLAM HCL 1 MG/ML inj IVP (10:55)
--- NOTE | 2024-01-05 11:02 | SUR.PREOP ---
TIME?OUT:?1053 PT/RN/MDA?VERIFICATION?OF?SURGICAL?SITE Left Knee,?PROCEDURE Nerve Block,?AND?CONSENT OBTAINED?PRIOR?TO?INVASIVE?PROCEDURE.
[2024-01-05] MEDS: CEFAZOLIN 2 GM INJ IVP (11:20)
[2024-01-05] MEDS: TRANEXAMIC ACID 100 MG/ML INJ 1000 MG IV (11:22)
--- NOTE | 2024-01-05 13:43 | CRLHL7_ITS ---
For Patients: As a result of the Cures Act, medical imaging exams and procedure reports are released immediately into your electronic medical record. You may view this report before your referring provider. If you have questions, please contact your health care provider. INDICATION: Total knee arthroplasty. TECHNIQUE: Two view LEFT knee portable. IMPRESSION : Prosthetic components intact. Patellar resurfacing. Anatomic alignment. No acute osseous lesions. Dictated by Noé Ni MD @ 01/06/2024 5:23:44 PM (Electronically Signed)
--- NOTE | 2024-01-05 14:41 | P.ANES_ITS ---
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
--- NOTE | 2024-01-05 14:53 | PM.IMCN1 ---
Date of Consult Consult date: 01/05/24 Requesting Physician: Orthopedics Primary Care Provider: Angel Luis Khan MD Consult Narrative Reason for consult: Medical management of comorbidities Narrative: Talya Coon is a 83 year old female who presented to the hospital today for an elective L TKA. There were no surgical or anesthetic complications noted during procedure. Patient's H&P reviewed, PCP is Dr. Khan at the [facility]. Past medical history significant for: DM2 (diet controlled, last A1C 6.7), essential HTN, hypothyroidism. Remote history of self-resolved atrial fibrillation after a surgery in 2007, did not recur. Never anticoagulated History of blood clots: No Postoperative plan: Home with . [facility] Medical History (Updated 01/05/24 @ 14:57 by Malinda Navarro MD) Non-insulin dependent diabetes mellitus Peptic ulcer disease ?K27.9 - Peptic ulcer, site unspecified, unspecified as acute or chronic, without hemorrhage or perforation (ICD-10) Osteopenia ?M85.80 - Other specified disorders of bone density and structure, unspecified site (ICD-10) Diverticulosis ?K57.90 - Diverticulosis of intestine, part unspecified, without perforation or abscess without bleeding (ICD-10) Atrial fibrillation ?I48.91 - Unspecified atrial fibrillation (ICD-10) Hypothyroidism ?E03.9 - Hypothyroidism, unspecified (ICD-10) Depression ?F32.A - Depression, unspecified (ICD-10) HTN (hypertension) ?I10 - Essential (primary) hypertension (ICD-10) [place] Sachs deformity, 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.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 - Other specified acquired deformities of left upper arm (ICD-10) Anterior shoulder dislocation (04/11/22) ?S43.016A - Anterior dislocation of unspecified humerus, initial encounter (ICD-10) Bankart lesion of left shoulder ?S43.492A - Other sprain of left shoulder joint, initial encounter (ICD-10) Rotator cuff tear, left ?M75.102 - Unspecified rotator cuff tear or rupture of left shoulder, not specified as traumatic (ICD-10) Tendinopathy of left biceps ?M67.922 - Unspecified disorder of synovium and tendon, left upper arm (ICD-10) Osteoarthritis of left knee ?M17.12 - Unilateral primary osteoarthritis, left knee (ICD-10) Restless legs ?G25.81 - Restless legs syndrome (ICD-10) Urinary incontinence ?R32 - Unspecified urinary incontinence (ICD-10) Adjustment disorder with depressed mood ?F43.21 - Adjustment disorder with depressed mood (ICD-10) Acquired hypothyroidism ?E03.9 - Hypothyroidism, unspecified (ICD-10) Impaired fasting glucose ?R73.01 - Impaired fasting glucose (ICD-10) Mixed hyperlipidemia ?E78.2 - Mixed hyperlipidemia (ICD-10) Essential hypertension ?I10 - Essential (primary) hypertension (ICD-10) Coronary artery disease ?I25.10 - Atherosclerotic heart disease of [place] coronary artery without angina pectoris (ICD-10) Surgical History (Updated 01/05/24 @ 14:56 by Malinda Navarro MD) Status post left knee replacement ?Z96.652 - Presence of left artificial knee joint (ICD-10) Status post Sherrill fundoplication (without gastrostomy tube) procedure ?Z98.890 - Other specified postprocedural states (ICD-10) Status post trigger finger release (03/31/23) ?Z98.890 - Other specified postprocedural states (ICD-10) History of open reduction and internal fixation (ORIF) procedure (03/31/23) ?Z98.890 - Other specified postprocedural states (ICD-10) History of phacoemulsification of cataract of left eye with intraocular lens implantation (10/10/08) ?Z98.42 - Cataract extraction status, left eye (ICD-10) ?Z96.1 - Presence of intraocular lens (ICD-10) History of YAG laser capsulotomy of lens of right eye (11/21/08) ?Z98.41 - Cataract extraction status, right eye (ICD-10) History of bladder surgery ?Z98.890 - Other specified postprocedural states (ICD-10) History of bunionectomy of both great toes ?Z98.890 - Other specified postprocedural states (ICD-10) History of hysterectomy (1992) ?Z90.710 - Acquired absence of both cervix and uterus (ICD-10) History of colectomy (~2007) ?Z90.49 - Acquired absence of other specified parts of digestive tract (ICD-10) H/O repair of right rotator cuff (~2013) ?Z98.890 - Other specified postprocedural states (ICD-10) 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) ?Z96.651 - Presence of right artificial knee joint (ICD-10) Social History (Updated 01/05/24 @ 15:44 by Malinda Navarro MD) Narrative: 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 What is your current living situation?: I presently have a place to live Problems where you live: no known problems Problems where you live details: NA In the past 12 months, utilities in danger of being shut off: no In past 12 months, lack of transportation kept you from medical appts, meetings, work, or getting things needed for daily living: no In the past 12 mos, have been you worried that your food would run out before you had money to buy more?: never true In the past 12 mos, the food you bought just didn't last and you didn't have money to buy more?: never true Smoking Status: Never smoker Do you use any of these nicotine containing products: None Second hand tobacco smoke exposure: No How often do you have a drink containing alcohol: never How many standard drinks containing alcohol do you have on a typical day: 1 or 2 How often do you have six or more drinks on one occasion: Daily or almost daily AUDIT-C Alcohol total score: 4 Non-prescribed substance use: denies use Caffeine: No How often does anyone, including family, friends and others, physically hurt you: never How often does anyone, including family, friends and others, insult or talk down to you: never How often does anyone, including family, friends and others, threaten you with harm: never How often does anyone, including family, friends and others, scream or curse at you: never Meds Home Medications and Allergies Home Medications ?Medication ?Instructions ?Recorded ?Confirmed ?Type atorvastatin 20 mg tablet 20 mg PO DAILY 03/30/23 01/05/24 History citalopram 20 mg tablet 20 mg PO DAILY 03/30/23 01/05/24 History hydrochlorothiazide 25 mg tablet 25 mg PO DAILY 03/30/23 01/05/24 History latanoprost 0.005 % eye drops 1 drp ophthalmic (eye) HS 03/30/23 01/05/24 History levothyroxine 112 mcg tablet 112 mcg PO DAILY 03/30/23 01/05/24 History metoprolol tartrate 25 mg tablet 12.5 mg PO BID 03/30/23 01/05/24 History multivitamin (Multiple Vitamins 1 tab PO DAILY 03/30/23 01/05/24 History tablet) pramipexole 0.25 mg tablet 0.125 mg PO HS 03/30/23 01/05/24 History oxybutynin chloride 5 mg tablet 2.5 mg PO BID 12/09/23 01/05/24 History Allergies Allergy/AdvReac Type Severity Reaction Status Date / Time hydrocodone Allergy Mild Hives Verified 01/05/24 09:49 [From Panlor (hydrocodone-acetamin)] tramadol Allergy Mild Hives Verified 01/05/24 09:49 diltiazem [From Cardizem] AdvReac Mild Verified 01/05/24 09:49 lisinopril AdvReac Mild Cough Verified 01/05/24 09:49 Exam Narrative: Exam Narrative: GEN: Alert and comfortable in bed, nontoxic HEENT: EOMIs bilaterally, no scleral icterus CV: Sinus bradycardia, no concerning murmurs R: LCTA bilaterally without concerning wheezing Skin: No concerning skin lesions or rashes on exposed skin Neuro: Nonfocal Psych: Appropriate Const: Vital Signs, click to edit/add: Vital Signs - 24 hr 01/05/24 09:51 01/05/24 10:55 01/05/24 11:00 Temperature 98.1 F Pulse Rate 59 L 49 L 52 L Respiratory Rate 16 16 16 Blood Pressure 128/101 H 190/98 H 187/88 H Pulse Oximetry 98 99 99 Oxygen Delivery Me thod Room Air Nasal Cannula Nasal Cannula Oxygen Flow Rate 2 2 01/05/24 14:27 01/05/24 14:35 01/05/24 14:40 Temperature 97.5 F L Pulse Rate 47 L 46 L 47 L Respiratory Rate 16 18 18 Blood Pressure 162/70 H 155/68 H 154/68 H Pulse Oximetry 96 94 93 Oxygen Delivery Me thod Room Air Room Air Room Air Oxygen Flow Rate 01/05/24 14:45 01/05/24 14:50 Temperature 97.4 F L Pulse Rate 45 L 47 L Respiratory Rate 18 16 Blood Pressure 158/65 H 158/67 H Pulse Oximetry 93 94 Oxygen Delivery Me thod Room Air Room Air Oxygen Flow Rate Assessment and Plan Assessment and plan (1) Status post left knee replacement: Problem comment: - 01/05/24Colt Status: Acute (2) Non-insulin dependent diabetes mellitus: Problem comment: - A1C of 6.28 November 2023 Status: Acute (3) HTN (hypertension): Status: Acute (4) Coronary artery disease: Problem comment: - Stress test in 2015: Negative for ischemia - Coronary CTA 07/2007 - showed extensive plaques but not critical stenosis: Coronary Anatomy: (Right Dominant) Left Main: No stenosis, no plaque. Left Anterior Descending: Mild stenosis with calcific and non-calcific plaque. First Diagonal: Mild stenosis, calcific plaque. Circumflex: Mild stenosis, calcific plaque. First Obtuse Marginal: Mild stenosis, calcific plaque. Right Coronary Artery: Mild to moderate stenosis with calcific plaque. Posterior Descending Artery: No stenosis, no plaque. Impression 1. No severe stenosis noted. 2. Extensive calcific and non-calcific plaque. Status: Acute Plan - pain management and prophylaxis per orthopedic surgery team - continue home medications for comorbidities - anticipate routine postoperative course
[2024-01-05] MEDS: ONDANSETRON 2 MG/ML inj 4 MG IVP (15:40)
[2024-01-05] MEDS: MORPHINE 4 MG/ML INJ IVP ×3 (15:41→17:22)
[2024-01-05] MEDS: ACETAMINOPHEN 500 MG TABLET 1000 MG PO ×2 (15:43→21:54)
[2024-01-05] MEDS: OXYCODONE 5 MG TABLET PO ×2 (15:51→18:02)
[2024-01-05] MEDS: CEFAZOLIN 1 GM in 0.9 % SODIUM CHLORIDE Mini-bag 100 ML IVPB (17:22)
--- NOTE | 2024-01-05 18:23 | PC.NURSE ---
End of Shift: Patient pleasant and cooperative. Patient vitally stable, lungs clear, BS WNL, IV running LR at 75. Upon arrival from surgery pain was hard to control, every pain medication was given, minimum pain rate has been 5/10. Initially patient was very hypertensive more than likely due to pain, as pain became more controlled BP decreased. Patient tolerating regular diet eating all of her dinner, patient has not yet urinated. Patient has a new sore on the bottom of her tongue, it looks like it occurred during surgery, patient reports tongue and throat discomfort. Left knee is wrapped with lidya bandage C/D/I, active ice in use.
[2024-01-05] MEDS: METOPROLOL TARTRATE 25 MG TABLET 12.5 MG PO (21:55)
[2024-01-05] MEDS: ASPIRIN 81 MG TABLET EC PO (21:55)
[2024-01-05] MEDS: oxyBUTYnin chloride 5 MG TABLET 2.5 MG PO (21:56)
[2024-01-05] MEDS: SENNOSIDES 1 TAB TABLET 2 TAB PO (21:57)
[2024-01-05] MEDS: LATANOPROST 0.005% OPHTH 1 DROP EYE-BOTH (21:58)
[2024-01-06] MEDS: CEFAZOLIN 1 GM in 0.9 % SODIUM CHLORIDE Mini-bag 100 ML IVPB (02:00)
[2024-01-06 02:55] VITALS: BP 154/68; PULSE 57; RESP 20; TEMP 36.8; O2SAT 96
[2024-01-06] MEDS: ACETAMINOPHEN 500 MG TABLET 1000 MG PO ×2 (03:05→08:51)
[2024-01-06] MEDS: LEVOTHYROXINE 112 MCG TABLET PO (06:16)
--- NOTE | 2024-01-06 06:29 | PC.NURSE ---
End of shift note ([id number]): Patient pleasant, alert and oriented. Scheduled Tylenol and ice pack have been effective as pt reports ?not really? having pain. Joseluis wrap applied to left knee. Surgical dressing C,D&I. Ambulated to bathroom with walker, gait belt and assist of one. Declined to walk in the hallway last night. IV saline locked.
[2024-01-06 06:54] LABS: Hematocrit 39.9 % (33.0-51.0); Hemoglobin* 13.3 gm/dL (12.0-16.0); Immature Granulocytes Abs Auto 0.02 K/uL (0.00-0.30); Immature Granulocytes Pct Auto 0.2 %; Lymphocytes Percent Auto 7.4 % (20-44); Mean Corpuscular HGB Conc 33 gm/dL (32-36); Mean Corpuscular Hemoglobin 32 pg (26-34); Mean Corpuscular Volume 95 fL (80-100); Monocytes Percent Auto 7.7 % (0.0-11.0); Neutrophils Percent Auto 84.7 % (42.0-72.0); Platelet Count* 180 K/uL (140-440); RDW Coefficient of Variation % 12.9 % (11.5-15.5); Red Blood Count 4.22 m/uL (4.00-5.20); White Blood Count* 9.84 K/uL (4.50-11.00)
[2024-01-06 07:00] VITALS: BP 136/83; PULSE 86; RESP 20; TEMP 36.6; O2SAT 95
[2024-01-06 07:08] LABS: Slide Review Reflex No
[2024-01-06 07:09] LABS: Potassium* 3.6 mmol/L (3.6-5.1); Sodium* 133 mmol/L (135-149)
[2024-01-06 07:12] LABS: Blood Urea Nitrogen* 18 mg/dL (7-30); Creatinine* 0.9 mg/dL (0.5-1.5); Est. Creatinine Clearance* 31.15; Estimated Glomerular Filt Rate 64 ml/min
--- NOTE | 2024-01-06 07:33 | PM.ORPN ---
Subjective Subjective Time Seen by Provider: 07:34 Date Seen: 01/06/24 Principal diagnosis: Left knee replacement 01/05/2024 Interval history: Talya has some discomfort. She is planning to discharge to home. Her will be helping her. She ambulated well to the restroom and back. She is able to get herself off toilet on her own. Ortho Exam Narrative Exam Narrative: Alert and oriented x3. Patient is in no acute distress. Converses without labored breathing. Hearing is grossly intact. Ambulates with a walker. Examination of left knee shows Joseluis dressing is in place. Large leg. Soft tissue is supple. She is able to straight leg raise. CMS appears intact left lower extremity. Const Vital Signs, click to edit/add: Vital Signs - 24 hr 01/05/24 09:51 01/05/24 10:55 01/05/24 11:00 Temperature 98.1 F Pulse Rate 59 L 49 L 52 L Pulse Rate [Pulse Oximeter] Respiratory Rate 16 16 16 Blood Pressure 128/101 H 190/98 H 187/88 H Blood Pressure [Left Arm] Pulse Oximetry 98 99 99 Oxygen Delivery Method Room Air Nasal Cannula Nasal Cannula Oxygen Flow Rate 2 2 01/05/24 14:27 01/05/24 14:35 01/05/24 14:40 Temperature 97.5 F L Pulse Rate 47 L 46 L 47 L Pulse Rate [Pulse Oximeter] Respiratory Rate 16 18 18 Blood Pressure 162/70 H 155/68 H 154/68 H Blood Pressure [Left Arm] Pulse Oximetry 96 94 93 Oxygen Delivery Method Room Air Room Air Room Air Oxygen Flow Rate 01/05/24 14:45 01/05/24 14:50 01/05/24 14:55 Temperature 97.4 F L Pulse Rate 45 L 47 L 46 L Pulse Rate [Pulse Oximeter] Respiratory Rate 18 16 14 Blood Pressure 158/65 H 158/67 H 154/84 H Blood Pressure [Left Arm] Pulse Oximetry 93 94 95 Oxygen Delivery Method Room Air Room Air Room Air Oxygen Flow Rate 01/05/24 15:00 01/05/24 15:07 01/05/24 15:07 Temperature 97.2 F L 96.8 F L Pulse Rate 46 L 46 L Pulse Rate [Pulse Oximeter] Respiratory Rate 16 12 Blood Pressure 157/75 H 159/78 H Blood Pressure [Left Arm] Pulse Oximetry 94 98 97 Oxygen Delivery Method Room Air Room Air Oxygen Flow Rate 01/05/24 15:15 01/05/24 15:30 01/05/24 15:45 Temperature 96.9 F L 97.2 F L 97.4 F L Pulse Rate 46 L 46 L 49 L Pulse Rate [Pulse Oximeter] Respiratory Rate 12 12 18 Blood Pressure 174/82 H 188/78 H 186/76 H Blood Pressure [Left Arm] Pulse Oximetry 97 98 98 Oxygen Delivery Method Room Air Room Air Room Air Oxygen Flow Rate 01/05/24 15:54 01/05/24 16:00 01/05/24 16:30 Temperature 97.6 F 97.4 F L Pulse Rate 46 L 51 L Pulse Rate [Pulse Oximeter] Respiratory Rate 20 20 Blood Pressure 190/83 H 170/66 H Blood Pressure [Left Arm] Pulse Oximetry 96 100 98 Oxygen Delivery Method Room Air Room Air Room Air Oxygen Flow Rate 01/05/24 16:35 01/05/24 17:00 01/05/24 18:00 Temperature 97.7 F 97.7 F Pulse Rate 71 70 Pulse Rate [Pulse Oximeter] Respiratory Rate 20 14 16 Blood Pressure 153/85 H 128/77 Blood Pressure [Left Arm] Pulse Oximetry 98 96 Oxygen Delivery Method Room Air Room Air Oxygen Flow Rate 2 01/05/24 19:00 01/05/24 20:00 01/05/24 21:00 Temperature 97.4 F L 97.6 F 97.4 F L Pulse Rate 63 65 64 Pulse Rate [Pulse Oximeter] Respiratory Rate 18 18 18 Blood Pressure 169/83 H 154/80 H 132/73 Blood Pressure [Left Arm] Pulse Oximetry 96 96 96 Oxygen Delivery Method Room Air Room Air Room Air Oxygen Flow Rate 01/05/24 22:03 01/05/24 23:00 01/05/24 23:00 Temperature 97.4 F L Pulse Rate Pulse Rate [Pulse Oximeter] 57 L Respiratory Rate 19 19 Blood Pressure Blood Pressure [Left Arm] 158/82 H Pulse Oximetry 98 98 98 Oxygen Delivery Method Room Air Room Air Oxygen Flow Rate 01/06/24 02:55 Temperature 98.3 F Pulse Rate Pulse Rate [Pulse Oximeter] 57 L Respiratory Rate 20 Blood Pressure Blood Pressure [Left Arm] 154/68 H Pulse Oximetry 96 Oxygen Delivery Method Room Air Oxygen Flow Rate Assessment and Plan Assessment and plan (1) Status post left knee replacement: Problem details: - 01/05/24Colt Status: Acute Assessment and Plan: Plan for discharge is today to home if they meet discharge criteria. DVT prophylaxis includes aspirin 81 mg twice daily x 35 days, Joseluis compression Frequent ambulation, every hour throughout the day. Remove dressing in 1 week. Observe wound and phone Orthopedics with any questions or concerns Return to clinic in 1 to 2 week for a wound check Return to clinic in 6 weeks with surgeon Minimize narcotic use. Wean off and discontinue soon as possible. Activities as tolerated. No strenuous activity. Outpatient physical therapy as scheduled. Ice and elevate the operative extremity. No restriction on ice.
[2024-01-06] MEDS: OXYCODONE 5 MG TABLET PO (09:51)
[2024-01-06] MEDS: ATORVASTATIN 10 MG TABLET 20 MG PO (09:56)
[2024-01-06] MEDS: oxyBUTYnin chloride 5 MG TABLET 2.5 MG PO (09:56)
[2024-01-06] MEDS: ASPIRIN 81 MG TABLET EC PO (09:57)
[2024-01-06] MEDS: SENNOSIDES 1 TAB TABLET 2 TAB PO (09:57)
[2024-01-06] MEDS: MULTIVITAMIN/MINERALS 1 TABLET 1 TAB PO (09:58)
[2024-01-06] MEDS: hydroCHLOROthiazide 25 MG TABLET PO (09:58)
[2024-01-06] MEDS: METOPROLOL TARTRATE 25 MG TABLET 12.5 MG PO (10:02)
--- NOTE | 2024-01-06 12:25 | PC.SOCIAL ---
Discharge planning: child welfare social worker met with pt and her today before discharge. Pt feels good about returning home today. child welfare social worker did provide pt with a list of Community Resources following a hospital discharge. child welfare social worker went over the resources with the pt and her . Pt and her were thankful for the information and visit. Social work to follow-up as needed.
== END 2024-01-06 11:15 | disposition home or self-care (01) ==
LOC: OR 09:37 → MEDSURG 09:40
PROVIDERS: PCP Family Medicine; Visit Provider Orthopaedic Surgery
PROC: (CPT 27447; principal; 2024-01-05 12:45)
DX: M17.12 Unilateral primary osteoarthritis, left knee (principal); G89.18 Other acute postprocedural pain; G89.29 Other chronic pain; I10 Essential (primary) hypertension; E11.9 Type 2 diabetes mellitus without complications; I48.91 Unspecified atrial fibrillation; E03.9 Hypothyroidism, unspecified; I25.10 Atherosclerotic heart disease of native coronary artery without angina pectoris; F32.A Depression, unspecified; G25.81 Restless legs syndrome; E78.2 Mixed hyperlipidemia
CPT/HCPCS: 27447; 01402; 36415; 64447; 64454; 73560; 76942; 82565; 84132; 84295; 84520; 85025; 97110; 97116; 97161; 97165; 97530; 97535; 99100; A9153; A9270; C1776; J0690; J1100; J1170; J2250; J2270; J2405; J2704; J3010; J7120

== ENCOUNTER 2024-03-23 14:00 | Outpatient (RCR) | payer MEDICARE, BC, SELFPAY ==
--- NOTE | 2023-12-29 11:28 | PT.OPEX ---
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 Vanessa Subjective Subjective Patient is a 83 year old female who presents to physical therapy for her pre- op appointment prior to her left TKA on 01/05/24. She states that she has been having knee pain for years. Significant past medical history includes metal implants on left wrist, R TKA, depression, hypertension, skin cancer and arthritis. Pain Comments Today: 2/10 on a 0-10 pain scale with 10 = extreme pain At its worst: 10/10 At its best: 2/10 Current Work Status Retired Precautions Weight Bearing Status Full Weight Bearing Therapy Limitations/Systems Review Not Limited Objective Other/Pertinent Objective GAIT/FUNCTIONAL MOBILITY Antalgic gait, Ambulates with single point cane today, but states she normally does not use it KNEE ROM Right: Grossly tested WNL Left: Extension/Flexion: 0-120 HIP ROM Grossly tested WNL B LLE MMT: Hip flexion: R 4/5 L 4-/5 Hip abduction: R 4-/5 L 4-/5 Hip extension: R 4-/5 L 4-/5 Knee flexion: R 4/5 L 4/5 Knee extension: R 4/5 L 4/5 TX: Reviewed/demonstrated on frequency to perform HEP post operatively including: long sitting quad ankle pumps supine heel slide with strap supine quad sets supine SAQ SLR with quad set seated long arc quad seated knee flexion AAROM supine knee extension stretch on towel roll Extensive discussion and education on what to expect post operatively. Time was spent discussing home modifications, Assistive devices, pain control, fall prevention, hospital stay time line, and assist needed for activities post surgically. Pt questions were answered and demonstrated understanding. Assessment Assessment/Impression Pt is a 83 year old female who presents to PT for her pre-op appointment prior to left TKA on 01/05/24. Patient also has notable objective findings including limited ROM, tenderness to palpation, and decreased strength which are also likely contributing to the problem. Patient is a good candidate for skilled therapy to target deficits described above. Skilled PT intervention is necessary for use of therapeutic exercise manual therapy, neuromuscular re- education, gait training, and therapeutic activity. Functional impairments include difficulty with: standing, walking, exercising, and ADLS. See appropriate sections of PT eval for complete list of goals and POC. D/C plan and criteria is for pt to achieve the goals as listed below or until max rehab potential is met. Pt was agreeable with plan of care and goals established. Primary Functional Limitations standing walking exercising ADLs Plan of Care Rehabilitation Potential Good Physical Therapy Goals STG: (prior to surgery) !. Pt will demonstrate independence in performance of home exercise program with the use of video and/or handouts in order to optimize functional mobility and reduce risk for re-injury. LTG: (post surgery) within 10- 12 weeks 1) Pt will be indep with HEP for long term acute care registered nurse management of pain/symptoms MET 2) Pt will improve knee AROM at least 0-120* for improved sit to stand transfers 3) Patient will ascend/descend at least 14 steps using single rail and reciprocal pattern to improve ease of mobility at home/community to get to basement. 4) Patient will ambulate at least 15 minutes with single point cane, minimal antalgic gait for improved community mobility. Coordination/Communication With Referral Source Treatment Plan/Direct Interventions Gait Training,Manual Therapy, Neuromuscular Re-ed, Therapeutic Activities, Therapeutic Exercises Patient Will Be Discharged From Therapy Independently Progressing Evaluation Billing Untimed Code Treatment Minutes 30 Complexity Low Certification Information Provider Signature Required Yes Provider Signature Shows Agreement With POC & Medical Necessity Physician NPI Number Write NPI# Here Physician Comment/Change : Physician Signature & Date Requested Please Sign/Date Here
== END 2024-05-09 13:01 | disposition home or self-care (01) ==
PROVIDERS: PCP Family Medicine; Visit Provider Orthopaedic Surgery
DX: M17.12 Unilateral primary osteoarthritis, left knee (principal); Z96.652 Presence of left artificial knee joint; Z51.89 Encounter for other specified aftercare
CPT/HCPCS: 97110; 97161; 97164

== ENCOUNTER 2024-08-17 13:00 | Outpatient (RCR) | payer MEDICARE, BC, SELFPAY | END 2024-09-18 09:43 | disposition home or self-care (01) | PROVIDERS: PCP Family Medicine; Visit Provider Family Medicine | DX: R41.89 Other symptoms and signs involving cognitive functions and awareness (principal); R26.81 Unsteadiness on feet; Z51.89 Encounter for other specified aftercare | CPT/HCPCS: 97110; 97161; 97165; 97535 ==

== ENCOUNTER 2024-12-08 19:42 | Emergency (ER) | payer MEDICARE, BC, SELFPAY ==
--- OUTSIDE RECORDS SUMMARY | 2024-12-08 19:44 | XMS_ITS | Clinical Summary ---
Author Organization [facility] Address [address] [place] [id number] Care Team Providers Care Elevator Adjuster Name Role Phone Angel Luis Khan MD Primary Care Provider Allergies Active Allergy Reactions Criticality Noted Date Comments Diltiazem Other - Describe In Comment Field 01/29/2015 Patient can't recall specifically, but says it caused a problem long ago. Hydrocodone-Acetaminop hen Hives 01/06/2017 Lisinopril Intolerance-Can't Take 07/26/2007 cough Tramadol Hives 01/06/2017 Medications MULTIVITAMIN TAB take 1 po daily 9 Active latanoprost (XALATAN) 0.005 % ophthalmic solution PLACE 1 DROP INTO THE RIGHT EYE ONCE DAILY AT BEDTIME. 1 Active atorvastatin (LIPITOR) 20 mg tabletIndications:M ixed hyperlipidemia Take 1 Tablet (20 mg) by mouth once daily. 90 Tablet 3 4 Active citalopram (CELEXA) 20 mg tabletIndications:A djustment disorder with depressed mood Take 1 Tablet (20 mg) by mouth once daily in the morning. 90 Tablet 3 4 Active hydroCHLOROthiazide 25 mg tabletIndications:H ypertension, unspecified type Take 1 Tablet (25 mg) by mouth once daily. 90 Tablet 3 4 Active metoprolol tartrate (LOPRESSOR) 25 mg tabletIndications:T achycardia TAKE 0.5 TABLETS BY MOUTH TWICE DAILY 90 Tablet 3 4 Active pramipexole (MIRAPEX) 0.25 mg tabletIndications:R LS (restless legs syndrome) TAKE 0.5 TABLETS BY MOUTH ONCE DAILY AT BEDTIME. 45 Tablet 3 4 Active alendronate (FOSAMAX) 70 mg tabletIndications:O steopenia, unspecified location Take 1 Tablet (70 mg) by mouth once a week in the morning. Take on empty stomach with full glass of water. Do not lie down for 1 hr. 12 Tablet 3 4 Active calcium carbonate-vitamin D3, 600 mg-400 unit, 600 mg-10 mcg (400 unit) tabletIndications:V itamin D insufficiency Take 1 Tablet by mouth two times daily with meals. 200 Tablet 3 4 Active trospium (SANCTURA) 20 mg tabletIndications:U rinary incontinence, unspecified type Take 1 Tablet (20 mg) by mouth two times daily before meals. 180 Tablet 3 5 Active cyanocobalamin 500 mcg tabletIndications:V itamin B12 deficiency 1 p.o. Wednesday, Wednesday, Wednesday. 90 Tablet 3 5 Active levothyroxine 88 mcg tabletIndications:A cquired hypothyroidism Take 1 Tablet (88 mcg) by mouth before breakfast. 60 Tablet 5 5 Active Active Problems Problem Noted Date Diagnosed Date Cognitive impairment 05/19/2024 Skin cancer 11/28/2018 Overview (01/12/2019): 11/22/18 right upper back, Superficial BCC, ED & C done 01/12/19 Sada Starks PA-C Acquired hypothyroidism 10/28/2015 Essential hypertension 10/28/2015 Coronary artery disease 01/29/2015 Urinary incontinence 09/28/2012 RLS (restless legs syndrome) 09/28/2012 Status post Sherrill fundoplic ation (without gastrostomy tube) procedure 03/15/2008 Impaired fasting glucose 07/26/2007 Mixed hyperlipidemia 05/19/2007 Esophageal reflux 05/19/2007 Adjustment disorder with depressed mood 05/19/20 07 Resolved Problems Problem Noted Date Diagnosed Date Resolved Date Routine adult health maintenance 01/06/2017 03/12/2020 Overview (01/12/2017): Colonoscopy 12/2016 hyperplastic polyp repeat in 10 years Irregular heart rhythm 02/25/201505/19 HYPERTENSION 09/12/2012 09/28/2012 Unspecified essential hypertension 07/26/2007 10/28/2015 Unspecified hypothyroidism 05/19/2007 0 10/28/2015 Obesity, unspecified 05/19/2007 024 Immunizations Immunization Administration Dates Next Due AMB INFLUENZA IIV3 (AGE 65+ YRS) PF (Flu Clinic Only) 02/18/2017 AMB Influenza, IIV3 (Age >=3 years)(Flu Clinic Only) 02/21/2013,04/08/2010,02/25/2009,04/03 Amb Influenza, Inact (High-d ose) (Flu Clinic Only) 03/03/2016,02/20/2014 Amb Influenza, Inactivated A IIV4 (Age 65+ Years) Preserv Free 02/06/2020 COVID-19 VACCINE SPIKEVAX (M ODERNA 50MCG/0.5ML) 12YO+ PFS 04/13/2024,08/19/2023,03/10/2023 COVID-19 vaccine (CloverBio NTech 30mcg/0.3mL) 12YO+ BIVALENT PF, MDV 09/15/2022,02/18/2022 COVID-19 vaccine (Pfizer-Bio NTech 30mcg/0.3mL) 12YO+ DURAN-SUCROSE PF, MDV 09/17/2021 COVID-19 vaccine (Pfizer-Bio NTech 30mcg/0.3mL) PF, MDV 04/07/2021 HepA-HepB (Twinrix) 05/13/2007,12/06/2006,200611/28/2006 Influenza A (H1N1), Inactivated 06/06/2009 Influenza, High-dose Inactivated 01/30/2015 Influenza, IIV3 (Age >=3 years) 05/11/2012 Influenza, Inactivated AIIV4 (Age 65+ Years) Preserv Free 03/10/2023,03/06/2022,02/19/2021 Influenza, Inactivated IIV3 (Age 65+ Years) Preserv Free 04/13/2024,02/03/2019,02/14/2018 Pneumococcal Conj 20-valent (Prevnar 20) 05/08/2022 Pneumococcal [...] Answer Date Recorded PHQ-2 TOTAL SCORE 0 05/19/2024 Social Connections Answer Date Recorded Do you often feel lonely or isolated from those around you? 0 12/17/2023 Financial Resource Strain Answer Date R ecorded Difficulty of Paying Living Expenses 3 12/17/2023 Difficulty of Paying Living Expenses Not on file 12/17/2023 Food Insecurity Answer Date Recorded Do you worry your food will run out before you are able to buy more? 1 12/17/2023 Transportation Needs Answer Date Record ed Does lack of transportation keep you from medica l appointments? 1 12/17/2023 Does lack of transportation keep you from work, meetings or getting things that you need? 1 12/17/2023 Housing Stability Answer Date Recorded What is your housing situation today? 1 12/17/2023 Utilities Answer Date Recorded Do you have trouble paying f or utilities (for example, heat, electricity, water, phone)? 1 12/17/2023 Comments No Sex and Gender Information Value Date Recorded Sex Assigned at Not on file Legal Sex Female 6:21 AM CRYPTOGRAPHIC TECHNICIAN Gender Identity Not on file Sexual Orientation Not on file Obstetrics History Para Term AB IAB SAB Ectopic Multiple Livin g Live Births 2 2 2 Date Outcome GA Total Labor Labor/2nd/3rd Weight Sex Type Anes PTL Dinora A1 A5 Name Clin Term Term Last Filed Vital Signs Vital Sign Reading Time Taken Comments Blood Pressure 122/70 05/19/2024 2:53 PM CRYPTOGRAPHIC TECHNICIAN Pulse 64 05/19/2024 2:14 PM CRYPTOGRAPHIC TECHNICIAN Temperature 36.8 C (98.2 F) 05/06/2021 2:07 PM CRYPTOGRAPHIC TECHNICIAN Respiratory Rate 16 03/16/2016 3:01 PM CDT Oxygen Saturation 99% 05/19/2024 2:14 PM CRYPTOGRAPHIC TECHNICIAN Inhaled Oxygen Concentration - - Weight 70.1 kg (154 lb 9.6 oz) 05/19/2024 2:14 P M CRYPTOGRAPHIC TECHNICIAN Height 154.9 cm (5' 1) 05/19/2024 2:14 PM CRYPTOGRAPHIC TECHNICIAN Body Mass Index 29.21 05/19/2024 2:14 PM CRYPTOGRAPHIC TECHNICIAN Plan of Treatment Health Maintenance Due Date Last Done Comments RSV vaccine for adults or (1 - 1-dose 75+ series) 2016 COVID-19 vaccine series ( season) 2024 04/13/2024, 08/19/2023, 03/10/2023, Additional history exists Influenza Vaccine (#1) 2025 , 03/10/2023, 03/06/2022, Additional history exists BMI (ht and wt on same day) for age 18+ 05/19/2025 05/19/2024, 12/17/2023, 05/10/2023, Additional history exists Depression screening for age 12+ 05/20/2025 05/20/2024, 05/19/2024, 05/13/2023, Additional history exists Medicare Wellness for age 65+ 05/20/2025, 05/10/2023, 05/08/2022, Additional history exists Tetanus booster 03/24/2032 03/24/2022, 05/08/2011, 06/17/2006 Hepatitis B series for 19+ Completed 05/13, 12/06/2006, 10/29/2006 Zoster (shingles) series for age 50+ Completed 07/21/2018, 05/18/2018, 05/31/2008 Pneumococcal series for age 50+ Completed 05/08/2022, 10/31/2014, 09/25/2011 DEXA/DXA scan for age 65+ Completed 2022, 02/07/2019, 10/26/2013, Additional history exists Procedures Procedure Name Priority Date/Time Associated Diagnosis Comments XR DXA BONE DENSITY 2 SITES AXIAL Routine 05/13/2023 9:23 AM CRYPTOGRAPHIC TECHNICIAN Asymptomatic postmenopausal state from Last 3 Months or Most Recently Relevant to Health Maintenance Results * (ABNORMAL) XR DXA BONE DENSITY 2 SITES AXIAL (05/13/2023 9:23 AM CRYPTOGRAPHIC TECHNICIAN) Anatomical Region Laterality Modality Spine, HIPS, HIPL, HIPR Other Impressions 05/18/2023 1:39 PM CRYPTOGRAPHIC TECHNICIAN Osteopenia. RECOMMENDATIONS: The National Osteoporosis Foundation recommends [...] to assess therapeutic efficacy. May Jeff PA-C [facility] 05/18/2023 Narrative 05/18/2023 1:39 PM CRYPTOGRAPHIC TECHNICIAN For Patients: Results are automatically released [facility] once available, in compliance with federal regulations. This means that you may see your results before your provider has had a chance to review them. Please allow 2-3 business days for your provider to comment on the results. XR DXA Bone Mineral Density (BMD) EXAM LOCATION: [address] [address] PATIENT NAME: Talya Coon DATE OF : 1940 EXAM DATE: 05/13/2023 REQUESTING PROVIDER: Angel Luis Khan MD GENDER AT : female HEIGHT: 5' 1.22 (05/10/2023) WEIGHT: 169 lb 12.8 oz (05/10/2023) MENOPAUSAL STATUS: Postmenopausal RACE/ETHNICITY: White RISK FACTORS: Family History of Osteoporosis, History of Fragility Fracture (at a major site), and White Race CURRENT MEDICATION FOR BONE LOSS: NONE INDICATION: Asymptomatic postmenopausal state COMPARISON DATE(S): 2018 DXA scans are compared to prior studies for a patient only when the two (or more) studies were performed on the same scanner. It is not possible to compare data generated on one scanner to data from another because there are not standards in DXA equipment. This applies even if the two scanners are made by the same body team member. PROCEDURE: Dual-energy x-ray absorptiometry performed with routine [...] + 0.3 Change from prior in 2019: Increase 0.3%. RESULTS FEMUR Left femoral neck BMD: 0.762 g/cm2 T-Score: - 2.0 Z-Score: + 0.0 Change from prior in 2019: Decrease 15.9%. Right femoral neck BMD: 0.730 g/cm2 T-Score: - 2.2 Z-Score: - 0.3 Change from prior in 2019: Increase 0.3%. Left hip BMD: 0.783 g/cm2 T-Score: - 1.8 Z-Score: + 0.0 Change from prior in 2019: Decrease 9.3%. Right hip BMD: 0.710 g/cm2 T-Score: - 2.4 Z-Score: - 0.6 Change from prior in 2019: Decrease 4.2%. WHO criteria: Normal: T-score at or above -1 SD Osteopenia: T-score between -1.1 and -2.4 SD Osteoporosis: T-score at or below -2.5 SD FRAX RISK CALCULATION (USED FOR OSTEOPENIA ONLY): 10-year probability of major osteoporotic fracture: 23.1%. 10-year probability of hip fracture: 6.9%. Angel Luis Khan MD DEXA Final Result from Last 3 Months or Most Recently Relevant to Health Maintenance Insurance MEDICARE PART B HB ONLY BLUE CROSS LIME BLUE MR PB ONLY Care Teams Elevator Adjuster Relationship Specialty Start Date End Date Angel Luis Khan MD [address] [place] [address] PCP - General 06/17/06
[2024-12-08 20:16] VITALS: BP 96/62; PULSE 64; RESP 16; TEMP 36.3; O2SAT 98; BMI 25.7
--- NOTE | 2024-12-08 20:34 | CRLHL7_ITS ---
For Patients: As a result of the Century Cures Act, medical imaging exams and procedure reports are released immediately into your electronic medical record. You may view this report before your referring provider. If you have questions, please contact your health care provider. Indication: Trauma. Technique: Left foot, 3 views. Comparison: None. Findings/Impression: Bones: Alignment is normal. No displaced fractures or bone lesions. Joint spaces: Unremarkable. Soft tissues: Unremarkable. Dictated by Lewis Ramos MD @ 12/08/2024 9:08:12 PM (Electronically Signed)
--- NOTE | 2024-12-08 20:38 | ED.FALL ---
HPI - Fall General Chief Complaint: Fall/Minor Trauma Stated Complaint: Fall, hithead on tile floor Time Seen by Provider: 12/08/24 20:24 History of Present Illness HPI Narrative: This 84-year-old female comes in with her . About 3 hours prior to arrival she tripped and fell onto her left side. She did bump the back of her head but did not have loss of consciousness. She does have a lump in the upper occipital region. She was able to get up and ambulate. She does report some pain in her left foot. She also has some mild discomfort in her left wrist but has full range of motion and now minimal pain there. She is not on any anticoagulants. Related Data Home Medications ?Medication ?Instructions ?Recorded ?Confirmed atorvastatin 20 mg tablet 20 mg PO DAILY 03/30/23 07/18/24 citalopram 20 mg tablet 20 mg PO DAILY 03/30/23 07/18/24 hydrochlorothiazide 25 mg tablet 25 mg PO DAILY 03/30/23 07/18/24 latanoprost 0.005 % eye drops 1 drp ophthalmic (eye) HS 03/30/23 07/18/24 levothyroxine 112 mcg tablet 112 mcg PO DAILY 03/30/23 07/18/24 metoprolol tartrate 25 mg tablet 12.5 mg PO BID 03/30/23 07/18/24 multivitamin (Multiple Vitamins 1 tab PO DAILY 03/30/23 07/18/24 tablet) pramipexole 0.25 mg tablet 0.125 mg PO HS 03/30/23 07/18/24 oxybutynin chloride 5 mg tablet 2.5 mg PO BID 12/09/23 07/18/24 Allergies Allergy/AdvReac Type Severity Reaction Status Date / Time hydrocodone (From Panlor Allergy Mild Hives Verified 07/18/24 11:01 (hydrocodone-acetamin)) tramadol Allergy Mild Hives Verified 07/18/24 11:01 diltiazem (From Cardizem) AdvReac Mild Verified 07/18/24 11:01 lisinopril AdvReac Mild Cough Verified 07/18/24 11:01 Review of Systems Status of ROS: Reports: 10 or more systems reviewed and unremarkable except as noted in History and below Narrative: Constitutional: No fevers, no weight gain or loss. Eyes: No discharge. No vision changes. HENT: No congestion, no sore throat, no ear pain. Cardiovascular: No chest pain, no palpitations. Respiratory: No shortness of breath, no wheezes, no cough. Gastrointestinal: No abdominal pain, no vomiting, no diarrhea. Genitourinary: No dysuria, no hematuria. Musculoskeletal: Left foot pain. Skin: No rashes, no pruritis. Neurological: No dizziness, weakness, sensory change, speech change. Endo/Heme/Allergies: No bruising or bleeding. No polydipsia. Pysch: no suicidality, no anxiety, no insomnia. All other systems reviewed and are negative. [facility] Medical History Skin cancer (11/28/18) ?C44.90 - Unspecified malignant neoplasm of skin, unspecified (ICD-10) Obesity, unspecified (05/19/07) ?E66.9 - Obesity, unspecified (ICD-10) Irregular heart rhythm (02/25/15) ?I49.9 - Cardiac arrhythmia, unspecified (ICD-10) Esophageal reflux (05/19/07) ?K21.9 - Gastro-esophageal reflux disease without esophagitis (ICD-10) Urinary incontinence (09/28/12) ?R32 - Unspecified urinary incontinence (ICD-10) RLS (restless legs syndrome) (09/28/12) ?G25.81 - Restless legs syndrome (ICD-10) Mixed hyperlipidemia (05/19/07) ?E78.2 - Mixed hyperlipidemia (ICD-10) Impaired fasting glucose (07/26/07) ?R73.01 - Impaired fasting glucose (ICD-10) Essential hypertension (10/28/15) ?I10 - Essential (primary) hypertension (ICD-10) Coronary artery disease (01/29/15) ?I25.10 - Atherosclerotic heart disease of [place] coronary artery without angina pectoris (ICD-10) Adjustment disorder with depressed mood (05/19/07) ?F43.21 - Adjustment disorder with depressed mood (ICD-10) Acquired hypothyroidism (10/28/15) ?E03.9 - Hypothyroidism, unspecified (ICD-10) Non-insulin dependent diabetes mellitus Peptic ulcer disease ?K27.9 - Peptic ulcer, site unspecified, unspecified as acute or chronic, without hemorrhage or perforation (ICD-10) Osteopenia ?M85.80 - Other specified disorders of bone density and structure, unspecified site (ICD-10) Diverticulosis ?K57.90 - Diverticulosis of intestine, part unspecified, without perforation or abscess without bleeding (ICD-10) Atrial fibrillation ?I48.91 - Unspecified atrial fibrillation (ICD-10) Hypothyroidism ?E03.9 - Hypothyroidism, unspecified (ICD-10) Depression ?F32.A - Depression, unspecified (ICD-10) HTN (hypertension) ?I10 - Essential (primary) hypertension (ICD-10) Hill Sachs deformity, left ?M21.822 - Other specified acquired deformities of left upper arm (ICD-10) Anterior shoulder dislocation (04/11/22) ?S43.016A - Anterior dislocation of unspecified humerus, initial encounter (ICD-10) Bankart lesion of left shoulder ?S43.492A - Other sprain of left shoulder joint, initial encounter (ICD-10) Rotator cuff tear, left ?M75.102 - Unspecified rotator cuff tear or rupture of left shoulder, not specified as traumatic (ICD-10) Tendinopathy of left biceps ?M67.922 - Unspecified disorder of synovium and tendon, left upper arm (ICD-10) Osteoarthritis of left knee ?M17.12 - Unilateral primary osteoarthritis, left knee (ICD-10) Restless legs ?G25.81 - Restless legs syndrome (ICD-10) Urinary incontinence ?R32 - Unspecified urinary incontinence (ICD-10) Adjustment disorder with depressed mood ?F43.21 - Adjustment disorder with depressed mood (ICD-10) Acquired hypothyroidism ?E03.9 - Hypothyroidism, unspecified (ICD-10) Impaired fasting glucose ?R73.01 - Impaired fasting glucose (ICD-10) Mixed hyperlipidemia ?E78.2 - Mixed hyperlipidemia (ICD-10) Essential hypertension ?I10 - Essential (primary) hypertension (ICD-10) Coronary artery disease ?I25.10 - Atherosclerotic heart disease of [place] coronary artery without angina pectoris (ICD-10) Surgical History Status post Sherrill fundoplication (without gastrostomy tube) procedure (03/15/08) ?Z98.890 - Other specified postprocedural states (ICD-10) 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) ?Z96.652 - Presence of left artificial knee joint (ICD-10) Status post Sherrill fundoplication (without gastrostomy tube) procedure ?Z98.890 - Other specified postprocedural states (ICD-10) Status post trigger finger release (03/31/23) ?Z98.890 - Other specified postprocedural states (ICD-10) History of open reduction and internal fixation (ORIF) procedure (03/31/23) ?Z98.890 - Other specified postprocedural states (ICD-10) History of phacoemulsification of cataract of left eye with intraocular lens implantation (10/10/08) ?Z98.42 - Cataract extraction status, left eye (ICD-10) ?Z96.1 - Presence of intraocular lens (ICD-10) History of YAG laser capsulotomy of lens of right eye (11/21/08) ?Z98.41 - Cataract extraction status, right eye (ICD-10) History of bladder surgery ?Z98.890 - Other specified postprocedural states (ICD-10) History of bunionectomy of both great toes ?Z98.890 - Other specified postprocedural states (ICD-10) History of hysterectomy (1992) ?Z90.710 - Acquired absence of both cervix and uterus (ICD-10) History of colectomy (~2007) ?Z90.49 - Acquired absence of other specified parts of digestive tract (ICD-10) H/O repair of right rotator cuff (~2013) ?Z98.890 - Other specified postprocedural states (ICD-10) 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) ?Z96.651 - Presence of right artificial knee joint (ICD-10) Social History (Updated 01/05/24 @ 15:44 by Malinda Navarro MD) Narrative: 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 What is your current living situation?: I presently have a place to live Problems where you live: no known problems Problems where you live details: NA In the past 12 months, utilities in danger of being shut off: no In past 12 months, lack of transportation kept you from medical appts, meetings, work, or getting things needed for daily living: no In the past 12 mos, have been you worried that your food would run out before you had money to buy more?: never true In the past 12 mos, the food you bought just didn't last and you didn't have money to buy more?: never true Smoking Status: Never smoker Do you use any of these nicotine containing products: None Second hand tobacco smoke exposure: No How often do you have a drink containing alcohol: never How many standard drinks containing alcohol do you have on a typical day: 1 or 2 How often do you have six or more drinks on one occasion: Daily or almost daily AUDIT-C Alcohol total score: 4 Non-prescribed substance use: denies use Caffeine: No How often does anyone, including family, friends and others, physically hurt you: never How often does anyone, including family, friends and others, insult or talk down to you: never How often does anyone, including family, friends and others, threaten you with harm: never How often does anyone, including family, friends and others, scream or curse at you: never Exam Narrative: Exam Narrative: Constitutional: Well-developed, well-nourished, no acute distress. HEENT: She has a small lump on the left upper occipital region of her head. There is no sign of skin injury. No fluctuance. Neck: Normal range of motion. Nontender. Supple. Heart: Regular. No murmurs. Normal rate. Intact distal pulses. Lungs: Clear to auscultation. No chest discomfort. No wheezes, rhonchi, or rales. Abdomen: Normal bowel sounds. Nontender. No rebound tenderness. Genitalia: Deferred. Back: No midline tenderness. Normal range of motion. Extremities: Normal range of motion. Diffuse tenderness in her left foot. No obvious sign of deformity. Skin: Intact. No rash. Warm. No erythema or pallor. Neurologic: No altered sensation. No weakness. Alert and oriented. Psychiatric: No suicidality. No anxiety or depression. No insomnia. Nursing notes and vitals signs are reviewed. Const: Vital Signs, click to edit/add: Vital Signs - 24 hr 12/08/24 20:16 Temperature 97.3 F L Pulse Rate [Left P ulse Oximeter] 64 Respiratory Rate 16 Blood Pressure [Ri ght Upper Arm] 96/62 Pulse Oximetry 98 Oxygen Delivery Me thod Room Air Course Vital Signs Vital signs: Initial Vital Signs Temperature 97.3 F L 12/08/24 20:16 Temperature Source Temporal Artery Scan 12/08/24 20:16 Pulse Rate 64 12/08/24 20:16 Pulse Rhythm Regular 12/08/24 20:16 Respiratory Rate 16 12/08/24 20:16 Blood Pressure 96/62 12/08/24 20:16 Blood Pressure Mean 73 12/08/24 20:16 Blood Pressure Position Sitting 12/08/24 20:16 Pulse Oximetry 98 12/08/24 20:16 Oxygen Delivery Method Room Air 12/08/24 20:16 Vital Signs Temperature 97.3 F L 12/08/24 20:16 Pulse Rate 64 12/08/24 20:16 Respiratory Rate 16 12/08/24 20:16 Blood Pressure 96/62 12/08/24 20:16 Pulse Oximetry 98 12/08/24 20:16 Oxygen Delivery Method Room Air 12/08/24 20:16 Temperature 97.3 F L 12/08/24 20:16 Pulse Rate 64 12/08/24 20:16 Respiratory Rate 16 12/08/24 20:16 Blood Pressure 96/62 12/08/24 20:16 Pulse Oximetry 98 12/08/24 20:16 Oxygen Delivery Method Room Air 12/08/24 20:16 MDM - Fall MDM Narrative Medical decision making narrative: This patient comes in for evaluation of injuries from a fall that occurred about 3 hours prior to arrival. She did bump her head but did not have loss of consciousness. I did review nexus rules and stated the role of CT imaging of her head. She and her declined this study in a process of shared decision making. Her left wrist is not showing any sign of injury and she does not report any particular discomfort there but does have pain in her left foot. She was able to ambulate on this foot prior to arrival. X-ray images are obtained of the left foot. There is no findings of fracture dislocation on these images. Patient is reassured with this and is okay to be discharged home. She states that she will take Tylenol as needed and directed. Imaging Data XR L Foot: Radiologist's impression: Bones: Alignment is normal. No displaced fractures or bone lesions. Joint spaces: Unremarkable. Soft tissues: Unremarkable. Discharge Plan Discharge Clinical Impression: Injury of foot, left, Closed head injury Patient Disposition: Home w/ Parent or Adult Condition: Stable Additional Instructions: Use [id number] medicines as needed and directed. Increase activity as tolerated. Follow up with MD return if worsening. Prescriptions: No Action multivitamin [Multiple Vitamins] Tablet 1 tab PO DAILY atorvastatin 20 mg tablet 20 mg PO DAILY citalopram 20 mg tablet 20 mg PO DAILY hydrochlorothiazide 25 mg tablet 25 mg PO DAILY latanoprost 0.005 % drops 1 drp ophthalmic (eye) HS Patient Comments: PLACE 1 DROP INTO THE RIGHT EYE ONCE DAILY AT BEDTIME levothyroxine 112 mcg tablet 112 mcg PO DAILY metoprolol tartrate 25 mg tablet 12.5 mg PO BID pramipexole 0.25 mg tablet 0.125 mg PO HS oxybutynin chloride 5 mg tablet 2.5 mg PO BID Follow Up/Referrals: Angel Luis Khan MD [Primary Care Provider, Family Practice] Stand Alone Forms: [employer] Info Instructions
== END 2024-12-08 21:35 | disposition home or self-care (01) ==
PROVIDERS: Emergency Provider Emergency Medicine Emergency Medical Services; PCP Family Medicine
DX: M79.672 Pain in left foot (principal); S09.90XA Unspecified injury of head, initial encounter
CPT/HCPCS: 73630; 99283; 99284

== ENCOUNTER 2025-03-29 16:16 | Emergency (ER) | payer MEDICARE, BC, SELFPAY ==
--- OUTSIDE RECORDS SUMMARY | 2025-03-29 16:18 | XMS_ITS | Clinical Summary ---
Author Organization [employer] [facility] Address [address] [place] [id number] Care Team Providers Care Insurance Manager Name Role Phone Angel Luis Khan MD Primary Care Provider [facility], [facility] Unavailable [phone] Allergies Active Allergy Reactions Criticality Noted Date [...] BEDTIME. 1 Active atorvastatin (LIPITOR) 20 mg tabletIndications: Mixed hyperlipidemia Take 1 Tablet (20 mg) by mouth once daily. 90 Tablet 3 4 Active pramipexole (MIRAPEX) 0.25 mg tabletIndications: RLS (restless legs syndrome) TAKE 0.5 TABLETS BY MOUTH ONCE DAILY AT BEDTIME. 45 Tablet 3 4 Active alendronate (FOSAMAX) 70 mg tabletIndications: Osteopenia, unspecified location Take 1 Tablet (70 mg) by mouth once a week in the morning. Take on empty stomach with full glass of water. Do not lie down for 1 hr. 12 Tablet 3 4 Active calcium carbonate-vitamin D3, 600 mg-400 unit, 600 mg-10 mcg (400 unit) tabletIndications: Vitamin D insufficiency Take 1 Tablet by mouth two times daily with meals. 200 Tablet 3 4 Active cyanocobalamin 500 mcg tabletIndications: Vitamin B12 deficiency 1 p.o. Wednesday, Wednesday, Wednesday. 90 Tablet 3 5 Active levothyroxine 88 mcg tabletIndications: Acquired hypothyroidism Take 1 Tablet (88 mcg) by mouth before breakfast. 60 Tablet 5 5 Active brimonidine-timolo L (COMBIGAN) 0.2-0.5 % ophthalmic solution Place 1 Drop into right eye two times daily. 5 Active vibegron (GEMTESA) 75 mg tabletIndications: Urinary incontinence, unspecified type Take 1 Tablet (75 mg) by mouth once daily. Swallow tablet whole. May be crushed and mixed in applesauce. Follow with glass of water. 30 Tablet 11 5 Active sertraline (ZOLOFT) 50 mg tabletIndications: Depression, unspecified depression type 1/2 tab oral daily for one week, then one daily. 30 Tablet 1 5 Active citalopram (CELEXA) 20 mg tabletIndications: Adjustment disorder with depressed mood Take 1 Tablet (20 mg) by mouth once daily in the morning. 90 Tablet 3 4 025 Discontinu ed(*Med complete/R egimen complete/L evel of care change) metoprolol tartrate (LOPRESSOR) 25 mg tabletIndications: Tachycardia TAKE 0.5 TABLETS BY MOUTH TWICE DAILY 90 Tablet 3 4 025 Discontinu ed(*Med complete/R egimen complete/L evel of care change) trospium (SANCTURA) 20 mg tabletIndications: Urinary incontinence, unspecified type Take 1 Tablet (20 mg) by mouth two times daily before meals. 180 Tablet 3 5 025 Discontinu ed(*Med complete/R egimen complete/L evel of care change) cephalexin 500 mg capsuleIndications :urinary tract infection Take 1 Capsule (500 mg) by mouth two times daily for 7 days. 14 Capsule 025 Active Problems Problem Noted Date Diagnosed Date Type 2 diabetes mellitus wit hout complication, without long-term current use of insulin 03/16/2025 Incontinence of feces 03/16/2025 Neurocognitive disorder 03/16/2025 Frailty syndrome in geriatric patient 12/25/2024 Sedentary lifestyle 12/25/2024 Stage 3a chronic kidney disease 12/25/2024 Cognitive impairment 05/19/2024 Skin cancer 11/28/2018 Overview (01/12/2019): 11/22/18 right upper back, Superficial BCC, ED & C done 01/12/19 Sada Starks PA-C Acquired hypothyroidism 10/28/2015 Essential hypertension 10/28/2015 Coronary artery disease 01/29/2015 Urinary incontinence 09/28/2012 RLS (restless legs syndrome) 09/28/2012 Status post Sherrill fundoplic ation (without gastrostomy tube) procedure 03/15/2008 Mixed hyperlipidemia 05/19/2007 Esophageal reflux 05/19/2007 Adjustment disorder with depressed mood 05/19/20 07 Resolved Problems Problem Noted Date Diagnosed Date Resolved Date Frailty 03/16/2025 03/16/2025 Routine adult health maintenance 01/06/2017 03/12/2020 Overview (01/12/2017): Colonoscopy 12/2016 hyperplastic polyp repeat in 10 years Irregular heart rhythm 02/25/201505/19 HYPERTENSION 09/12/2012 09/28/2012 Unspecified essential hypertension 07/26/2007 10/28/2015 Impaired fasting glucose 07/26/2007 Unspecified hypothyroidism 05/19/2007 0 10/28/2015 Obesity, unspecified 05/19/2007 024 Encounters Date Type Department Care Team Description 03/29/2025 2:45 PM GROUP SALES COORDINATOR Office Visit [facility] [address] [place] [address] Jeanette Clayton MD Extremity Weakness (since yesterday not eating for a couple of days ) 03/29/2025 9:00 AM GROUP SALES COORDINATOR [facility] [address] [place] [address] Felecia Baird COMPOSITION WORKER - HOME VISIT 03/29/2025 Travel 03/29/2025 Home [facility] [address] [place] [address] Charles Brizuela, OT CARE COORDINATION 03/27/2025 4:00 PM GROUP SALES COORDINATOR [facility] [address] [place] [phone] Isamar Ford COTA OT - HOME VISIT 03/26/2025 12:15 PM GROUP SALES COORDINATOR [facility] [address] [place] [phone] Salina Littlejohn, PT PT - HOME VISIT 03/23/2025 12:45 PM CDT Home [facility] [address] [place] [phone] Charles Brizuela, OT OT - INITIAL ASSESSMENT 03/22/2025 12:30 PM CDT Home [facility] [address] [place] [phone] Salina Littlejohn, PT PT - OASIS START OF CARE 03/22/2025 Telephone [facility] [address] [place], [place] [phone] Salina Littlejohn, PT Home Care (requesting ongoing homecare orders) 03/22/2025 Plan of Care Documentation [facility] [address] [place] [phone] 03/19/2025 Home [facility] Visit [facility] [address] [place] [phone] Dasha Segal, RN CARE COORDINATION 03/19/2025 Home [facility] Visit [facility] [address] [place] [phone] Dasha Segal, RN CARE COORDINATION 03/17/2025 Orders Only [address] [address] Angel Luis Khan MD <No scans attached> 03/16/2025 11:20 AM CDT Office Visit [facility] [address] [facility] [place] [address] Angel Lusi Khan MD Urinary Problem (Incontinence ); Rectal Problem (Incontinence ); Concerns (Dehydration ) 03/16/2025 Travel 03/14/2025 Nurse Triage [facility] Centralized Nurse Triage Angel Luis Khan MD Urinary Problem from Last 3 Months Immunizations Immunization Administration Dates Next Due AMB INFLUENZA IIV3 (AGE 65+ YRS) PF (Flu Clinic Only) 02/18/2017 AMB Influenza, IIV3 (Age >=3 years)(Flu Clinic Only) 02/21/2013,04/08/2010,02/25/2009,04/03 Amb Influenza, Inact (High-d ose) (Flu Clinic Only) 03/03/2016,02/20/2014 Amb Influenza, Inactivated A IIV4 (Age 65+ Years) Preserv Free 02/06/2020 COVID-19 VACCINE SPIKEVAX (M ODERNA 50MCG/0.5ML) 12YO+ PFS 04/13/2024,08/19/2023,03/10/2023 COVID-19 vaccine (Pfizer-Bio NTech 30mcg/0.3mL) 12YO+ BIVALENT [...] drink = 0.6 oz pur e alcohol) one glass of wine per day. PHQ-2 Answer Date Recorded PHQ-2 TOTAL SCORE 0 05/19/2024 Social Connections Answer Date Recorded Do you often feel lonely or isolated from those around you? 0 12/24/2024 Alcohol Use Answer Date Recorded How often do you have a drink containing alcohol ? 0 03/16/2025 Average Number of Drinks Not on file 025 Frequency of Binge Drinking Not on file 02/22 Financial Resource Strain Answer Date R ecorded Difficulty of Paying Living Expenses 3 12/24/2024 Difficulty of Paying Living Expenses Not on file 12/24/2024 Food Insecurity Answer Date Recorded Do you worry your food will run out before you are able to buy more? 1 12/24/2024 Transportation Needs Answer Date Record ed Does lack of transportation keep you from medica l appointments? 1 12/24/2024 Does lack of transportation keep you from work, meetings or getting things that you need? 1 12/24/2024 Housing Stability Answer Date Recorded What is your housing situation today? 1 12/24/2024 Utilities Answer Date Recorded Do you have trouble paying f or utilities (for example, heat, electricity, water, phone)? 1 12/24/2024 Comments No Sex and Gender Information Value Date Recorded Sex Assigned at Not on file Legal Sex Female 6:21 AM GROUP SALES COORDINATOR Gender Identity Not on file Sexual Orientation Not on file Obstetrics History Para Term AB IAB SAB Ectopic Multiple Livin g Live Births 2 2 2 Date Outcome GA Total Labor Labor/2nd/3rd Weight Sex Type Anes PTL Dinora A1 A5 Name Clin Term Term Last Filed Vital Signs Vital Sign Reading Time Taken Comments Blood Pressure 113/81 03/29/2025 3:02 PM GROUP SALES COORDINATOR Pulse 118 03/29/2025 3:02 PM GROUP SALES COORDINATOR Temperature 36.6 C (97.9 F) 03/29/2025 3:02 PM GROUP SALES COORDINATOR Respiratory Rate 16 03/27/2025 4:15 PM GROUP SALES COORDINATOR Oxygen Saturation 92% 03/29/2025 3:02 PM GROUP SALES COORDINATOR Inhaled Oxygen Concentration - - Weight 67.1 kg (148 lb) 03/16/2025 11:27 AM CDT Height 154.9 cm (5' 1) 05/19/2024 2:14 PM GROUP SALES COORDINATOR Body Mass Index 27.96 05/19/2024 2:14 PM GROUP SALES COORDINATOR Plan of Treatment Upcoming Encounters Date Type Department Care Team (Late st Contact Info) Description 03/30/2025 10:00 AM GROUP SALES COORDINATOR [facility]ment [facility] [address] [place] [address] Isamar Ford [address] [address] 04/03/2025 4:00 AM GROUP SALES COORDINATOR Appointment [facility] [address] [place] [phone] Isamar Ford [address] [address] 04/03/2025 3:00 PM GROUP SALES COORDINATOR Appointment [facility] [address] [place] [phone] Salina Littlejohn, PT [address], [place] [address] 04/06/2025 3:00 AM GROUP SALES COORDINATOR [facility]ointment [facility] [address] [place] [phone] Salina Littlejohn, PT [address] [facility] [place] [address] 04/10/2025 3:00 AM GROUP SALES COORDINATOR Appointment [place] [phone] [place] [address], [place] [phone] Salina Littlejohn, PT [address] [facility] [place] [address] 04/10/2025 5:30 AM GROUP SALES COORDINATOR Appointment [address] [place] [phone] Charles Brizuela, OT [address] [place] [address] 04/13/2025 2:05 PM GROUP SALES COORDINATOR Office Visit [facility] [address] [place] [address] Angel Luis Khan MD [address] [place] [address] 04/17/2025 3:00 AM GROUP SALES COORDINATOR Appointment [address] [place] [phone] Salina Littlejohn, PT [address] [place] [address] 04/24/2025 3:00 AM GROUP SALES COORDINATOR Appointment [address] [place] [phone] Salina Littlejohn, PT [address] [place] [address] 05/01/2025 3:00 AM GROUP SALES COORDINATOR Appointment [address] [place] [address] Salina Littlejohn, PT [address] [facility] [place] [address] Health Maintenance Due Date Last Done Comments RSV vaccine for adults or (1 - 1-dose 75+ series) 2016 Influenza Vaccine (#1) 2025 , 03/10/2023, 03/06/2022, Additional history exists BMI (ht and wt on same day) for age 18+ 05/19/2025 05/19/2024, 12/17/2023, 05/10/2023, Additional history exists Depression screening for age 12+ 05/20/2025 05/20/2024, 05/19/2024, 05/13/2023, Additional history exists Medicare Wellness for age 65+ 05/20/2025, 05/10/2023, 05/08/2022, Additional history exists Tetanus booster 03/24/2032 03/24/2022, 05/0 08/2011, 06/17/2006 Hepatitis B series for 19+ Completed 05/13, 12/06/2006, 10/29/2006 Zoster (shingles) series for age 50+ Completed 07/21/2018, 05/18/2018, 05/31/2008 Pneumococcal series for age 50+ Completed 05/08/2022, 10/31/2014, 09/25/2011 DEXA/DXA scan for age 65+ Completed 2022, 02/07/2019, 10/26/2013, Additional history exists Procedures Procedure Name Priority Date/Time Associated Diagnosis Comments URINALYSIS MACROSCOPIC - [facility] ONLY POC DIP ([facility]) Routine 03/16/2025 4:40 PM CDT Dysuria URINE CULTURE Routine 03/16/2025 4:40 PM CDT Dysuria URINALYSIS MICROSCOPIC Routine 03/16/2025 4:40 PM CDT Dysuria HEPATIC FUNCTION PANEL Routine 03/16/2025 12:15 PM CDT Weight loss BASIC METABOLIC PANEL Routine 03/16/2025 12:15 PM CDT Weight loss XR DXA BONE DENSITY 2 SITES AXIAL Routine 05/13/2023 9:23 AM GROUP SALES COORDINATOR Asymptomatic postmenopausal state from Last 3 Months or Most Recently Relevant to Health Maintenance Results * (ABNORMAL) POCT Urinalysis Dipstick Only (03/16/2025 4:40 PM CDT) SPECIFIC GRAVITY 1.020 1.001 - 1.035 03/16/2025 5:09 PM CDT [facility] PROTEIN NEGATIVE NEGATIVE 03/16/2025 5:09 PM CDT [facility] GLUCOSE NEGATIVE NEGATIVE 03/16/2025 5:09 PM CDT [facility] KETONES NEGATIVE NEGATIVE 03/16/2025 5:09 PM CDT [facility] BILIRUBIN NEGATIVE NEGATIVE 03/16/2025 5:09 PM CDT [facility] OCCULT BLOOD TRACE(A) NEGATIVE 03/16/2025 5:09 PM CDT [facility] NITRITE POSITIVE(A) NEGATIVE 03/16/2025 5:09 PM CDT [facility] PH 6.0 5.0 - 8.0 03/16/2025 5:09 PM CDT [facility] LEUKOCYTE ESTERASE 1+(A) NEGATIVE 03/16/2025 5:09 PM CDT [facility] Urine URINE SPECIMEN / Unknown Non-Blood / Unknown 03/16/2025 4:40 PM CDT 03/16/2025 5:00 PM CDT us Angel Luis Khan MD URINE Final Result [facility] [address] [place] [address], [place] [phone] [facility] [address] [place] [address], [place] [phone] * (ABNORMAL) URINALYSIS MICROSCOPIC (03/16/2025 4:40 PM CDT) RBC 6-10(A) 0-2, None Seen /HPF 03/17/2025 1:08 AM CDT [facility] WBC >100(A) 0-2, 3-5, None Seen /HPF 03/17/2025 1:08 AM CDT [facility] BACTERIA Many(A) None Seen, Rare, Few Bacteria/ HPF 03/17/2025 1:08 AM CDT [facility] EPITHELIAL CELLS Few None Seen, Few Epi/HPF 03/17/2025 1:08 AM CDT [facility] HYALINE CASTS 3-5 0-2, 3-5 /LPF 03/17/2025 1:08 AM CDT [facility] CALCIUM OXALATE CRYSTALS Present(A) (none) 03/17/2025 1:08 AM CDT [facility] Urine URINE SPECIMEN / Unknown Non-Blood / Unknown 03/16/2025 4:40 PM CDT 03/16/2025 5:00 PM CDT us Angel Luis Khan MD URINE Final Result [facility] [address] [place] [address], * (ABNORMAL) URINE CULTURE (03/16/2025 4:40 PM CDT) CULTURE RESULT(A) 03/21/2025 6:52 AM CDT [facility] CULTURE >100,000 CFU/mL Escherichia coli 03/21/2025 6:52 AM CDT [facility] CULTURE >100,000 CFU/mL Aerococcus urinae 03/21/2025 6:52 AM CDT [facility] Comment: Aerococcus urinae are usually susceptible to B-lactams and vancomycin. Resistance has been described to the fluoroquinolones. In vivo susceptibility for A. urinae and Trimethoprim-sulfamethoxazole depends on patient's urinary folate concentration. In vitro testing cannot accurately determine in vivo susceptibility for A. urinae. CULTURE <10,000 CFU/mL Multiple organisms probable contaminants 03/21/2025 6:52 AM CDT [facility] Urine URINE SPECIMEN / Unknown Non-Blood / Unknown 03/16/2025 4:40 PM CDT 03/16/2025 5:00 PM CDT Narrative Organism Antibiotic Method Susceptibility Escherichia coli TRIMETHOPRIM/SULF <=/19: S Escherichia coli AMPICILLIN 4: S Escherichia coli CEFAZOLIN <=1: S Escherichia coli CEFAZOLIN-UC <=1: S Comment:Cefazolin-UC interpretations are for therapy of uncomplicated UTIs due to E.coli, K.pneumoniae, or P.mirablis. Cefazolin breakpoint is used as a surrogate to predict results for the oral agents - cefdinir, cefuroxime, and cephalexin, when used for therapy of uncomplicated UTIs due to E coli, K, pneumoniae, and P. mirabilis. The FDA recommends cefadroxil susceptibility can be deduced from cefazolin. Escherichia coli GENTAMICIN <=1: S Escherichia coli CEFTRIAXONE <=0.25: S Escherichia coli CEFTAZIDIME <=0.5: S Escherichia coli LEVOFLOXACIN <=0.12: S Escherichia coli CIPROFLOXACIN <=0.06: S Escherichia coli PIPERACILLIN/TAZO <=4: S Escherichia coli AMPICILLIN/SULBACTAM <=2: S Escherichia coli CEFEPIME <=0.12: S Escherichia coli MEROPENEM <=0.25: S Escherichia coli NITROFURANTOIN <=16: S Angel Luis Khan MD MICROBIOLOGY Final Result [facility] [address] [place] [address], * HEPATIC FUNCTION PANEL (03/16/2025 12:15 PM CDT) ALBUMIN 4.2 3.6 - 5.1 g/dL 03/17/2025 4:12 AM CDT [facility] PROTEIN, TOTAL 7.1 6.1 - 8.1 g/dL 03/17/2025 4:12 AM CDT [facility] BILIRUBIN, TOTAL 0.8 0.2 - 1.2 mg/dL 03/17/2025 4:12 AM CDT [facility] BILIRUBIN, DIRECT 0.1 < OR = 0.2 mg/dL 03/17/2025 4:12 AM CDT [facility] BILIRUBIN, INDIRECT 0.7 0.2 - 1.2 mg/dL (calc) 03/17/2025 4:12 AM CDT [facility] ALKALINE PHOSPHATASE 71 37 - 153 U/L 03/17/2025 4:12 AM CDT [facility] ALT 23 6 - 29 U/L 03/17/2025 4:12 AM CDT [facility] AST 26 10 - 35 U/L 03/17/2025 4:12 AM CDT [facility] GLOBULIN 2.9 1.9 - 3.7 g/dL (calc) 03/17/2025 4:12 AM CDT [facility] ALBUMIN/GLOBULIN RATIO 1.4 1.0 - 2.5 (calc) 03/17/2025 4:12 AM CDT [facility] Blood BLOOD SPECIMEN / Unknown [facility] / Unknown 03/16/2025 12:15 PM CDT 03/16/2025 12:15 PM CDT us Angel Luis Khan MD CHEMISTRY Final Result [facility] [address] [address], * (ABNORMAL) BASIC METABOLIC PANEL (03/16/2025 12:15 PM CDT) SODIUM 136 135 - 146 mmol/L 03/17/2025 4:12 AM CDT [facility] POTASSIUM 4.7 3.5 - 5.3 mmol/L 03/17/2025 4:12 AM CDT [facility] CARBON DIOXIDE 25 20 - 32 mmol/L 03/17/2025 4:12 AM CDT [facility] GLUCOSE 138(H) 65 - 99 mg/dL 03/17/2025 4:12 AM CDT [facility] Comment: Fasting reference interval For someone without known diabetes, a glucose value >125 mg/dL indicates that they may have diabetes and this should be confirmed with a follow-up test. CALCIUM 9.8 8.6 - 10.4 mg/dL 03/17/2025 4:12 AM CDT [facility] CREATININE 0.91 0.60 - 0.95 mg/dL 03/17/2025 4:12 AM CDT [facility] BUN/CREATININE RATIO SEE NOTE: 6 - 22 (calc) 03/17/2025 4:12 AM CDT [facility] Comment: Not Reported: BUN and Creatinine are within reference range. EGFR 63 > OR = 60 mL/min/1. 73m2 03/17/2025 4:12 AM CDT [facility] UREA NITROGEN (BUN) 18 7 - 25 mg/dL 03/17/2025 4:12 AM CDT [facility] ELECTROLYTE BALANCE 9 7 - 17 mmol/L (calc) 03/17/2025 4:12 AM CDT [facility] CHLORIDE 102 98 - 110 mmol/L 03/17/2025 4:12 AM CDT [facility] Blood BLOOD SPECIMEN / Unknown [facility] / Unknown 03/16/2025 12:15 PM CDT 03/16/2025 12:15 PM CDT us Angel Luis Khan MD CHEMISTRY Final Result [facility] [address] [address], * (ABNORMAL) XR DXA BONE DENSITY 2 SITES AXIAL (05/13/2023 9:23 AM GROUP SALES COORDINATOR) Anatomical Region Laterality Modality Spine, HIPS, HIPL, HIPR Other Impressions 05/18/2023 1:39 PM GROUP SALES COORDINATOR Osteopenia. RECOMMENDATIONS: The National Osteoporosis Foundation recommends [...] to assess therapeutic efficacy. May Jeff PA-C [facility] 05/18/2023 Narrative 05/18/2023 1:39 PM GROUP SALES COORDINATOR For Patients: Results are automatically released to your [employer] account once available, in compliance with federal regulations. This means that you may see your results before your provider has had a chance to review them. Please allow 2-3 business days for your provider to comment on the results. XR DXA Bone Mineral Density (BMD) EXAM LOCATION: [facility] [address] [facility] [address] PATIENT NAME: Talya Coon DATE OF : [...] two scanners are made by the same chief administrative officer. PROCEDURE: Dual-energy x-ray absorptiometry performed with routine [...] MEDICARE PART B HB ONLY [employer] [place] [employer] MR PB ONLY [employer] [place] [employer] HB ONLY MEDICARE PPS Care Teams Insurance Manager Relationship Specialty Start Date End Date Angel Luis Khan MD [address] [place] [address] PCP - General 06/17/06 [facility] [address] [place] [address] 03/16/25
[2025-03-29 16:29] VITALS: BP 122/82; PULSE 102; RESP 20; TEMP 36.6; O2SAT 96
--- NOTE | 2025-03-29 16:59 | ED.WEAKNESS ---
HPI - Weakness General Chief complaint: Weakness Stated complaint: weakness, from [facility] Time Seen by Provider: 03/29/25 16:19 History of Present Illness HPI Narrative: This 84-year-old female resides at home with her and comes in with him and her daughter. She had home health care including physical therapy and occupational therapy started last week. She finished treatment recently for urinary tract infection but has continued to have some incontinence. She had a home health aide visit today and was encouraged to see a doctor because of increasing weakness. She it does at times have enough strength to get up and pivot but over the past couple weeks she is becoming more more weak and this is what was noticed by the home health aide today. She went to a clinic appointment and was sent here. There was no labs or imaging done at the clinic appointment. She arrives here with normal vital signs and has borderline tachycardia. She is not reporting any pain. She does have some soreness at her bottom because of urinary incontinence. She has not had much to eat or drink over the past couple weeks. She does not give a specific reason why but states that she generally is not interested in food and drink. Related Data Home Medications ?Medication ?Instructions ?Recorded ?Confirmed atorvastatin 20 mg tablet 20 mg PO DAILY 03/30/23 03/29/25 latanoprost 0.005 % eye drops 1 drp ophthalmic (eye) HS 03/30/23 03/29/25 levothyroxine 112 mcg tablet 112 mcg PO DAILY 03/30/23 03/29/25 multivitamin (Multiple Vitamins 1 tab PO DAILY 03/30/23 03/29/25 tablet) pramipexole 0.25 mg tablet 0.125 mg PO HS 03/30/23 03/29/25 alendronate 70 mg tablet 70 mg PO 03/29/25 brimonidine 0.2 %-timolol 0.5 % 1 drp ophthalmic (eye) BID 03/29/25 03/29/25 eye drops sertraline 50 mg tablet mg PO 03/29/25 vibegron 75 mg tablet (Gemtesa) 75 mg PO DAILY 03/29/25 03/29/25 Allergies Allergy/AdvReac Type Severity Reaction Status Date / Time hydrocodone (From [facility] Allergy Mild Hives Verified 03/29/25 16:26 (hydrocodone-acetamin)) tramadol Allergy Mild Hives Verified 03/29/25 16:26 diltiazem (From [facility]) AdvReac Mild Verified 03/29/25 16:26 lisinopril AdvReac Mild Cough Verified 03/29/25 16:26 Review of Systems Status of ROS: Reports: 10 or more systems reviewed and unremarkable except as noted in History and below Narrative: Constitutional: No fevers. Eyes: No discharge. No vision changes. HENT: No congestion, no sore throat, no ear pain. Cardiovascular: No chest pain, no palpitations. Respiratory: No shortness of breath, no wheezes, no cough. Gastrointestinal: No abdominal pain, no vomiting, no diarrhea. Genitourinary: Urinary incontinence. Musculoskeletal: Normal range of motion. Skin: No rashes, no pruritis. Neurological: No dizziness, weakness, sensory change, speech change. Endo/Heme/Allergies: No bruising or bleeding. No polydipsia. Pysch: no suicidality, no anxiety, no insomnia. All other systems reviewed and are negative. [facility] Medical History Skin cancer (11/28/18) ?C44.90 - Unspecified malignant neoplasm of skin, unspecified (ICD-10) Obesity, unspecified (05/19/07) ?E66.9 - Obesity, unspecified (ICD-10) Irregular heart rhythm (02/25/15) ?I49.9 - Cardiac arrhythmia, unspecified (ICD-10) Esophageal reflux (05/19/07) ?K21.9 - Gastro-esophageal reflux disease without esophagitis (ICD-10) Urinary incontinence (09/28/12) ?R32 - Unspecified urinary incontinence (ICD-10) RLS (restless legs syndrome) (09/28/12) ?G25.81 - Restless legs syndrome (ICD-10) Mixed hyperlipidemia (05/19/07) ?E78.2 - Mixed hyperlipidemia (ICD-10) Impaired fasting glucose (07/26/07) ?R73.01 - Impaired fasting glucose (ICD-10) Essential hypertension (10/28/15) ?I10 - Essential (primary) hypertension (ICD-10) Coronary artery disease (01/29/15) ?I25.10 - Atherosclerotic heart disease of [place] coronary artery without angina pectoris (ICD-10) Adjustment disorder with depressed mood (05/19/07) ?F43.21 - Adjustment disorder with depressed mood (ICD-10) Acquired hypothyroidism (10/28/15) ?E03.9 - Hypothyroidism, unspecified (ICD-10) Non-insulin dependent diabetes mellitus Peptic ulcer disease ?K27.9 - Peptic ulcer, site unspecified, unspecified as acute or chronic, without hemorrhage or perforation (ICD-10) Osteopenia ?M85.80 - Other specified disorders of bone density and structure, unspecified site (ICD-10) Diverticulosis ?K57.90 - Diverticulosis of intestine, part unspecified, without perforation or abscess without bleeding (ICD-10) Atrial fibrillation ?I48.91 - Unspecified atrial fibrillation (ICD-10) Hypothyroidism ?E03.9 - Hypothyroidism, unspecified (ICD-10) Depression ?F32.A - Depression, unspecified (ICD-10) HTN (hypertension) ?I10 - Essential (primary) hypertension (ICD-10) [place] Sachs deformity, 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.822 - Other specified acquired deformities of left upper arm (ICD-10) Anterior shoulder dislocation (04/11/22) ?S43.016A - Anterior dislocation of unspecified humerus, initial encounter (ICD-10) Bankart lesion of left shoulder ?S43.492A - Other sprain of left shoulder joint, initial encounter (ICD-10) Rotator cuff tear, left ?M75.102 - Unspecified rotator cuff tear or rupture of left shoulder, not specified as traumatic (ICD-10) Tendinopathy of left biceps ?M67.922 - Unspecified disorder of synovium and tendon, left upper arm (ICD-10) Osteoarthritis of left knee ?M17.12 - Unilateral primary osteoarthritis, left knee (ICD-10) Restless legs ?G25.81 - Restless legs syndrome (ICD-10) Urinary incontinence ?R32 - Unspecified urinary incontinence (ICD-10) Adjustment disorder with depressed mood ?F43.21 - Adjustment disorder with depressed mood (ICD-10) Acquired hypothyroidism ?E03.9 - Hypothyroidism, unspecified (ICD-10) Impaired fasting glucose ?R73.01 - Impaired fasting glucose (ICD-10) Mixed hyperlipidemia ?E78.2 - Mixed hyperlipidemia (ICD-10) Essential hypertension ?I10 - Essential (primary) hypertension (ICD-10) Coronary artery disease ?I25.10 - Atherosclerotic heart disease of [place] coronary artery without angina pectoris (ICD-10) Surgical History Status post Sherrill fundoplication (without gastrostomy tube) procedure (03/15/08) ?Z98.890 - Other specified postprocedural states (ICD-10) 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) ?Z96.652 - Presence of left artificial knee joint (ICD-10) Status post Sherrill fundoplication (without gastrostomy tube) procedure ?Z98.890 - Other specified postprocedural states (ICD-10) Status post trigger finger release (03/31/23) ?Z98.890 - Other specified postprocedural states (ICD-10) History of open reduction and internal fixation (ORIF) procedure (03/31/23) ?Z98.890 - Other specified postprocedural states (ICD-10) History of phacoemulsification of cataract of left eye with intraocular lens implantation (10/10/08) ?Z98.42 - Cataract extraction status, left eye (ICD-10) ?Z96.1 - Presence of intraocular lens (ICD-10) History of YAG laser capsulotomy of lens of right eye (11/21/08) ?Z98.41 - Cataract extraction status, right eye (ICD-10) History of bladder surgery ?Z98.890 - Other specified postprocedural states (ICD-10) History of bunionectomy of both great toes ?Z98.890 - Other specified postprocedural states (ICD-10) History of hysterectomy (1992) ?Z90.710 - Acquired absence of both cervix and uterus (ICD-10) History of colectomy (~2007) ?Z90.49 - Acquired absence of other specified parts of digestive tract (ICD-10) H/O repair of right rotator cuff (~2013) ?Z98.890 - Other specified postprocedural states (ICD-10) 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 What is your current living situation?: I presently have a place to live Problems where you live: no known problems Problems where you live details: NA In the past 12 months, utilities in danger of being shut off: no In past 12 months, lack of transportation kept you from medical appts, meetings, work, or getting things needed for daily living: no In the past 12 mos, have been you worried that your food would run out before you had money to buy more?: never true In the past 12 mos, the food you bought just didn't last and you didn't have money to buy more?: never true Smoking Status: Never smoker Do you use any of these nicotine containing products: None Second hand tobacco smoke exposure: No How often do you have a drink containing alcohol: never How many standard drinks containing alcohol do you have on a typical day: 1 or 2 How often do you have six or more drinks on one occasion: Daily or almost daily AUDIT-C Alcohol total score: 4 Non-prescribed substance use: denies use Caffeine: No How often does anyone, including family, friends and others, physically hurt you: never How often does anyone, including family, friends and others, insult or talk down to you: never How often does anyone, including family, friends and others, threaten you with harm: never How often does anyone, including family, friends and others, scream or curse at you: never Exam Narrative: Exam Narrative: Constitutional: Well-developed, well-nourished, no acute distress. HEENT: Normocephalic, atraumatic. She has a dry mouth. Neck: Normal range of motion. Nontender. Supple. Heart: Regular. No murmurs. Borderline tachycardia. Intact distal pulses. Lungs: Clear to auscultation. No chest discomfort. No wheezes, rhonchi, or rales. Abdomen: Normal bowel sounds. Nontender. No rebound tenderness. Genitalia: Deferred. Back: No midline tenderness. Normal range of motion. Extremities: Normal range of motion. No injury. Skin: Intact. No rash. Warm. No erythema or pallor. Neurologic: No altered sensation. Generalized weakness. Alert and oriented. No unilateral weakness or facial asymmetry. Speech is normal. Psychiatric: No suicidality. No anxiety or depression. No insomnia. Nursing notes and vitals signs are reviewed. Const: Vital Signs, click to edit/add: Vital Signs - 24 hr 03/29/25 16:29 Temperature 97.9 F Pulse Rate [Pulse Oximeter] 102 H Respiratory Rate 20 Blood Pressure [Ri ght Upper Arm] 122/82 Pulse Oximetry 96 Oxygen Delivery Me thod Room Air Course Vital Signs Vital signs: Initial Vital Signs Temperature 97.9 F 03/29/25 16:29 Temperature Source Temporal Artery Scan 03/29/25 16:29 Pulse Rate 102 H 03/29/25 16:29 Respiratory Rate 20 03/29/25 16:29 Blood Pressure 122/82 03/29/25 16:29 Blood Pressure Mean 95 03/29/25 16:29 Pulse Oximetry 96 03/29/25 16:29 Oxygen Delivery Method Room Air 03/29/25 16:29 Vital Signs Temperature 97.9 F 03/29/25 16:29 Pulse Rate 102 H 03/29/25 16:29 Respiratory Rate 20 03/29/25 16:29 Blood Pressure 122/82 03/29/25 16:29 Pulse Oximetry 96 03/29/25 16:29 Oxygen Delivery Method Room Air 03/29/25 16:29 Temperature 97.9 F 03/29/25 16:29 Pulse Rate 102 H 03/29/25 16:29 Respiratory Rate 20 03/29/25 16:29 Blood Pressure 122/82 03/29/25 16:29 Pulse Oximetry 96 03/29/25 16:29 Oxygen Delivery Method Room Air 03/29/25 16:29 Medications Administered Medications: Discontinued Medications Generic Name Dose Route Start Last Admin Trade Name Freq PRN Reason Stop Dose Admin Dextrose/Sodium Chloride 1,000 mls @ 1,000 mls/hr 03/29/25 16:58 03/29/25 18:45 5 % Dextrose/0.45% Sod Chlor IV 03/29/25 17:57 Infused .Q1H ONE Infusion MDM - Weakness MDM Narrative Medical decision making narrative: This patient was sent here from clinic because of generalized weakness. She does have home health aide along with physical therapy and occupational therapy and these services were started about a week ago. She is able to get up and ambulate. She has not had much to drink or eat. An IV was established where she received a L of D5 half-normal saline. Labs are checked and these returned with reassuring results. Her urinalysis shows no sign of infection. The patient was able to get up and ambulate sufficiently and is okay to return home to continue these current plans. Lab Data Labs: Lab Results 03/29/25 03/29/25 03/29/25 Range/Units 16:58 17:20 17:30 WBC 9.04 (4.50-11.00) K/uL RBC 4.93 (4.00-5.20) m/uL Hgb 15.3 (12.0-16.0) gm/dL Hct 46.4 (33.0-51.0) % MCV 94 (80-100) fL MCH 31 (26-34) pg MCHC 33 (32-36) gm/dL RDW Coeff of Justin 12.5 (11.5-15.5) % Plt Count 201 (140-440) K/uL Neut % (Auto) 70.3 (42.0-72.0) % Lymph % (Auto) 17.0 L (20-44) % [place] % (Auto) 11.3 H (0.0-11.0) % Eos % (Auto) 1.0 (0.0-7.0) % Baso % (Auto) 0.3 (0.0-3.0) % Neut # (Auto) 6.35 (1.7-7.0) K/uL Lymph # (Auto) 1.50 (0.90-2.90) K/uL [place] # (Auto) 1.00 H (0.00-0.90) K/UL Eos # (Auto) 0.09 (0.00-0.50) K/uL Baso # (Auto) 0.03 (0.00-0.30) K/uL Abs Immat Gran (auto) 0.01 (0.00-0.30) K/uL Imm/Tot Granulo (auto) 0.1 % Sodium 135 (135-149) mmol/L Potassium 4.3 (3.6-5.1) mmol/L Chloride 102 (96-114) mmol/L Carbon Dioxide 27 (20-32) mmol/L Anion Gap 6 L (7-15) mEq/L BUN 26 (7-30) mg/dL Creatinine 1.0 (0.5-1.5) mg/dL Estimated GFR 56 ml/min Glucose 151 H (60-115) mg/dL Calcium 9.9 (8.4-10.6) mg/dL Urine Color Yellow (Yellow) Urine Appearance Clear (Clear) Urine pH 6.0 (5.0-8.5) Ur Specific [place] 1.020 (1.000-1.030) Urine Protein 1+ A (Negative) Urine Glucose (UA) Negative (Negative) Urine Ketones 1+ A (Negative) Urine Blood Negative (Negative) Urine Nitrite Negative (Negative) Urine Bilirubin 1+ A (Negative) Urine Urobilinogen 1.0 (0.2-1.0) Ur Leukocyte Esterase Negative (Negative) Urine RBC 0-2 (0-2) Urine WBC 0-2 (0-5) Ur Squamous Epith Cells Few (None-Few) Urine Bacteria Few A (None) POC Troponin I 0.02 (0.01-0.04) ng/ml ECG Data Attestation: I personally reviewed and interpreted this ECG as follows: Interpretation: Normal sinus rhythm. Rate is 91 beats per minute. There are no ST or T-wave abnormalities. Discharge Plan Discharge Clinical Impression: Weakness Patient Disposition: Home w/ Parent or Adult Condition: Stable Additional Instructions: Continue current plans with home health aide and physical therapy and occupational therapy. Continue current medications. Follow up with primary physician next week for ongoing management and vaccinations. Prescriptions: No Action multivitamin [Multiple Vitamins] Tablet 1 tab PO DAILY atorvastatin 20 mg tablet 20 mg PO DAILY latanoprost 0.005 % drops 1 drp ophthalmic (eye) HS Patient Comments: PLACE 1 DROP INTO THE RIGHT EYE ONCE DAILY AT BEDTIME levothyroxine 112 mcg tablet 112 mcg PO DAILY pramipexole 0.25 mg tablet 0.125 mg PO HS alendronate 70 mg tablet 70 mg PO sertraline 50 mg tablet PO brimonidine-timolol 0.2-0.5 % drops 1 drp ophthalmic (eye) BID Gemtesa 75 mg tablet 75 mg PO DAILY Follow Up/Referrals: Angel Luis Khan MD [Primary Care Provider, Family Practice] Stand Alone Forms: [facility] Info Instructions
[2025-03-29 17:33] LABS: Hematocrit* 46.4 % (33.0-51.0); Hemoglobin* 15.3 gm/dL (12.0-16.0); Immature Granulocytes Abs Auto 0.01 K/uL (0.00-0.30); Immature Granulocytes Pct Auto 0.1 %; Mean Corpuscular HGB Conc 33 gm/dL (32-36); Mean Corpuscular Hemoglobin 31 pg (26-34); Mean Corpuscular Volume 94 fL (80-100); RDW Coefficient of Variation % 12.5 % (11.5-15.5); Red Blood Count* 4.93 m/uL (4.00-5.20); White Blood Count* 9.04 K/uL (4.50-11.00)
[2025-03-29 17:37] LABS: Lymphocytes Absolute Auto 1.50 K/uL (0.90-2.90); Slide Review Reflex No
[2025-03-29 17:43] LABS: Appearance Urine Clear (Clear)
[2025-03-29 17:44] LABS: Chloride* 102 mmol/L (96-114)
[2025-03-29 17:45] LABS: Potassium* 4.3 mmol/L (3.6-5.1); Sodium* 135 mmol/L (135-149)
[2025-03-29 17:47] LABS: Blood Urea Nitrogen* 26 mg/dL (7-30); Creatinine* 1.0 mg/dL (0.5-1.5); Estimated Glomerular Filt Rate 56 ml/min
[2025-03-29 17:48] LABS: Anion Gap 6 mEq/L (7-15); Calcium* 9.9 mg/dL (8.4-10.6); Carbon Dioxide* 27 mmol/L (20-32); Glucose* 151 mg/dL (60-115)
[2025-03-29] MEDS: 5 % DEXTROSE/0.45% SOD CHLOR 1,000 ML 1000 ML IV (17:50)
[2025-03-29 17:51] LABS: Troponin, Point-of-Care* 0.02 ng/ml (0.01-0.04)
== END 2025-03-29 19:24 | disposition home or self-care (01) ==
PROVIDERS: Emergency Provider Emergency Medicine Emergency Medical Services; PCP Family Medicine
DX: R53.1 Weakness (principal); R32 Unspecified urinary incontinence; R00.0 Tachycardia, unspecified
CPT/HCPCS: 36415; 80048; 81001; 84484; 85025; 87086; 93005; 96360; 99284; J7799

== ENCOUNTER 2025-04-07 11:55 | Inpatient (IN) | payer MEDICARE, BC, SELFPAY ==
[2025-04-07] VITALS (13 sets, daily range): BP systolic 107–176; BP diastolic 74–119; PULSE 78–112; RESP 12–24; TEMP 35.8–36.6; O2SAT 92–96; BMI 24.0
--- OUTSIDE RECORDS SUMMARY | 2025-04-07 11:57 | XMS_ITS | Clinical Summary ---
Author Organization [employer] [facility] Address [address] [place] [id number] Care Team Providers Care Burling And Joining Supervisor Name Role Phone Angel Luis Khan MD Primary Care Provider [facility] Care, Branch Unavailable [phone] Allergies Active Allergy Reactions Criticality Noted Date Comments Diltiazem Other - Describe In Comment Field 01/29/2015 Patient can't recall specifically, but says it caused a problem long ago. Hydrocodone-Acetaminop hen Hives 01/06/2017 Lisinopril Intolerance-Can't Take 07/26/2007 cough Tramadol Hives 01/06/2017 Medications MULTIVITAMIN TAB take 1 po daily 10/05/19 09 Active latanoprost (XALATAN) 0.005 % ophthalmic solution PLACE 1 DROP INTO THE RIGHT EYE ONCE DAILY AT BEDTIME. 04/05/20 21 Active atorvastatin (LIPITOR) 20 mg tabletIndications: Mixed hyperlipidemia Take 1 Tablet (20 mg) by mouth once daily. 90 Tablet 3 05/19/20 24 Active pramipexole (MIRAPEX) 0.25 mg tabletIndications: RLS (restless legs syndrome) TAKE 0.5 TABLETS BY MOUTH ONCE DAILY AT BEDTIME. 45 Tablet 3 05/19/20 24 Active alendronate (FOSAMAX) 70 mg tabletIndications: Osteopenia, unspecified location Take 1 Tablet (70 mg) by mouth once a week in the morning. Take on empty stomach with full glass of water. Do not lie down for 1 hr. 12 Tablet 3 05/19/20 24 Active calcium carbonate-vitamin D3, 600 mg-400 unit, 600 mg-10 mcg (400 unit) tabletIndications: Vitamin D insufficiency Take 1 Tablet by mouth two times daily with meals. 200 Tablet 3 05/20/20 24 Active cyanocobalamin 500 mcg tabletIndications: Vitamin B12 deficiency 1 p.o. Wednesday, Wednesday, Wednesday. 90 Tablet 3 08/17/19 25 Active levothyroxine 88 mcg tabletIndications: Acquired hypothyroidism Take 1 Tablet (88 mcg) by mouth before breakfast. 60 Tablet 5 08/17/19 25 Active brimonidine-timolo L (COMBIGAN) 0.2-0.5 % ophthalmic solution Place 1 Drop into right eye two times daily. 12/23/19 25 Active vibegron (GEMTESA) 75 mg tabletIndications: Urinary incontinence, unspecified type Take 1 Tablet (75 mg) by mouth once daily. Swallow tablet whole. May be crushed and mixed in applesauce. Follow with glass of water. 30 Tablet 11 03/16/20 25 Active sertraline (ZOLOFT) 50 mg tabletIndications: Depression, unspecified depression type 1/2 tab oral daily for one week, then one daily. 30 Tablet 1 03/16/20 25 Active polyethylene glycoL (MIRALAX) 17 gram/scoop powderIndications: Chronic constipation Mix 1 scoop (17 g) in liquid then take by mouth once daily. 510 g 5 04/02/20 25 Active sennosides (SENNA) 8.6 mg tabletIndications: Chronic constipation Take 2 Tablets (17.2 mg) by mouth once daily. Increase to 4 tablets daily after 1 week if necessary. Hold for loose stools. 200 Tablet 5 04/02/20 25 Active mineral oil (Fleet Mineral Oil Enema) enema Insert 133 mL rectally one time if needed (constipatio n). 04/04/20 25 Active apixaban (ELIQUIS) 5 mg tabletIndications: Acute deep vein thrombosis (DVT) of distal vein of left lower extremity (HC) 2 tablets p.o. twice daily for 7 days, then 1 tablet twice daily indefinitely . 60 Tablet 11 04/05/20 25 Active citalopram (CELEXA) 20 mg tabletIndications: Adjustment disorder with depressed mood Take 1 Tablet (20 mg) by mouth once daily in the morning. 90 Tablet 3 05/19/20 24 025 Discontinu ed(*Med complete/R egimen complete/L evel of care change) metoprolol tartrate (LOPRESSOR) 25 mg tabletIndications: Tachycardia TAKE 0.5 TABLETS BY MOUTH TWICE DAILY 90 Tablet 3 05/19/20 24 025 Discontinu ed(*Med complete/R egimen complete/L evel of care change) trospium (SANCTURA) 20 mg tabletIndications: Urinary incontinence, unspecified type Take 1 Tablet (20 mg) by mouth two times daily before meals. 180 Tablet 3 07/18/19 25 025 Discontinu ed(*Med complete/R egimen complete/L evel of care change) cephalexin 500 mg capsuleIndications :urinary tract infection Take 1 Capsule (500 mg) by mouth two times daily for 7 days. 14 Capsule 03/17/20 25 025 Active Problems Problem Noted Date Diagnosed Date Acute deep vein thrombosis ( DVT) of distal vein of left lower extremity 04/05/2025 Type 2 diabetes mellitus wit hout complication, [...] Encounters Date Type Department Care Team Description 04/06/2025 1:00 PM HYDRAULIC RUBBISH COMPACTOR MECHANIC Home Care Visit [facility] [address] [place] [address] Salina Littlejohn, CARYL PT - HOME VISIT 04/06/2025 9:45 AM HYDRAULIC RUBBISH COMPACTOR MECHANIC Orders Only [facility] [address] [place] [address] Lab, [place] Lab 04/05/2025 3:15 PM HYDRAULIC RUBBISH COMPACTOR MECHANIC Ancillary Procedure [facility] [address] [place] [address] Arrived 04/05/2025 3:00 PM HYDRAULIC RUBBISH COMPACTOR MECHANIC Ancillary Procedure [facility] [address] [place] [address] Arrived 04/05/2025 2:05 PM HYDRAULIC RUBBISH COMPACTOR MECHANIC Office Visit [facility] [address] [place] [address] Angel Luis Khan MD ER Follow up ([facility], 03/29/2025, dehydration); Follow Up (Home care nurse - constipation - discuss x-ray ); Leg Swelling (Lower left leg swelling, bruise above left knee); Weight (Losing weight, no appetite ) 04/05/2025 9:30 AM HYDRAULIC RUBBISH COMPACTOR MECHANIC Home Care Visit [facility] [address] [place] [address] Felecia Baird FELLED SEAM OPERATOR - HOME VISIT 04/05/2025 Travel 04/05/2025 Home Care Visit [facility] [address] [place] [address] Idalmis Cox, RN CARE COORDINATION 04/04/2025 2:00 PM HYDRAULIC RUBBISH COMPACTOR MECHANIC Home Care Visit [facility] [address] [place] [address] Idalmis Cox, RN SN - HOME VISIT 04/04/2025 Home Care Visit [facility] [address] [place] [phone] Charles Brizuela, OT CARE COORDINATION 04/03/2025 3:00 PM HYDRAULIC RUBBISH COMPACTOR MECHANIC Home Care Visit [facility] [address] [facility] [address] Salina Littlejohn, PT PT - HOME VISIT 04/03/2025 11:00 AM HYDRAULIC RUBBISH COMPACTOR MECHANIC Home Care Visit [facility] [address] [place] [phone] Isamar Ford ANNA OT - HOME VISIT 04/02/2025 Telephone [facility] [address] [place] [address] Angel Luis Khan MD Follow Up 04/02/2025 Home Care Visit [facility] [address] [place] [phone] Idalmis Cox, RN CARE COORDINATION 04/02/2025 Home Care Visit [facility] [address] [place] [phone] Idalmis Cox, RN CARE COORDINATION 03/31/2025 3:00 PM HYDRAULIC RUBBISH COMPACTOR MECHANIC Home Care Visit [facility] [address] [place] [phone] Idalmis Cox, RN SN - INITIAL ASSESSMENT 03/30/2025 10:00 AM HYDRAULIC RUBBISH COMPACTOR MECHANIC Home Care Visit [facility] [address] [place] [phone] Isamar Ford ANNA OT - HOME VISIT 03/29/2025 2:45 PM HYDRAULIC RUBBISH COMPACTOR MECHANIC Office Visit [facility] [address] [place] [address] Jeanette Clayton MD Extremity Weakness (since yesterday not eating for a couple of days ) 03/29/2025 11:00 AM HYDRAULIC RUBBISH COMPACTOR MECHANIC Home Care Visit [facility] [address] [place] [phone] Salina Littlejohn, PT PT - HOME VISIT 03/29/2025 9:00 AM HYDRAULIC RUBBISH COMPACTOR MECHANIC Home Care Visit [facility] [address] [place] [phone] Felecia Baird FELLED SEAM OPERATOR - HOME VISIT 03/29/2025 Travel 03/29/2025 Home Care Visit [facility] [address] [place] [phone] Charles Brizuela, OT CARE COORDINATION 03/27/2025 4:00 PM HYDRAULIC RUBBISH COMPACTOR MECHANIC Home Care Visit [facility] [address] [place] [phone] Isamar Ford COTA OT - HOME VISIT 03/26/2025 12:15 PM HYDRAULIC RUBBISH COMPACTOR MECHANIC Home Care Visit [facility] [address] [place] [phone] Salina Littlejohn, PT PT - HOME VISIT 03/23/2025 12:45 PM CDT Home Care Visit [facility] [address] [place] [phone] Charles Brizuela, OT OT - INITIAL ASSESSMENT 03/22/2025 12:30 PM CDT Home Care Visit [facility] [address] [place] [phone] Salina Littlejohn, PT PT - OASIS START OF CARE 03/22/2025 Telephone [facility] [address] [place] [address] Salina Littlejohn, PT Home Care (requesting ongoing homecare orders) 03/22/2025 Plan of Care Documentation [facility] [address] [place] [phone] 03/19/2025 Home Care Visit [facility] [address] [facility] [address] Dasha Segal, RN CARE COORDINATION 03/19/2025 Home Care Visit [facility] [address] [facility] [address] Dasha Segal, RN CARE COORDINATION 03/17/2025 Orders Only [facility] [address] [place] [address] Angel Luis Khan MD <No scans attached> 03/16/2025 11:20 AM CDT Office Visit [facility] [address] [place] [address] Angel Luis Khan MD Urinary Problem (Incontinence ); Rectal Problem (Incontinence ); Concerns (Dehydration ) 03/16/2025 Travel 03/14/2025 Nurse Triage [facility] Centralized Nurse Triage Angel Luis Khan MD [...] VACCINE SPIKEVAX (M ODERNA 50MCG/0.5ML) 12YO+ PFS 04/05/2025,04/13/2024,08/19/2023,03/10 COVID-19 vaccine (Pfizer-Bio NTech 30mcg/0.3mL) 12YO+ BIVALENT PF, MDV 09/15/2022,02/18/2022 COVID-19 vaccine (Pfizer-Bio NTech 30mcg/0.3mL) 12YO+ DURAN-SUCROSE PF, MDV 09/17/2021 COVID-19 vaccine (Pfizer-Bio NTech 30mcg/0.3mL) PF, MDV 04/07/2021 HepA-HepB (Twinrix) 05/13/2007,12/06/2006,200611/28/2006 Influenza A (H1N1), Inactivated 06/06/2009 Influenza, High-dose Inactivated 01/30/2015 Influenza, IIV3 (Age >=3 years) 05/11/2012 Influenza, Inactivated AIIV4 (Age 65+ Years) Preserv Free 03/10/2023,03/06/2022,02/19/2021 Influenza, Inactivated IIV3 (Age 65+ Years) Preserv Free 04/05/2025,04/13/2024,02/03/2019,02/14 Pneumococcal Conj 20-valent (Prevnar 20) 05/08/2022 Pneumococcal [...] have a drink containing alcohol ? 0 04/05/2025 Average Number of Drinks Not on file 025 Frequency of Binge Drinking Not on file 03/24 Financial Resource Strain Answer Date R ecorded [...] on file Legal Sex Female 6:21 AM HYDRAULIC RUBBISH COMPACTOR MECHANIC Gender Identity Not on file Sexual Orientation Not on file Obstetrics History Para Term AB IAB SAB Ectopic Multiple Livin g Live Births 2 2 2 Date Outcome GA Total Labor Labor/2nd/3rd Weight Sex Type Anes PTL Dinora A1 A5 Name Clin Term Term Last Filed Vital Signs Vital Sign Reading Time Taken Comments Blood Pressure 103/70 04/05/2025 2:10 PM HYDRAULIC RUBBISH COMPACTOR MECHANIC Pulse 84 04/05/2025 2:10 PM HYDRAULIC RUBBISH COMPACTOR MECHANIC Temperature 36.8 C (98.3 F) 04/06/2025 1:07 PM HYDRAULIC RUBBISH COMPACTOR MECHANIC Respiratory Rate 16 04/04/2025 3:00 AM HYDRAULIC RUBBISH COMPACTOR MECHANIC Oxygen Saturation 95% 04/05/2025 2:10 PM HYDRAULIC RUBBISH COMPACTOR MECHANIC Inhaled Oxygen Concentration - - Weight 63.8 kg (140 lb 9.6 oz) 04/05/2025 2:10 P M HYDRAULIC RUBBISH COMPACTOR MECHANIC Height 154.9 cm (5' 1) 04/04/2025 3:00 AM HYDRAULIC RUBBISH COMPACTOR MECHANIC Body Mass Index 26.57 04/04/2025 3:00 AM HYDRAULIC RUBBISH COMPACTOR MECHANIC Plan of Treatment Upcoming Encounters Date Type Department Care Team (Late st Contact Info) Description 04/10/2025 5:30 AM HYDRAULIC RUBBISH COMPACTOR MECHANIC Appointment [facility] [address] [place] [address] Charles Brizuela, OT [address], [place] [address] 04/10/2025 11:00 AM HYDRAULIC RUBBISH COMPACTOR MECHANIC Appointment [facility] [address] [place] [phone] Salina Littlejohn, PT [address] [place] [address] 04/11/2025 4:00 AM HYDRAULIC RUBBISH COMPACTOR MECHANIC Appointment [place] [address] [place] [phone] Kellen Watson RN 04/12/2025 10:45 AM HYDRAULIC RUBBISH COMPACTOR MECHANIC Appointment [address] [address] Felecia Baird [address] [place] [address] 04/13/2025 2:05 PM HYDRAULIC RUBBISH COMPACTOR MECHANIC Office Visit [facility] [address] [place] [address] Angel Luis Khan MD [address] [place] [address] 04/17/2025 3:00 AM HYDRAULIC RUBBISH COMPACTOR MECHANIC Appointment [address] [phone] Salina Littlejohn, PT [address] [place] [address] 04/18/2025 4:00 AM HYDRAULIC RUBBISH COMPACTOR MECHANIC Appointment [address] [phone] Kellen Watson RN 04/19/2025 10:45 AM HYDRAULIC RUBBISH COMPACTOR MECHANIC Appointment [address] [phone] Felecia Baird [address] [place] [address] 04/24/2025 3:00 AM HYDRAULIC RUBBISH COMPACTOR MECHANIC Appointment [address] [phone] Salina Littlejohn, PT [address] [place] [address] 04/25/2025 4:00 AM HYDRAULIC RUBBISH COMPACTOR MECHANIC Appointment [address] [phone] Kellen Watson, SUSANA 04/26/2025 10:45 AM HYDRAULIC RUBBISH COMPACTOR MECHANIC Appointment [address] [phone] Felecia Baird J [address] [address] 05/01/2025 3:00 AM HYDRAULIC RUBBISH COMPACTOR MECHANIC Appointment [address] [address] Salina Littlejohn, PT [address] [place] [address] 05/02/2025 4:00 AM HYDRAULIC RUBBISH COMPACTOR MECHANIC Appointment [address] [phone] Kellen Watson, SUSANA 05/09/2025 4:00 AM HYDRAULIC RUBBISH COMPACTOR MECHANIC Appointment [address] [phone] Kellen Watson, SUSANA 05/16/2025 4:00 AM HYDRAULIC RUBBISH COMPACTOR MECHANIC Appointment [address] [phone] Kellen Watson, SUSANA 06/08/2025 12:00 PM HYDRAULIC RUBBISH COMPACTOR MECHANIC Office Visit [address] [phone] Bessy Vázquez PA [address] [place] [address] Health Maintenance Due Date Last Done Comments RSV vaccine for adults or (1 - 1-dose 75+ series) 2016 BMI (ht and wt on same day) [...] Completed 2022, 02/07/2019, 10/26/2013, Additional history exists Influenza Vaccine Completed 04/05/2025, , 03/10/2023, Additional history exists Procedures Procedure Name Priority Date/Time Associated Diagnosis Comments US VENOUS LOWER EXTREMITY LEFT STAT 04/05/2025 3:51 PM HYDRAULIC RUBBISH COMPACTOR MECHANIC Left leg swelling XR ABDOMEN 2 VIEW FLAT AND UPRIGHT OR DECUBITUS Routine 04/05/2025 3:28 PM HYDRAULIC RUBBISH COMPACTOR MECHANIC Constipation, acute URINALYSIS MACROSCOPIC - [facility] ONLY POC DIP ([facility]) Routine 03/16/2025 4:40 PM CDT Dysuria URINE CULTURE Routine 03/16/2025 4:40 PM CDT Dysuria URINALYSIS MICROSCOPIC Routine 03/16/2025 4:40 PM CDT Dysuria HEPATIC FUNCTION PANEL Routine 03/16/2025 12:15 PM CDT Weight loss BASIC METABOLIC PANEL Routine 03/16/2025 12:15 PM CDT Weight loss XR DXA BONE DENSITY 2 SITES AXIAL Routine 05/13/2023 9:23 AM HYDRAULIC RUBBISH COMPACTOR MECHANIC Asymptomatic postmenopausal state from Last 3 Months or Most Recently Relevant to Health Maintenance Results * US VENOUS LOWER EXTREMITY LEFT (04/05/2025 3:51 PM HYDRAULIC RUBBISH COMPACTOR MECHANIC) Anatomical Region Laterality Modality LEGS, LEG L, Abdomen Ultrasound 04/05/2025 3:57 PM HYDRAULIC RUBBISH COMPACTOR MECHANIC Impressions 04/05/2025 3:57 PM HYDRAULIC RUBBISH COMPACTOR MECHANIC Extensive DVT left lower extremity. Dr. Khan aware. Dictated by Grey Sales MD @ 04/05/2025 3:57:57 PM (Electronically Signed) Narrative 04/05/2025 3:57 PM HYDRAULIC RUBBISH COMPACTOR MECHANIC For Patients: As a result of the Cures Act, medical imaging exams and procedure reports are released immediately into your electronic medical record. You may view this report before your referring provider. If you have questions, please contact your health care provider. INDICATION: Left leg swelling COMPARISON: None. TECHNIQUE: A compression venous ultrasound exam was performed of the left lower extremity using malone-scale imaging, color Doppler and spectral Doppler analysis. FINDINGS: Hypoechoic noncompressible clot is present within the left common femoral vein, deep femoral vein, femoral vein, popliteal vein and posterior tibial veins. Clot is also present at the saphenofemoral junction. Limited imaging of the contralateral groin demonstrates a normal spectral waveform and color Doppler venous blood flow within the right common femoral vein. Procedure Note Grey Sales MD - 04/05/2025 For Patients: As a result of the Cures Act, medical imagingexams and procedure reports are released immediately into your electronicmedical record. You may view this report before your referring provider.If you have questions, please contact your health care provider. INDICATION: Left leg swelling COMPARISON: None. TECHNIQUE: A compression venous ultrasound exam was performed of the left lowerextremity using malone-scale imaging, color Doppler and spectral Doppleranalysis. FINDINGS: Hypoechoic noncompressible clot is present within the left common femoralvein, deep femoral vein, femoral vein, popliteal vein and posterior tibialveins. Clot is also present at the saphenofemoral junction. Limited imaging of the contralateral groin demonstrates a normal spectralwaveform and color Doppler venous blood flow within the right commonfemoral vein. IMPRESSION: Extensive DVT left lower extremity. Dr. Khan aware. Dictated by Grey Sales MD @ 04/05/2025 3:57:57 PM (Electronically Signed) us Angel Luis Khan MD US Final Result * XR ABDOMEN 2 VIEW FLAT AND UPRIGHT OR DECUBITUS (04/05/2025 3:28 PM HYDRAULIC RUBBISH COMPACTOR MECHANIC) Anatomical Region Laterality Modality Abdomen Computed Radiogr aphy 04/05/2025 3:59 PM HYDRAULIC RUBBISH COMPACTOR MECHANIC Narrative 04/05/2025 3:59 PM HYDRAULIC RUBBISH COMPACTOR MECHANIC For Patients: As a result of the Cures Act, medical imaging exams and procedure reports are released immediately into your electronic medical record. You may view this report before your referring provider. If you have questions, please contact your health care provider. Indication: Constipation, acute Technique: Abdomen 2 view. Comparison: None. Findings: Postop changes to the soft tissues of the lower pelvis. Excess stool throughout the colon with gaseous distention of the splenic flexure. No small bowel obstruction. Elevation left hemidiaphragm, chronic. Impression: Excess colonic stool consistent with constipation. Dictated by Grey Sales MD @ 04/05/2025 3:59:02 PM (Electronically Signed) Procedure Note Grey Sales MD - 04/05/2025 For Patients: As a result of the Cures Act, medical imagingexams and procedure reports are released immediately into your electronicmedical record. You may view this report before your referring provider.If you have questions, please contact your health care provider. Indication: Constipation, acute Technique: Abdomen 2 view. Comparison: None. Findings: Postop changes to the soft tissues of the lower pelvis. Excess stoolthroughout the colon with gaseous distention of the splenic flexure. Nosmall bowel obstruction. Elevation left hemidiaphragm, chronic. Impression: Excess colonic stool consistent with constipation. Dictated by Grey Sales MD @ 04/05/2025 3:59:02 PM (Electronically Signed) us Angel Luis Khan MD GENERAL IMAGING Final Result * (ABNORMAL) POCT Urinalysis Dipstick Only (03/16/2025 4:40 PM CDT) Pathologist [facility] SPECIFIC GRAVITY 1.020 1.001 - 1.035 03/16/2025 5:09 PM CDT [facility] PROTEIN NEGATIVE NEGATIVE 03/16/2025 5:09 PM CDT [facility] GLUCOSE NEGATIVE NEGATIVE 03/16/2025 5:09 PM CDT [facility] KETONES NEGATIVE NEGATIVE 03/16/2025 5:09 PM CDT [facility] BILIRUBIN NEGATIVE NEGATIVE 03/16/2025 5:09 PM CDT [facility] OCCULT BLOOD TRACE(A) NEGATIVE 03/16/2025 5:09 PM CDT [facility] NITRITE POSITIVE(A) NEGATIVE 03/16/2025 5:09 PM CDT [facility] PH 6.0 5.0 - 8.0 03/16/2025 5:09 PM CDT [facility] LEUKOCYTE ESTERASE 1+(A) NEGATIVE 03/16/2025 5:09 PM CDT [facility] Urine URINE SPECIMEN / Unknown Non-Blood / Unknown 03/16/2025 4:40 PM CDT 03/16/2025 5:00 PM CDT Angel Luis Khan MD URINE Final Result [facility] [address] [address], [place] [phone] [facility] [address] [place] [address], [place] [phone] * (ABNORMAL) URINALYSIS MICROSCOPIC (03/16/2025 4:40 PM CDT) Pathologist [facility] RBC 6-10(A) 0-2, None Seen /HPF 03/17/2025 1:08 AM CDT [facility] WBC >100(A) 0-2, 3-5, None Seen /HPF 03/17/2025 1:08 AM CDT [facility] BACTERIA Many(A) None Seen, Rare, Few Bacteria/ HPF 03/17/2025 1:08 AM CDT [facility] EPITHELIAL CELLS Few None Seen, Few Epi/HPF 03/17/2025 1:08 AM CDT [facility] HYALINE CASTS 3-5 0-2, 3-5 /LPF 03/17/2025 1:08 AM CDT [facility] CALCIUM OXALATE CRYSTALS Present(A) (none) 03/17/2025 1:08 AM CDT [facility] Urine URINE SPECIMEN / Unknown Non-Blood / Unknown 03/16/2025 4:40 PM CDT 03/16/2025 5:00 PM CDT us Angel Luis Khan MD URINE Final Result [facility] [address] [place] [address], * (ABNORMAL) URINE CULTURE (03/16/2025 4:40 PM CDT) CULTURE RESULT(A) 03/21/2025 6:52 AM CDT [facility] CULTURE >100,000 CFU/mL Escherichia coli 03/21/2025 6:52 AM CDT [facility] CULTURE >100,000 CFU/mL Aerococcus urinae 03/21/2025 6:52 AM CDT [facility] Comment: Aerococcus urinae are usually susceptible to B-lactams and vancomycin. Resistance has been described to the fluoroquinolones. In vivo susceptibility for A. urinae and Trimethoprim-sulfamethoxazole depends on patient's urinary folate concentration. In vitro testing cannot accurately determine in vivo susceptibility for A. urinae. CULTURE <10,000 CFU/mL Multiple organisms probable contaminants 03/21/2025 6:52 AM CDT [facility] Urine URINE SPECIMEN / Unknown [...] Angel Luis Khan MD MICROBIOLOGY Final Result [facility] [address] [place] [address], * HEPATIC FUNCTION PANEL (03/16/2025 12:15 PM [...] 12:15 PM CDT 03/16/2025 12:15 PM CDT Angel Luis Khan MD CHEMISTRY Final Result [facility] [address] [address], * (ABNORMAL) BASIC METABOLIC PANEL (03/16/2025 12:15 [...] Khan MD CHEMISTRY Final Result [facility] [address] [address], * (ABNORMAL) XR DXA BONE DENSITY 2 SITES AXIAL (05/13/2023 9:23 AM HYDRAULIC RUBBISH COMPACTOR MECHANIC) Anatomical Region Laterality Modality Spine, HIPS, HIPL, HIPR Other Impressions 05/18/2023 1:39 PM HYDRAULIC RUBBISH COMPACTOR MECHANIC Osteopenia. RECOMMENDATIONS: The National Osteoporosis Foundation recommends [...] to assess therapeutic efficacy. May Jeff PA-C [facility] 05/18/2023 Narrative 05/18/2023 1:39 PM HYDRAULIC RUBBISH COMPACTOR MECHANIC For Patients: Results are automatically released to your [employer] ([employer]) account once available, in compliance with federal regulations. This means that you may see your results before your provider has had a chance to review them. Please allow 2-3 business days for your provider to comment on the results. XR DXA Bone Mineral Density (BMD) EXAM LOCATION: [facility] [address] [facility] [id number] PATIENT NAME: Talya Coon DATE OF : [...] two scanners are made by the same advanced practice professional. PROCEDURE: Dual-energy x-ray absorptiometry performed with routine [...] MEDICARE PART B HB ONLY [facility] [place] [facility] [place] [facility] HB ONLY MEDICARE PPS Advance Directives * Full Code (Latest Code Status on File) Date Activated Date Inactivated Comments 04/05/2025 5:05 AM Care Teams Burling And Joining Supervisor Relationship Specialty Start Date End Date Angel Luis Khan MD [address] [place] [address] PCP - General 06/17/06 [facility] [address] [place] [address] 03/16/25
--- NOTE | 2025-04-07 12:41 | CRLHL7_ITS ---
For Patients: As a result of the 21st Century Cures Act, medical imaging exams and procedure reports are released immediately into your electronic medical record. You may view this report before your referring provider. If you have questions, please contact your health care provider. INDICATION: ABD PAIN. RECENT CONSTIPATION. TECHNIQUE: CT abdomen and pelvis acquired with 69 cc Isovue 370 IV contrast. COMPARISON: December 2014. FINDINGS: Lower chest: Motion. Coronary artery calcifications. ABDOMEN: Liver: Normal enhancement. Focal fatty infiltration adjacent to the gallbladder. Gallbladder and biliary: Normal gallbladder without radiopaque stone. Normal caliber bile ducts. Spleen: Normal size and enhancement. Pancreas: Normal enhancement without peripancreatic inflammatory changes or ductal dilatation. Adrenal glands: Normal adrenal glands. Kidneys and ureters: Normal enhancement. No radio-opaque calculi. No hydroureteronephrosis. Left renal cyst. Subcentimeter hypodensities are too small to characterize however statistically represent cysts. GI tract: Changes of fundoplication. Normal caliber small bowel loops. Appendix is not definitively visualized. Large bowel is distended/borderline dilated multiple large stool balls, and air-fluid levels. No adjacent wall thickening or inflammatory stranding. Colonic diverticulosis without diverticulitis. Associated change in caliber at the junction of the descending colon with the sigmoid at which point there is a moderate-sized stool ball. Vascular structures: Normal caliber abdominal aorta. Lymph nodes: No lymphadenopathy in the abdomen or pelvis by size criteria. Peritoneum: No free air, free fluid, or focal drainable fluid collection. PELVIS: Genitourinary system: Normal urinary bladder. Hysterectomy. SKELETAL STRUCTURES AND SOFT TISSUES: Tiny fat containing umbilical hernia. Changes of lower pelvic mesh hernia multilevel spondylosis. New from 2015, age-indeterminate compression deformity of T9. Favoring chronic origin. Repair. IMPRESSION: Large bowel is distended/borderline dilated multiple large stool balls, and air-fluid levels. No adjacent wall thickening or inflammatory stranding. Colonic diverticulosis without diverticulitis. Associated change in caliber at the junction of the descending colon with the sigmoid at which point there is a moderate-sized stool ball. This may be causing partial obstruction. Please note that all CT scans at this facility use dose modulation, iterative reconstruction, and/or weight-based dosing when appropriate to reduce radiation dose to as low as reasonably achievable. Dictated by Grey Stokes MD @ 04/07/2025 1:38:22 PM (Electronically Signed)
--- NOTE | 2025-04-07 12:43 | ED.ABDPAIN ---
HPI - Abdominal Pain General Chief Complaint: Abdominal Pain Stated Complaint: Weak,vomiting Time Seen by Provider: 04/07/25 11:56 History of Present Illness HPI narrative: This 84-year-old female comes in with abdominal distension and pain over the past several days. She was at a clinic appointment and started on an anticoagulant for deep venous thrombus. She also was recently treated for urinary tract infection and those symptoms have apparently resolved. I did see here in the emergency department here 8 days ago at which time she did not have any abdominal pain. She does have a home health aide and physical therapy and occupational therapy. The home health aide has spent time on a couple different visits to help with complications of constipation by DIS impacting her bowel. X-ray at clinic which is not available to me here and was done a couple days ago did show that the rectum seem to be rather clear of stool but upstream from there there was yet a fair amount of stool. When I saw her a week ago she did not have any abdominal pain. She was recommended to take magnesium citrate to help with constipation but she has not done so. Her states that he feels she would not be able to do tolerate this orally. Related Data Home Medications ?Medication ?Instructions ?Recorded ?Confirmed atorvastatin 20 mg tablet 20 mg PO DAILY 03/30/23 04/07/25 latanoprost 0.005 % eye drops 1 drp ophthalmic (eye) HS 03/30/23 04/07/25 levothyroxine 112 mcg tablet 88 mcg PO DAILY 03/30/23 04/07/25 multivitamin (Multiple Vitamins 1 tab PO DAILY 03/30/23 03/29/25 tablet) pramipexole 0.25 mg tablet 0.125 mg PO HS 03/30/23 04/07/25 alendronate 70 mg tablet 70 mg PO 03/29/25 brimonidine 0.2 %-timolol 0.5 % 1 drp ophthalmic (eye) BID 03/29/25 04/07/25 eye drops sertraline 50 mg tablet 25 mg PO DAILY 03/29/25 04/07/25 vibegron 75 mg tablet (Gemtesa) 75 mg PO DAILY 03/29/25 04/07/25 apixaban 5 mg tablet (Eliquis) 5 mg PO DAILY DVT 04/07/25 04/07/25 Allergies Allergy/AdvReac Type Severity Reaction Status Date / Time hydrocodone (From Panlor Allergy Mild Hives Verified 04/07/25 13:22 (hydrocodone-acetamin)) tramadol Allergy Mild Hives Verified 04/07/25 13:22 diltiazem (From Cardizem) AdvReac Mild Verified 04/07/25 13:22 lisinopril AdvReac Mild Cough Verified 04/07/25 13:22 Review of Systems Status of ROS Reports: 10 or more systems reviewed and unremarkable except as noted in History and below Narrative Constitutional: No fevers, no weight gain or loss. Eyes: No discharge. No vision changes. HENT: No congestion, no sore throat, no ear pain. Cardiovascular: No chest pain, no palpitations. Respiratory: No shortness of breath, no wheezes, no cough. Gastrointestinal: No vomiting, no diarrhea. Diffuse abdominal pain as described above. She has had constipation issues recently. She has poor appetite. Genitourinary: No dysuria, no hematuria. Musculoskeletal: Normal range of motion. Skin: No rashes, no pruritis. Neurological: No dizziness, sensory change, speech change. Endo/Heme/Allergies: No bruising or bleeding. No polydipsia. Pysch: no suicidality, no anxiety, no insomnia. All other systems reviewed and are negative. [facility] Medical History Skin cancer (11/28/18) ?C44.90 - Unspecified malignant neoplasm of skin, unspecified (ICD-10) Obesity, unspecified (05/19/07) ?E66.9 - Obesity, unspecified (ICD-10) Irregular heart rhythm (02/25/15) ?I49.9 - Cardiac arrhythmia, unspecified (ICD-10) Esophageal reflux (05/19/07) ?K21.9 - Gastro-esophageal reflux disease without esophagitis (ICD-10) Urinary incontinence (09/28/12) ?R32 - Unspecified urinary incontinence (ICD-10) RLS (restless legs syndrome) (09/28/12) ?G25.81 - Restless legs syndrome (ICD-10) Mixed hyperlipidemia (05/19/07) ?E78.2 - Mixed hyperlipidemia (ICD-10) Impaired fasting glucose (07/26/07) ?R73.01 - Impaired fasting glucose (ICD-10) Essential hypertension (10/28/15) ?I10 - Essential (primary) hypertension (ICD-10) Coronary artery disease (01/29/15) ?I25.10 - Atherosclerotic heart disease of [place] coronary artery without angina pectoris (ICD-10) Adjustment disorder with depressed mood (05/19/07) ?F43.21 - Adjustment disorder with depressed mood (ICD-10) Acquired hypothyroidism (10/28/15) ?E03.9 - Hypothyroidism, unspecified (ICD-10) Non-insulin dependent diabetes mellitus Peptic ulcer disease ?K27.9 - Peptic ulcer, site unspecified, unspecified as acute or chronic, without hemorrhage or perforation (ICD-10) Osteopenia ?M85.80 - Other specified disorders of bone density and structure, unspecified site (ICD-10) Diverticulosis ?K57.90 - Diverticulosis of intestine, part unspecified, without perforation or abscess without bleeding (ICD-10) Atrial fibrillation ?I48.91 - Unspecified atrial fibrillation (ICD-10) Hypothyroidism ?E03.9 - Hypothyroidism, unspecified (ICD-10) Depression ?F32.A - Depression, unspecified (ICD-10) HTN (hypertension) ?I10 - Essential (primary) hypertension (ICD-10) [place] Sachs deformity, 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.822 - Other specified acquired deformities of left upper arm (ICD-10) Anterior shoulder dislocation (04/11/22) ?S43.016A - Anterior dislocation of unspecified humerus, initial encounter (ICD-10) [place] lesion of left shoulder ?S43.492A - Other sprain of left shoulder joint, initial encounter (ICD-10) Rotator cuff tear, left ?M75.102 - Unspecified rotator cuff tear or rupture of left shoulder, not specified as traumatic (ICD-10) Tendinopathy of left biceps ?M67.922 - Unspecified disorder of synovium and tendon, left upper arm (ICD-10) Osteoarthritis of left knee ?M17.12 - Unilateral primary osteoarthritis, left knee (ICD-10) Restless legs ?G25.81 - Restless legs syndrome (ICD-10) Urinary incontinence ?R32 - Unspecified urinary incontinence (ICD-10) Adjustment disorder with depressed mood ?F43.21 - Adjustment disorder with depressed mood (ICD-10) Acquired hypothyroidism ?E03.9 - Hypothyroidism, unspecified (ICD-10) Impaired fasting glucose ?R73.01 - Impaired fasting glucose (ICD-10) Mixed hyperlipidemia ?E78.2 - Mixed hyperlipidemia (ICD-10) Essential hypertension ?I10 - Essential (primary) hypertension (ICD-10) Coronary artery disease ?I25.10 - Atherosclerotic heart disease of [place] coronary artery without angina pectoris (ICD-10) Surgical History Status post Sherrill fundoplication (without gastrostomy tube) procedure (03/15/08) ?Z98.890 - Other specified postprocedural states (ICD-10) 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) ?Z96.652 - Presence of left artificial knee joint (ICD-10) Status post Sherrill fundoplication (without gastrostomy tube) procedure ?Z98.890 - Other specified postprocedural states (ICD-10) Status post trigger finger release (03/31/23) ?Z98.890 - Other specified postprocedural states (ICD-10) History of open reduction and internal fixation (ORIF) procedure (03/31/23) ?Z98.890 - Other specified postprocedural states (ICD-10) History of phacoemulsification of cataract of left eye with intraocular lens implantation (10/10/08) ?Z98.42 - Cataract extraction status, left eye (ICD-10) ?Z96.1 - Presence of intraocular lens (ICD-10) History of YAG laser capsulotomy of lens of right eye (11/21/08) ?Z98.41 - Cataract extraction status, right eye (ICD-10) History of bladder surgery ?Z98.890 - Other specified postprocedural states (ICD-10) History of bunionectomy of both great toes ?Z98.890 - Other specified postprocedural states (ICD-10) History of hysterectomy (1992) ?Z90.710 - Acquired absence of both cervix and uterus (ICD-10) History of colectomy (~2007) ?Z90.49 - Acquired absence of other specified parts of digestive tract (ICD-10) H/O repair of right rotator cuff (~2013) ?Z98.890 - Other specified postprocedural states (ICD-10) 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 What is your current living situation?: I presently have a place to live Problems where you live: no known problems Problems where you live details: NA In the past 12 months, utilities in danger of being shut off: no In past 12 months, lack of transportation kept you from medical appts, meetings, work, or getting things needed for daily living: no In the past 12 mos, have been you worried that your food would run out before you had money to buy more?: never true In the past 12 mos, the food you bought just didn't last and you didn't have money to buy more?: never true Smoking Status: Never smoker Do you use any of these nicotine containing products: None Second hand tobacco smoke exposure: No How often do you have a drink containing alcohol: never How many standard drinks containing alcohol do you have on a typical day: 1 or 2 How often do you have six or more drinks on one occasion: Daily or almost daily AUDIT-C Alcohol total score: 4 Non-prescribed substance use: denies use Caffeine: No How often does anyone, including family, friends and others, physically hurt you: never How often does anyone, including family, friends and others, insult or talk down to you: never How often does anyone, including family, friends and others, threaten you with harm: never How often does anyone, including family, friends and others, scream or curse at you: never Exam Narrative: Exam Narrative: Constitutional: Well-developed, well-nourished, no acute distress. HEENT: Normocephalic, atraumatic. Neck: Normal range of motion. Nontender. Supple. Heart: Regular. No murmurs. Normal rate. Intact distal pulses. Lungs: Clear to auscultation. No chest discomfort. No wheezes, rhonchi, or rales. Abdomen: Distended. Decreased bowel sounds. Mild rebound tenderness. Pain seems to be more located on the left abdomen. Genitalia: Deferred. Back: No midline tenderness. Normal range of motion. Extremities: Normal range of motion. No injury. Skin: Intact. No rash. Warm. No erythema or pallor. Neurologic: No altered sensation. No weakness. Alert and oriented. Psychiatric: No suicidality. No anxiety or depression. No insomnia. Nursing notes and vitals signs are reviewed. Const: Vital Signs, click to edit/add: Vital Signs - 24 hr 04/07/25 12:09 Temperature 96.5 F L Pulse Rate [Pulse Oximeter] 110 H Respiratory Rate 18 Blood Pressure [Ri t Upper Arm] 107/78 Pulse Oximetry 95 Oxygen Delivery Me thod Room Air Course Vital Signs Vital signs: Initial Vital Signs Temperature 96.5 F L 04/07/25 12:09 Temperature Source Temporal Artery Scan 04/07/25 12:09 Pulse Rate 110 H 04/07/25 12:09 Respiratory Rate 18 04/07/25 12:09 Blood Pressure 107/78 04/07/25 12:09 Blood Pressure Mean 87 04/07/25 12:09 Pulse Oximetry 95 04/07/25 12:09 Oxygen Delivery Method Room Air 04/07/25 12:09 Vital Signs Temperature 96.5 F L 04/07/25 12:09 Pulse Rate 110 H 04/07/25 12:09 Respiratory Rate 18 04/07/25 12:09 Blood Pressure 107/78 04/07/25 12:09 Pulse Oximetry 95 04/07/25 12:09 Oxygen Delivery Method Room Air 04/07/25 12:09 Temperature 96.5 F L 04/07/25 12:09 Pulse Rate 110 H 04/07/25 12:09 Respiratory Rate 18 04/07/25 12:09 Blood Pressure 107/78 04/07/25 12:09 Pulse Oximetry 95 04/07/25 12:09 Oxygen Delivery Method Room Air 04/07/25 12:09 Medications Administered Medications: Discontinued Medications Generic Name Dose Route Start Last Admin Trade Name Freq PRN Reason Stop Dose Admin Hydromorphone HCl 0.25 mg 04/07/25 12:40 04/07/25 13:24 Hydromorphone 0.5 Mg/0.5 Ml Inj IVP 04/07/25 12:41 0.25 mg ONCE ONE Administration Sodium Chloride 500 mls @ 500 mls/hr 04/07/25 12:40 04/07/25 14:30 0.9 % Sodium Chloride 500 Ml IV 04/07/25 13:39 Infused .Q1H ONE Infusion Ondansetron HCl 4 mg 04/07/25 12:40 04/07/25 13:24 Ondansetron 2 Mg/Ml Inj IVP 04/07/25 12:41 4 mg ONCE ONE Administration MDM - Abdominal Pain MDM Narrative Medical decision making narrative: This patient comes in with distended abdomen and report of abdominal pain. I did obtain a CT scan of her abdomen and pelvis which shows the beginnings of what might be an obstruction as she does have several air-fluid levels and distended bowels with gas. There appears to be a rather large stool toward the end of the colon that may be obstructing. Patient's labs are returning with reassuring results. Her lactate also is in normal range. The patient did receive 500 mL of normal saline and a dose of Dilaudid 0.25 mg and Zofran 4 mg. She is feeling better. I did speak with the surgeon on-call and also with the hospitalist and plans are made for admission into the hospital as an observation status for ongoing management to these matters. Lab Data Labs: Lab Results 04/07/25 Range/Units 14:52 WBC 10.07 (4.50-11.00) K/uL RBC 4.65 (4.00-5.20) m/uL Hgb 14.4 (12.0-16.0) gm/dL Hct 42.9 (33.0-51.0) % MCV 92 (80-100) fL MCH 31 (26-34) pg MCHC 34 (32-36) gm/dL RDW Coeff of Justin 12.9 (11.5-15.5) % Plt Count 309 (140-440) K/uL Neut % (Auto) 82.0 H (42.0-72.0) % Lymph % (Auto) 7.6 L (20-44) % [place] % (Auto) 9.6 (0.0-11.0) % Eos % (Auto) 0.1 (0.0-7.0) % Baso % (Auto) 0.1 (0.0-3.0) % Neut # (Auto) 8.30 H (1.7-7.0) K/uL Lymph # (Auto) 0.80 L (0.90-2.90) K/uL [place] # (Auto) 1.00 H (0.00-0.90) K/UL Eos # (Auto) 0.01 (0.00-0.50) K/uL Baso # (Auto) 0.01 (0.00-0.30) K/uL Abs Immat Gran (auto) 0.06 (0.00-0.30) K/uL Imm/Tot Granulo (auto) 0.6 % Sodium 135 (135-149) mmol/L Potassium 3.8 (3.6-5.1) mmol/L Chloride 102 (96-114) mmol/L Carbon Dioxide 23 (20-32) mmol/L Anion Gap 10 (7-15) mEq/L BUN 34 H (7-30) mg/dL Creatinine 0.7 (0.5-1.5) mg/dL Estimated Creat Clear 36.81 Estimated GFR 86 ml/min Glucose 172 H (60-115) mg/dL Lactate 1.2 (0.5-1.9) mmol/L Calcium 7.9 L (8.4-10.6) mg/dL Total Bilirubin 0.8 (0.1-1.5) mg/dL Direct Bilirubin 0.4 (0.0-0.5) mg/dL AST 49 H (12-35) U/L ALT 28 (4-35) U/L Alkaline Phosphatase 120 (40-150) U/L Total Protein 6.3 (6.0-8.3) g/dL Albumin 3.0 L (3.3-5.0) g/dL Lipase 11 L (23-300) U/L Discharge Plan Discharge Clinical Impression: Constipation, Abdominal pain Patient Disposition: Admitted As Observation Condition: Unchanged
[2025-04-07] MEDS: ONDANSETRON 2 MG/ML inj 4 MG IVP ×3 (13:24→23:14)
[2025-04-07] MEDS: 0.9 % SODIUM CHLORIDE 500 ML 500 ML IV (13:24)
[2025-04-07 14:57] LABS: Lactate* 1.2 mmol/L (0.5-1.9)
[2025-04-07 14:59] LABS: Hematocrit* 42.9 % (33.0-51.0); Hemoglobin* 14.4 gm/dL (12.0-16.0); Immature Granulocytes Abs Auto 0.06 K/uL (0.00-0.30); Immature Granulocytes Pct Auto 0.6 %; Mean Corpuscular HGB Conc 34 gm/dL (32-36); Mean Corpuscular Hemoglobin 31 pg (26-34); Mean Corpuscular Volume 92 fL (80-100); RDW Coefficient of Variation % 12.9 % (11.5-15.5); Red Blood Count* 4.65 m/uL (4.00-5.20); White Blood Count* 10.07 K/uL (4.50-11.00)
[2025-04-07 15:03] LABS: Lymphocytes Absolute Auto 0.80 K/uL (0.90-2.90); Slide Review Reflex No
[2025-04-07 15:20] LABS: Albumin* 3.0 g/dL (3.3-5.0); Chloride* 102 mmol/L (96-114); Potassium* 3.8 mmol/L (3.6-5.1); Sodium* 135 mmol/L (135-149)
[2025-04-07 15:23] LABS: Alanine Aminotransferase* 28 U/L (4-35); Alkaline Phosphatase* 120 U/L (40-150); Anion Gap 10 mEq/L (7-15); Aspartate Amino Transferase* 49 U/L (12-35); Bilirubin Direct* 0.4 mg/dL (0.0-0.5); Bilirubin Total* 0.8 mg/dL (0.1-1.5); Blood Urea Nitrogen* 34 mg/dL (7-30); Calcium* 7.9 mg/dL (8.4-10.6); Carbon Dioxide* 23 mmol/L (20-32); Creatinine* 0.7 mg/dL (0.5-1.5); Est. Creatinine Clearance* 36.81; Estimated Glomerular Filt Rate 86 ml/min; Glucose* 172 mg/dL (60-115); Total Protein* 6.3 g/dL (6.0-8.3)
--- NOTE | 2025-04-07 15:48 | P.IMHP_ITS ---
Assessment and Plan Assessment and plan (1) Constipation: Problem comment: Acute on chronic causing some abdominal pain and distension. Unclear if this is the cause of her loss of appetite or caused by her very poor oral intake. With urinary retention consider neurologic causes as well Status: Acute (2) Severe malnutrition: Problem comment: Weight loss of 10 lb in 3 weeks. History indicates that she is eating almost no calories. Status: Acute (3) Dehydration: Problem comment: Appears dehydrated due to very poor oral intake. Initiate IV fluids. Status: Acute (4) Abdominal pain: Problem comment: Probably due to constipation. Continue to monitor as we treat constipation Status: Acute (5) Weakness: Problem comment: Likely due to malnutrition, not eating or drinking for the last 3 weeks or longer Status: Acute (6) Depression: Problem comment: Appears to have an apathetic depression Status: Acute (7) Hypothyroidism: Problem comment: - on Levothyroxine as outptaient. Check thyroid function. Status: Acute (8) Urinary retention: Problem comment: On admission had 620 mL of retained urine after a failed attempt to void. Monitor and place Brown if ongoing obstruction. Consider neurologic causes urin babak retention and constipation. Status: Acute Plan 84-year-old female admitted with acute on chronic constipation, abdominal pain, anorexia, malnutrition. Will initially manage constipation with oral laxatives and suppositories. Encourage in monitor oral intake. Manage nausea. Monitor for complications. Total Time Spent Total Time Spent: Total time spent today is 85 minutes in reviewing outside records, coordination of care, discussing with patient and ongoing management of constipation, poor appetite, dehydration, weakness. Hospitalist- H&P: HPI History of Present Illness Date Seen: 04/07/25 Chief complaint: Weak,vomiting Narrative: Talya Coon is a 84 year old female admitted through the emergency department with about a 1 month history of worsening nausea, anorexia, generalized abdominal pain, weakness, constipation, weight loss. She has a history of postoperative paroxysmal AFib, restless legs, previous history of small-bowel obstruction managed conservatively, Sherrill fundoplication, peptic ulcer disease with GI bleeding, restless legs, type 2 diabetes, hypothyroidism. History is obtained from the patient and her who is her primary caregiver and manages her medications. They think that her symptoms began about 1 month ago. She had a clinic visit for some of these symptoms and on March 16. At that time she was reporting new bowel and bladder incontinence and decreased appetite. was concerned about poor appetite, depression, dizziness with increased fall risk. Follow-up appointment on April 05, 3 weeks later, her weight had gone from 63.8 kg to 67.1 kg, 3.3 kg or about 7.2 lb. On admission her weight is 138 lb, down 10 lb from March 16. She acknowledges a history of some chronic constipation though indicates that it was not a big problem and relatively easily managed with p.r.n. laxatives. She has not had any blood in her stool except cousin notes possibly slight amount of blood on the tissue when he wipes her bottom. She has twice had a home health nurse come in and manually disimpact her colon and give her a suppository. Other than her manual disimpaction that occurred about a week ago she had 1 small soft normal stool 5 days ago. She had a relatively normal colonoscopy in 2016 with 1 hyperplastic polyp and melanosis coli noted, likely indicating chronic laxative use. It is unclear how much laxative she has been taking recently. She is quite vague about it. She has been prescribed MiraLax, senna and Mag citrate but has not taken any of those regularly recently. Three weeks ago she had a urinary tract infection which was treated and 1 week ago her urinalysis was normal. She is not aware of obstructive urinary symptoms but was found to have urinary retention, 620 mL postvoid residual, in the hospital. She was not aware of any problems with this in the past. She reports intact perineal sensation She reports no vomiting but she reports that she does have a lot of gagging, especially in the last day. She is eating almost nothing. Her notes that she has had almost no food because of severe nausea. She reports no trouble with swallowing. She has been drinking some water but even that is limited by nausea. She has had a Sherrill fundoplication in 2007 and since that time is not really had vomiting but when she is very nauseated she will gag. Her abdominal pain is described as constant diffuse across her entire mid abdomen perhaps a little bit more on the left than the right. Does not seem to change with activity or bowel function. At her clinic visit 2 days ago she had swelling of her left leg and was diagnosed with a femoral DVT and started on apixaban. When asked about her depression she does not answer. Her voices concern about this. Her antidepressant was recently switched from citalopram to sertraline. Notes indicate that she has been just laying in bed all day. She tells me that she is too weak to walk and too fatigued to do anything. Review of Systems Narrative: She reports no fever, upper respiratory symptoms, chest pain, shortness of breath. Left leg DVT noted from 2 days ago. Medical Decision Making Medical Decision Making Has patient completed a Health Care Directive: No PFSH FOR[facility]LY [facility] Medical History (Updated 04/07/25 @ 18:28 by Canelo Mccain MD) Urinary retention ?R33.9 - Retention of urine, unspecified (ICD-10) Dehydration ?E86.0 - Dehydration (ICD-10) Severe malnutrition ?E43 - Unspecified severe protein-calorie malnutrition (ICD-10) Constipation ?K59.00 - Constipation, unspecified (ICD-10) Skin cancer (11/28/18) ?C44.90 - Unspecified malignant neoplasm of skin, unspecified (ICD-10) Obesity, unspecified (05/19/07) ?E66.9 - Obesity, unspecified (ICD-10) Irregular heart rhythm (02/25/15) ?I49.9 - Cardiac arrhythmia, unspecified (ICD-10) Esophageal reflux (05/19/07) ?K21.9 - Gastro-esophageal reflux disease without esophagitis (ICD-10) Urinary incontinence (09/28/12) ?R32 - Unspecified urinary incontinence (ICD-10) RLS (restless legs syndrome) (09/28/12) ?G25.81 - Restless legs syndrome (ICD-10) Mixed hyperlipidemia (05/19/07) ?E78.2 - Mixed hyperlipidemia (ICD-10) Impaired fasting glucose (07/26/07) ?R73.01 - Impaired fasting glucose (ICD-10) Essential hypertension (10/28/15) ?I10 - Essential (primary) hypertension (ICD-10) Coronary artery disease (01/29/15) ?I25.10 - Atherosclerotic heart disease of [place] coronary artery without angina pectoris (ICD-10) Adjustment disorder with depressed mood (05/19/07) ?F43.21 - Adjustment disorder with depressed mood (ICD-10) Acquired hypothyroidism (10/28/15) ?E03.9 - Hypothyroidism, unspecified (ICD-10) Non-insulin dependent diabetes mellitus Peptic ulcer disease ?K27.9 - Peptic ulcer, site unspecified, unspecified as acute or chronic, without hemorrhage or perforation (ICD-10) Osteopenia ?M85.80 - Other specified disorders of bone density and structure, unspecified site (ICD-10) Diverticulosis ?K57.90 - Diverticulosis of intestine, part unspecified, without perforation or abscess without bleeding (ICD-10) Atrial fibrillation ?I48.91 - Unspecified atrial fibrillation (ICD-10) Hypothyroidism ?E03.9 - Hypothyroidism, unspecified (ICD-10) Depression ?F32.A - Depression, unspecified (ICD-10) HTN (hypertension) ?I10 - Essential (primary) hypertension (ICD-10) Hill Sachs deformity, left ?M21.822 - Other specified acquired deformities of left upper arm (ICD-10) Anterior shoulder dislocation (04/11/22) ?S43.016A - Anterior dislocation of unspecified humerus, initial encounter (ICD-10) Bankart lesion of left shoulder ?S43.492A - Other sprain of left shoulder joint, initial encounter (ICD-10) Rotator cuff tear, left ?M75.102 - Unspecified rotator cuff tear or rupture of left shoulder, not specified as traumatic (ICD-10) Tendinopathy of left biceps ?M67.922 - Unspecified disorder of synovium and tendon, left upper arm (ICD- 10) Osteoarthritis of left knee ?M17.12 - Unilateral primary osteoarthritis, left knee (ICD-10) Restless legs ?G25.81 - Restless legs syndrome (ICD-10) Urinary incontinence ?R32 - Unspecified urinary incontinence (ICD-10) Adjustment disorder with depressed mood ?F43.21 - Adjustment disorder with depressed mood (ICD-10) Acquired hypothyroidism ?E03.9 - Hypothyroidism, unspecified (ICD-10) Impaired fasting glucose ?R73.01 - Impaired fasting glucose (ICD-10) Mixed hyperlipidemia ?E78.2 - Mixed hyperlipidemia (ICD-10) Essential hypertension ?I10 - Essential (primary) hypertension (ICD-10) Coronary artery disease ?I25.10 - Atherosclerotic heart disease of [place] coronary artery without angina pectoris (ICD-10) Surgical History Status post Sherrill fundoplication (without gastrostomy tube) procedure (03/15/ 8) ?Z98.890 - Other specified postprocedural states (ICD-10) 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) ?Z96.652 - Presence of left artificial knee joint (ICD-10) Status post Sherrill fundoplication (without gastrostomy tube) procedure ?Z98.890 - Other specified postprocedural states (ICD-10) Status post trigger finger release (03/31/23) ?Z98.890 - Other specified postprocedural states (ICD-10) History of open reduction and internal fixation (ORIF) procedure (03/31/23) ?Z98.890 - Other specified postprocedural states (ICD-10) History of phacoemulsification of cataract of left eye with intraocular lens implantation (10/10/08) ?Z98.42 - Cataract extraction status, left eye (ICD-10) ?Z96.1 - Presence of intraocular lens (ICD-10) History of YAG laser capsulotomy of lens of right eye (11/21/08) ?Z98.41 - Cataract extraction status, right eye (ICD-10) History of bladder surgery ?Z98.890 - Other specified postprocedural states (ICD-10) History of bunionectomy of both great toes ?Z98.890 - Other specified postprocedural states (ICD-10) History of hysterectomy (1992) ?Z90.710 - Acquired absence of both cervix and uterus (ICD-10) History of colectomy (~2007) ?Z90.49 - Acquired absence of other specified parts of digestive tract (ICD- 10) H/O repair of right rotator cuff (~2013) ?Z98.890 - Other specified postprocedural states (ICD-10) 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 She has never smoked. She does drink 1 glass of wine a day What is your current living situation?: I presently have a place to live Problems where you live: no known problems Problems where you live details: NA In the past 12 months, utilities in danger of being shut off: no In past 12 months, lack of transportation kept you from medical appts, meetings, work, or getting things needed for daily living: no In the past 12 mos, have been you worried that your food would run out before you had money to buy more?: never true In the past 12 mos, the food you bought just didn't last and you didn't have money to buy more?: never true Smoking Status: Never smoker Do you use any of these nicotine containing products: None Second hand tobacco smoke exposure: No How often do you have a drink containing alcohol: never How many standard drinks containing alcohol do you have on a typical day: 1 or 2 How often do you have six or more drinks on one occasion: Daily or almost daily AUDIT-C Alcohol total score: 4 Non-prescribed substance use: denies use Caffeine: No How often does anyone, including family, friends and others, physically hurt you : never How often does anyone, including family, friends and others, insult or talk down to you: never How often does anyone, including family, friends and others, threaten you with harm: never How often does anyone, including family, friends and others, scream or curse at you: never Meds Home Medications and Allergies Home Medications ?Medication ?Instructions ?Recorded ?Confirmed ?Type atorvastatin 20 mg tablet 20 mg PO DAILY 03/30/2303/24 History latanoprost 0.005 % eye drops 1 drp ophthalmic (eye) H S 03/30/23 04/07/25 History levothyroxine 112 mcg tablet 88 mcg PO DAILY 03/30/23 04/07/25 History multivitamin (Multiple Vitamins 1 tab PO DAILY 3 03/29/25 History tablet) pramipexole 0.25 mg tablet 0.125 mg PO HS 03/30/23 History alendronate 70 mg tablet 70 mg PO 03/29/25 History brimonidine 0.2 %-timolol 0.5 % 1 drp ophthalmic (eye) BID 03/29/25 04/07/25 History eye drops sertraline 50 mg tablet 25 mg PO DAILY 03/29/2503/24 History vibegron 75 mg tablet (Gemtesa) 75 mg PO DAILY 5 04/07/25 History apixaban 5 mg tablet (Eliquis) 5 mg PO DAILY DVT 04/0704/07/25 History Allergies Allergy/AdvReac Type Severity Reaction Status Date / Time hydrocodone (From Panlor Allergy Mild Hives Verified 04/07/25 13:22 (hydrocodone-acetamin)) tramadol Allergy Mild Hives Verified 04/07/25 13:22 diltiazem (From Cardizem) AdvReac Mild Verified 04/07/25 13:22 lisinopril AdvReac Mild Cough Verified 04/07/25 13:22 Exam Narrative: Exam Narrative: She is alert and appears in no obvious distress. Mood an affect are somewhat incongruent. She does not appear significantly concerned despite her fairly severe prolonged symptoms in contrast to her who is quite concerned. Head is without trauma. Eyes normal. Oropharynx with dry mucous membranes. Neck is supple without mass or adenopathy. Respirations are clear to auscultation. Breathing is unlabored. Cardiovascular: S1, S2, regular rate and rhythm. Abdomen: Bowel sounds active. Abdomen is soft. Abdomen is somewhat distended. She has mild diffuse abdominal tenderness a little greater on the left lower quadrant. And not palpate a mass. There is no peritonitis. External genitalia normal. Extremities with 2+ edema in the left ankle, 1+ edema in the right ankle. Fairly good pulses. Extremities are slightly cool to touch. Const: Vital Signs, click to edit/add: Vital Signs - 24 hr 04/07/25 12:09 Temperature 96.5 F L Pulse Rate [Pulse Oximeter] 110 H Respiratory Rate 18 Blood Pressure [Ri ght Upper Arm] 107/78 Pulse Oximetry 95 Oxygen Delivery Me thod Room Air Documenting provider has reviewed patient's vital signs: yes Hospitalist - H&P: Result Labs Labs: Short CBC 04/07/25 Range/Units 14:52 WBC 10.07 (4.50-11.00) K/uL Hgb 14.4 (12.0-16.0) gm/dL Hct 42.9 (33.0-51.0) % Plt Count 309 (140-440) K/uL BMP 04/07/25 14:52 Sodium 135 Potassium 3.8 Chloride 102 Carbon Dioxide 23 BUN 34 H Creatinine 0.7 Glucose 172 H Calcium 7.9 L Liver Function 04/07/25 Range/Units 14:52 Total Bilirubin 0.8 (0.1-1.5) mg/dL Direct Bilirubin 0.4 (0.0-0.5) mg/dL AST 49 H (12-35) U/L ALT 28 (4-35) U/L Alkaline Phosphatase 120 (40-150) U/L Albumin 3.0 L (3.3-5.0) g/dL Imaging Venous US: Radiologist's impression: From 04/05/2025: INDICATION: Left leg swelling ? COMPARISON: None. ? TECHNIQUE: A compression venous ultrasound exam was performed of the left lower extremity using malone-scale imaging, color Doppler and spectral Doppler analysis. ? FINDINGS: Hypoechoic noncompressible clot is present within the left common femoral vein, deep femoral vein, femoral vein, popliteal vein and posterior tibial veins. Clot is also present at the saphenofemoral junction. ? Limited imaging of the contralateral groin demonstrates a normal spectral waveform and color Doppler venous blood flow within the right common femoral vein. ? IMPRESSION: Extensive DVT left lower extremity. Dr. Khan aware. ? ? ? Dictated by Grey Sales MD @ 04/05/2025 3:57:57 PM ? CT scan - abdomen: Radiologist's impression: INDICATION: ABD PAIN. RECENT CONSTIPATION. TECHNIQUE: CT abdomen and pelvis acquired with 69 cc Isovue 370 IV contrast. COMPARISON: December 2014. FINDINGS: Lower chest: Motion. Coronary artery calcifications. ABDOMEN: Liver: Normal enhancement. Focal fatty infiltration adjacent to the gallbladder. Gallbladder and biliary: Normal gallbladder without radiopaque stone. Normal caliber bile ducts. Spleen: Normal size and enhancement. Pancreas: Normal enhancement without peripancreatic inflammatory changes or ductal dilatation. Adrenal glands: Normal adrenal glands. Kidneys and ureters: Normal enhancement. No radio-opaque calculi. No hydroureteronephrosis. Left renal cyst. Subcentimeter hypodensities are too small to characterize however statistically represent cysts. GI tract: Changes of fundoplication. Normal caliber small bowel loops. Appendix is not definitively visualized. Large bowel is distended/borderline dilated multiple large stool balls, and air-fluid levels. No adjacent wall thickening or inflammatory stranding. Colonic diverticulosis without diverticulitis. Associated change in caliber at the junction of the descending colon with the sigmoid at which point there is a moderate-sized stool ball. Vascular structures: Normal caliber abdominal aorta. Lymph nodes: No lymphadenopathy in the abdomen or pelvis by size criteria. Peritoneum: No free air, free fluid, or focal drainable fluid collection. PELVIS: Genitourinary system: Normal urinary bladder. Hysterectomy. SKELETAL STRUCTURES AND SOFT TISSUES: Tiny fat containing umbilical hernia. Changes of lower pelvic mesh hernia multilevel spondylosis. New from 2014, age-indeterminate compression deformity of T9. Favoring chronic origin. Repair. IMPRESSION: Large bowel is distended/borderline dilated multiple large stool balls, and air-fluid levels. No adjacent wall thickening or inflammatory stranding. Colonic diverticulosis without diverticulitis. Associated change in caliber at the junction of the descending colon with the sigmoid at which point there is a moderate-sized stool ball. This may be causing partial obstruction.
[2025-04-07] MEDS: 5 % DEXTROSE IN LAC RINGER'S 1,000 ML 125 ML IV (18:24)
[2025-04-07] MEDS: SIMETHICONE 80 MG TAB.CHEW PO (18:30)
[2025-04-07] MEDS: ACETAMINOPHEN 325 MG TABLET 650 MG PO (19:59)
--- NOTE | 2025-04-07 20:12 | P.GSCN_ITS ---
History of Present Illness Consult details Date Seen: 04/07/25 Consult date: 04/07/25 Narrative: Patient presented to the emergency department with her today for weakness and abdominal pain. She has been suffering from severe constipation for the last several weeks. She does have a home health aide, physical therapist and occupational therapist who comes to her house. On chart review and in talking with her and her it sounds like she is had a dramatic deterioration over the past weeks to months. The main symptoms she has been experiencing has been profound weakness, decreased appetite and constipation. Her gave the history for the patient. He thinks this started about 1 month ago. At that time she was having some new bowel and bladder incontinence. He says that it was mainly liquidy stools mixed with urine. This then p rogressed to more severe constipation and decline in appetite. She has been taking senna. This week he describes several episodes of disimpaction that the home health nurse performed, as well as enemas. Her last bowel movement was small and around /Wednesday. He does not think she has been passing gas. She has been belching frequently. She has a history of a hiatal hernia repair and is unable to vomit. She has had constipation the past, but nothing this severe. Her last colonoscopy was 2016. During a recent evaluation earlier this week, she was diagnosed with a DVT and started on Eliquis. Her surgical history includes a hiatal hernia repair, bladder suspension, hysterectomy and tubal ligation Review of Systems Status of ROS: Reports: 10 or more systems reviewed and unremarkable except as noted in History and below [facility] Medical History (Updated 04/07/25 @ 18:28 by Canelo Mccain MD) Urinary retention ?R33.9 - Retention of urine, unspecified (ICD-10) Dehydration ?E86.0 - Dehydration (ICD-10) Severe malnutrition ?E43 - Unspecified severe protein-calorie malnutrition (ICD-10) Constipation ?K59.00 - Constipation, unspecified (ICD-10) Skin cancer (11/28/18) ?C44.90 - Unspecified malignant neoplasm of skin, unspecified (ICD-10) Obesity, unspecified (05/19/07) ?E66.9 - Obesity, unspecified (ICD-10) Irregular heart rhythm (02/25/15) ?I49.9 - Cardiac arrhythmia, unspecified (ICD-10) Esophageal reflux (05/19/07) ?K21.9 - Gastro-esophageal reflux disease without esophagitis (ICD-10) Urinary incontinence (09/28/12) ?R32 - Unspecified urinary incontinence (ICD-10) RLS (restless legs syndrome) (09/28/12) ?G25.81 - Restless legs syndrome (ICD-10) Mixed hyperlipidemia (05/19/07) ?E78.2 - Mixed hyperlipidemia (ICD-10) Impaired fasting glucose (07/26/07) ?R73.01 - Impaired fasting glucose (ICD-10) Essential hypertension (10/28/15) ?I10 - Essential (primary) hypertension (ICD-10) Coronary artery disease (01/29/15) ?I25.10 - Atherosclerotic heart disease of [place] coronary artery without angina pectoris (ICD-10) Adjustment disorder with depressed mood (05/19/07) ?F43.21 - Adjustment disorder with depressed mood (ICD-10) Acquired hypothyroidism (10/28/15) ?E03.9 - Hypothyroidism, unspecified (ICD-10) Non-insulin dependent diabetes mellitus Peptic ulcer disease ?K27.9 - Peptic ulcer, site unspecified, unspecified as acute or chronic, without hemorrhage or perforation (ICD-10) Osteopenia ?M85.80 - Other specified disorders of bone density and structure, unspecified site (ICD-10) Diverticulosis ?K57.90 - Diverticulosis of intestine, part unspecified, without perforation or abscess without bleeding (ICD-10) Atrial fibrillation ?I48.91 - Unspecified atrial fibrillation (ICD-10) Hypothyroidism ?E03.9 - Hypothyroidism, unspecified (ICD-10) Depression ?F32.A - Depression, unspecified (ICD-10) HTN (hypertension) ?I10 - Essential (primary) hypertension (ICD-10) Hill Sachs deformity, 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.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 - Other specified acquired deformities of left upper arm (ICD-10) Anterior shoulder dislocation (04/11/22) ?S43.016A - Anterior dislocation of unspecified humerus, initial encounter (ICD-10) Bankart lesion of left shoulder ?S43.492A - Other sprain of left shoulder joint, initial encounter (ICD-10) Rotator cuff tear, left ?M75.102 - Unspecified rotator cuff tear or rupture of left shoulder, not specified as traumatic (ICD-10) Tendinopathy of left biceps ?M67.922 - Unspecified disorder of synovium and tendon, left upper arm (ICD- 10) Osteoarthritis of left knee ?M17.12 - Unilateral primary osteoarthritis, left knee (ICD-10) Restless legs ?G25.81 - Restless legs syndrome (ICD-10) Urinary incontinence ?R32 - Unspecified urinary incontinence (ICD-10) Adjustment disorder with depressed mood ?F43.21 - Adjustment disorder with depressed mood (ICD-10) Acquired hypothyroidism ?E03.9 - Hypothyroidism, unspecified (ICD-10) Impaired fasting glucose ?R73.01 - Impaired fasting glucose (ICD-10) Mixed hyperlipidemia ?E78.2 - Mixed hyperlipidemia (ICD-10) Essential hypertension ?I10 - Essential (primary) hypertension (ICD-10) Coronary artery disease ?I25.10 - Atherosclerotic heart disease of [place] coronary artery without angina pectoris (ICD-10) Surgical History Status post Sherrill fundoplication (without gastrostomy tube) procedure (03/15/08) ?Z98.890 - Other specified postprocedural states (ICD-10) 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) ?Z96.652 - Presence of left artificial knee joint (ICD-10) Status post Sherrill fundoplication (without gastrostomy tube) procedure ?Z98.890 - Other specified postprocedural states (ICD-10) Status post trigger finger release (03/31/23) ?Z98.890 - Other specified postprocedural states (ICD-10) History of open reduction and internal fixation (ORIF) procedure (03/31/23) ?Z98.890 - Other specified postprocedural states (ICD-10) History of phacoemulsification of cataract of left eye with intraocular lens imp lantation (10/10/08) ?Z98.42 - Cataract extraction status, left eye (ICD-10) ?Z96.1 - Presence of intraocular lens (ICD-10) History of YAG laser capsulotomy of lens of right eye (11/21/08) ?Z98.41 - Cataract extraction status, right eye (ICD-10) History of bladder surgery ?Z98.890 - Other specified postprocedural states (ICD-10) History of bunionectomy of both great toes ?Z98.890 - Other specified postprocedural states (ICD-10) History of hysterectomy (1992) ?Z90.710 - Acquired absence of both cervix and uterus (ICD-10) History of colectomy (~2007) ?Z90.49 - Acquired absence of other specified parts of digestive tract (ICD- 10) H/O repair of right rotator cuff (~2013) ?Z98.890 - Other specified postprocedural states (ICD-10) 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 She has never smoked. She does drink 1 glass of wine a day What is your current living situation?: I presently have a place to live Problems where you live: no known problems Problems where you live details: none known In the past 12 months, utilities in danger of being shut off: no In past 12 months, lack of transportation kept you from medical appts, meetings, work, or getting things needed for daily living: no In the past 12 mos, have been you worried that your food would run out before you had money to buy more?: never true In the past 12 mos, the food you bought just didn't last and you didn't have money to buy more?: never true Smoking Status: Never smoker Do you use any of these nicotine containing products: None Second hand tobacco smoke exposure: No How often do you have a drink containing alcohol: 4 or more times a week Alcohol type: wine Alcohol type details: normally drinks a glass of wine each night, has not in a month How many standard drinks containing alcohol do you have on a typical day: 1 or 2 How often do you have six or more drinks on one occasion: Never AUDIT-C Alcohol total score: 4 Non-prescribed substance use: denies use Caffeine: No How often does anyone, including family, friends and others, physically hurt you : never How often does anyone, including family, friends and others, insult or talk down to you: never How often does anyone, including family, friends and others, threaten you with harm: never How often does anyone, including family, friends and others, scream or curse at you: never Meds Home Medications and Allergies Home Medications ?Medication ?Instructions ?Recorded ?Confirmed ?Type atorvastatin 20 mg tablet 20 mg PO DAILY 03/30/2303/24 History latanoprost 0.005 % eye drops 1 drp ophthalmic (eye) H S 03/30/23 04/07/25 History levothyroxine 112 mcg tablet 88 mcg PO DAILY 03/30/23 04/07/25 History multivitamin (Multiple Vitamins 1 tab PO DAILY 3 03/29/25 History tablet) pramipexole 0.25 mg tablet 0.125 mg PO HS 03/30/23 History alendronate 70 mg tablet 70 mg PO 03/29/25 History brimonidine 0.2 %-timolol 0.5 % 1 drp ophthalmic (eye) BID 03/29/25 04/07/25 History eye drops sertraline 50 mg tablet 25 mg PO DAILY 03/29/2503/24 History vibegron 75 mg tablet (Gemtesa) 75 mg PO DAILY 5 04/07/25 History apixaban 5 mg tablet (Eliquis) 5 mg PO DAILY DVT 04/0704/07/25 History Allergies Allergy/AdvReac Type Severity Reaction Status Date / Time hydrocodone (From Panlor Allergy Mild Hives Verified 04/07/25 13:22 (hydrocodone-acetamin)) tramadol Allergy Mild Hives Verified 04/07/25 13:22 diltiazem (From Cardizem) AdvReac Mild Verified 04/07/25 13:22 lisinopril AdvReac Mild Cough Verified 04/07/25 13:22 Exam Narrative: Exam Narrative: General: Alert and oriented, flat affect Respiratory: Equal breath rise, maintained on room air CV: Well perfused Abdomen: Distended, tympanic, some mild tenderness with palpation but no guarding or rebound. Soft. Midline incision well healed. Const: Vital Signs, click to edit/add: Vital Signs - 24 hr 04/07/25 12:09 04/07/25 12:31 04/07/25 13:31 Temperature 96.5 F L Pulse Rate 78 99 Pulse Rate [Left P ulse Oximeter] Pulse Rate [Pulse Oximeter] 110 H Respiratory Rate 18 14 22 Blood Pressure 148/116 H 132/78 Blood Pressure [Le ft Arm] Blood Pressure [Ri ght Upper Arm] 107/78 Pulse Oximetry 95 96 [facility] 04/07/25 14:01 04/07/25 14:31 04/07/25 15:01 Temperature Pulse Rate 100 80 98 Pulse Rate [Left P ulse Oximeter] Pulse Rate [Pulse Oximeter] Respiratory Rate 15 12 18 Blood Pressure 130/82 129/106 H 139/85 Blood Pressure [Le ft Arm] Blood Pressure [Ri ght Upper Arm] Pulse Oximetry 93 92 94 [facility] 04/07/25 15:31 04/07/25 16:02 04/07/25 17:00 Temperature Pulse Rate 91 81 Pulse Rate [Left P ulse Oximeter] Pulse Rate [Pulse Oximeter] Respiratory Rate 24 23 Blood Pressure 123/77 121/74 Blood Pressure [Le ft Arm] 142/75 H Blood Pressure [Ri ght Upper Arm] Pulse Oximetry 94 93 Oxygen Delivery Ks thod 04/07/25 18:30 04/07/25 18:30 04/07/25 19:00 Temperature 97.8 F 97.5 F L Pulse Rate Pulse Rate [Left P ulse Oximeter] 112 H 107 H Pulse Rate [Pulse Oximeter] Respiratory Rate 24 24 20 Blood Pressure Blood Pressure [Le ft Arm] 176/119 H 128/95 H Blood Pressure [Ri ght Upper Arm] Pulse Oximetry 93 93 95 [facility] Room Air Room Air Results Labs Labs: Abnormal lab results 04/07/25 Range/Units 14:52 Neut % (Auto) 82.0 H (42.0-72.0) % Lymph % (Auto) 7.6 L (20-44) % Neut # (Auto) 8.30 H (1.7-7.0) K/uL Lymph # (Auto) 0.80 L (0.90-2.90) K/uL Jerome # (Auto) 1.00 H (0.00-0.90) K/UL BUN 34 H (7-30) mg/dL Glucose 172 H (60-115) mg/dL Calcium 7.9 L (8.4-10.6) mg/dL AST 49 H (12-35) U/L Albumin 3.0 L (3.3-5.0) g/dL Lipase 11 L (23-300) U/L Diabetes panel 04/07/25 Range/Units 14:52 Sodium 135 (135-149) mmol/L Potassium 3.8 (3.6-5.1) mmol/L Chloride 102 (96-114) mmol/L Carbon Dioxide 23 (20-32) mmol/L BUN 34 H (7-30) mg/dL Creatinine 0.7 (0.5-1.5) mg/dL Glucose 172 H (60-115) mg/dL Calcium 7.9 L (8.4-10.6) mg/dL AST 49 H (12-35) U/L ALT 28 (4-35) U/L Alkaline Phosphatase 120 (40-150) U/L Total Protein 6.3 (6.0-8.3) g/dL Albumin 3.0 L (3.3-5.0) g/dL Thyroid panel 04/07/25 Range/Units 14:52 TSH 1.160 (0.270-4.20) uIU/mL Calcium panel 04/07/25 Range/Units 14:52 Calcium 7.9 L (8.4-10.6) mg/dL Albumin 3.0 L (3.3-5.0) g/dL Pituitary panel 04/07/25 Range/Units 14:52 Sodium 135 (135-149) mmol/L Potassium 3.8 (3.6-5.1) mmol/L Chloride 102 (96-114) mmol/L Carbon Dioxide 23 (20-32) mmol/L BUN 34 H (7-30) mg/dL Creatinine 0.7 (0.5-1.5) mg/dL Glucose 172 H (60-115) mg/dL Calcium 7.9 L (8.4-10.6) mg/dL TSH 1.160 (0.270-4.20) uIU/mL Adrenal panel 04/07/25 Range/Units 14:52 Sodium 135 (135-149) mmol/L Potassium 3.8 (3.6-5.1) mmol/L Chloride 102 (96-114) mmol/L Carbon Dioxide 23 (20-32) mmol/L BUN 34 H (7-30) mg/dL Creatinine 0.7 (0.5-1.5) mg/dL Glucose 172 H (60-115) mg/dL Calcium 7.9 L (8.4-10.6) mg/dL Total Bilirubin 0.8 (0.1-1.5) mg/dL AST 49 H (12-35) U/L ALT 28 (4-35) U/L Alkaline Phosphatase 120 (40-150) U/L Total Protein 6.3 (6.0-8.3) g/dL Albumin 3.0 L (3.3-5.0) g/dL All other labs normal. Imaging Abdomen CT scan report/results: report reviewed and image reviewed Progress Note:A&P Assessment and plan (1) Constipation: Status: Acute Assessment and Plan: Patient with acute on chronic severe constipation. I do think this is contributing to her appetite suppression and is the cause of her abdominal pain. Unsure of the etiology at this time, could be neurologic versus mass. On CT imaging the large bowel is significantly distended with a large amount of air and large stool balls. There is a caliber change at the junction of the descending colon to the sigmoid, where a moderate-sized stool ball is present. This could be the cause of a partial obstruction, with only a small amount of air being present in the sigmoid and rectum. No definitive mass or bowel wall thickening is visualized. Plan Recommend oral laxatives, suppositories and enemas for her constipation. Will start with MiraLax and simethicone. Could consider Mag citrate, however want to make sure that patient is tolerating liquid p.o. intake before giving this more aggressive laxative. I also recommend suppositories and/or enemas. Patient was encouraged to ambulate the hallway.
[2025-04-07] MEDS: METOPROLOL TARTRATE 1 MG/ML inj 5 MG IVP (21:17)
[2025-04-07] MEDS: PRAMIPEXOLE 0.25 MG TABLET 0.125 MG PO (21:18)
[2025-04-07] MEDS: ADENOSINE 6 MG/2ML INJ IVP (21:18)
[2025-04-07] MEDS: ENOXAPARIN 60 MG/0.6 ML INJ SUBCUT (21:22)
[2025-04-07] MEDS: SODIUM CHLORIDE 0.9 % (FLUSH) 10 ML SYRINGE 5 ML IVF (21:23)
[2025-04-07] MEDS: LATANOPROST 0.005% OPHTH 1 DROP EYE-BOTH (21:23)
[2025-04-07 21:28] LABS: Lactate* 2.8 mmol/L (0.5-1.9)
[2025-04-07] MEDS: LACTATED RINGERS 500 ML 500 ML IV (21:48)
[2025-04-07 22:02] LABS: NT Pro B Type NatriureticPept* 825 pg/mL (See Note)
[2025-04-07] MEDS: DOCUSATE SODIUM/BENZOCAINE 5 ML ENEMA PR (22:34)
[2025-04-07 22:46] LABS: Appearance Urine Clear (Clear)
[2025-04-07 23:46] LABS: Lactate* 5.2 mmol/L (0.5-1.9)
[2025-04-07 23:49] LABS: Hematocrit* 43.1 % (33.0-51.0); Hemoglobin* 14.5 gm/dL (12.0-16.0); Immature Granulocytes Pct Auto 0.3 %; Mean Corpuscular HGB Conc 34 gm/dL (32-36); Mean Corpuscular Hemoglobin 31 pg (26-34); Mean Corpuscular Volume 93 fL (80-100); RDW Coefficient of Variation % 13.0 % (11.5-15.5); Red Blood Count* 4.64 m/uL (4.00-5.20); White Blood Count* 13.45 K/uL (4.50-11.00)
[2025-04-07 23:54] LABS: Immature Granulocytes Abs Auto 0.00 K/uL (0.00-0.30); Lymphocytes Absolute Auto 1.30 K/uL (0.90-2.90); Slide Review Reflex No
[2025-04-08] VITALS (14 sets, daily range): BP systolic 129–152; BP diastolic 88–123; PULSE 95–160; RESP 20–38; TEMP 36–37.2; O2SAT 93–97
[2025-04-08] MEDS: PIPERACILLIN/TAZOBACTAM 3.375 GM in 0.9 % SODIUM CHLORIDE Mini-bag 100 ML IVPB (00:19)
[2025-04-08] MEDS: LACTATED RINGERS 500 ML 500 ML IV ×2 (01:01→04:05)
--- NOTE | 2025-04-08 02:39 | W.PM.CROSSCO ---
Subjective Subjective Time Seen by Provider: 01:50 Date Seen: 04/08/25 Principal diagnosis: colonic ischemia Interval history: I was asked to see the patient due to atrial fibrillation with a rapid ventricular rate and elevated lactic acid level. Patient was admitted yesterday with worsening of chronic abdominal pain thought to be due to severe chronic constipation. She had a couple of enemas with little result. Since that time her abdominal pain has worsened a little. She went into rapid atrial fibrillation late last night. Labs were drawn and lactic acid was over 2 then 5.2. White blood cell count was around 13,000. She was given an IV fluid bolus, IV Zosyn and IV metoprolol. Objective Objective Data Details: Vital signs reviewed last systolic blood pressure was around 150 and heart rate ranging from 100 to 1 The patient does not appear to be in any acute distress, she is awake alert and conversant Heart tachycardic and irregular S1-S2 heard Bilateral breath sounds present no wheezing rales or rhonchi heard Abdominal exam as done by nurse shows a distended firm abdomen with mild generalized tenderness but no rebound or guarding. There are high-pitched bowel sounds especially in the right lower quadrant AXR Prominent colonic distention, slightly increased compared to prior CT, concerning for developing obstruction. Prominent stool burden. No radiographic evidence of free intraperitoneal air. Labs?lactate, CBC and CMP ordered Assessment and Plan Assessment and plan (1) Abdominal pain: Problem comment: Probably due to constipation. Continue to monitor as we treat constipation Status: Acute (2) Atrial fibrillation with rapid ventricular response: Status: Acute (3) Lactic acid acidosis: Status: Acute Plan 84-year-old woman with chronic constipation admitted with worsening abdominal pain thought to be due to obstipation who is now having worsening pain and abdominal distention. She is now in atrial fibrillation with a rapid ventricular rate and has a lactic acid level of 5.2 and white blood cell count 13,000. Abdominal x-ray shows probable worsening of the colonic distention seen on her CT scan but no free air. Suspect colonic ischemia due to compression from obstipation She needs an enema and possibly manual disimpaction of her colon. Apparently a tapwater enemas not available. We can try another pink lady enema and the charge nurse will discuss the patient with the on-call surgeon who has already assessed the patient The patient is being transferred to the CCU Lactic acidosis due to the above The patient received IV Zosyn which will be continued Additional fluid bolus ordered due to low urine output Continue maintenance IV fluid Repeat lactic acid level pending Atrial fibrillation with rapid ventricular rate The patient received IV metoprolol earlier but is still quite tachycardic IV digoxin ordered Continue to monitor heart rate Addendum I was informed that the surgeon is going to be taking the patient to the operating room shortly Total Time Spent Total Time Spent: 60 minutes of critical care time
[2025-04-08] MEDS: 0.9 % SODIUM CHLORIDE 250 ml 250 ML IV (02:47)
[2025-04-08 02:51] LABS: Hematocrit* 42.8 % (33.0-51.0); Hemoglobin* 14.2 gm/dL (12.0-16.0); Immature Granulocytes Pct Auto 0.1 %; Lactate Sepsis w/Reflex* 5.4 mmol/L (0.5-1.9); Mean Corpuscular HGB Conc 33 gm/dL (32-36); Mean Corpuscular Hemoglobin 31 pg (26-34); Mean Corpuscular Volume 93 fL (80-100); RDW Coefficient of Variation % 13.0 % (11.5-15.5); Red Blood Count* 4.59 m/uL (4.00-5.20); White Blood Count* 13.71 K/uL (4.50-11.00)
[2025-04-08 02:52] LABS: Immature Granulocytes Abs Auto 0.00 K/uL (0.00-0.30); Lymphocytes Absolute Auto 0.90 K/uL (0.90-2.90); Slide Review Reflex No
[2025-04-08 02:58] LABS: Albumin* 2.9 g/dL (3.3-5.0); Chloride* 106 mmol/L (96-114); Sodium* 139 mmol/L (135-149)
[2025-04-08 02:59] LABS: Potassium* 4.1 mmol/L (3.6-5.1)
[2025-04-08 03:01] LABS: Alanine Aminotransferase* 39 U/L (4-35); Alkaline Phosphatase* 119 U/L (40-150); Anion Gap 18 mEq/L (7-15); Aspartate Amino Transferase* 54 U/L (12-35); Bilirubin Total* 0.8 mg/dL (0.1-1.5); Blood Urea Nitrogen* 45 mg/dL (7-30); Carbon Dioxide* 15 mmol/L (20-32); Creatinine* 0.8 mg/dL (0.5-1.5); Est. Creatinine Clearance* 36.81; Estimated Glomerular Filt Rate 73 ml/min; Total Protein* 6.2 g/dL (6.0-8.3)
[2025-04-08 03:02] LABS: Calcium* 8.1 mg/dL (8.4-10.6); Glucose* 328 mg/dL (60-115)
--- NOTE | 2025-04-08 03:46 | PM.EN ---
Chart Event Note Time Seen by Provider: 03:46 Date Seen: 04/08/25 Chart Event Note: Patient chart reviewed and patient assessed alongside Dr. August. Patient's clinical status has deteriorated quickly; with a rapidly rising lactate, afib RVR/SVT requiring adenosine, and tachypnea. Discussed case with Dr. August. This patient is highly likely to require high level ICU in the near term and especially after surgical intervention. High likelihood patient with need mechanical respiratory support and pressors post surgery, which is not within the scope of care offered at this institution. Decision made to pursue transfer to a facility with higher level of care.
--- NOTE | 2025-04-08 03:51 | PM.EN ---
Chart Event Note Time Seen by Provider: 03:51 Date Seen: 04/08/25 Chart Event Note: I was called to discuss a change in patient's clinical status. Overnight developed worsening abdominal distension, pain and new onset AFib RVR. Was developed to CCU status. Repeat labs were obtained with new onset leukocytosis and uptrending lactic acid (2.8--5.2--5.4). This is despite ongoing fluid resuscitation. I came in to evaluate the patient. Abdominal exam is significant for increased distension, firm, diffuse tenderness to palpation. An abdominal x-ray was obtained which demonstrated increased colonic distension concerning for developing obstruction. Prominent stool burden. No evidence of free air. Given the clinical picture and evidence of deterioration I am concerned about colonic ischemia and risk of perforation associated with pressure from the large amount of stool burden that is present. Patient does need emergency surgical intervention. This was discussed with Anesthesia who evaluated the patient. Patient is a high risk surgical candidate given her current cardiovascular status, frail state, and current anticoagulation (Eliquis with new diagnosis DVT). Due to her medical needs needed intraoperatively and ICU cares postoperatively they do feel the patient is to high risk to proceed to the operating room here at [facility].
--- NOTE | 2025-04-08 05:56 | PC.NURSE ---
Staff Nurse Icu Resource Team took over care for pt at 0300 when she was moved to CCU status. Pt has continued to slowly decompensate. HR= 130-165 BPM, RR increased from 20's to 38, pt reports increased pain 8/10. PRN dilaudid given x3. BP's have remained hypertensive, 140's systolic. Afebrile at this time Dr. August aware of pt status pt and requests transfer attempts. Bed obtained at [facility]'s M/S ICU and report given to SUSANA Casillas. Pt transferred via [facility] to [facility] at 0535. Tommy given information on parking/unit number.
--- NOTE | 2025-04-08 06:50 | PC.NURSE ---
End of shift report: AxOx4.?Around 2100 it was noted that pts HR was in the 130s EKG obtained and it showed SVT, MD Mccain notified and?adenosine?was ordered and given.?Pt complains of constant abdominal pain throughout the abdomen, prn?pain meds given with?little?relief.?Miralax?and enema given, pt had a small amount of liquid stool and 5 pea sized hard stool balls.?Pts HR was noted to be?Afib?RVR via EKG, [facility] [place]?contacted and saw patient on telehealth in the room.?Critical Care Registered Nurse?noted abdomen to have increased distension as well as firmer abdomen compared to earlier in the shift.?Dr. August was contacted and came to bedside to evaluate the patient.?Care?was?transferred to SUSANA Davila when?pt?was CCU?at 0300. Bed alarm on, call light within reach.?
--- NOTE | 2025-04-08 07:00 | CRLHL7_ITS ---
For Patients: As a result of the Century Cures Act, medical imaging exams and procedure reports are released immediately into your electronic medical record. You may view this report before your referring provider. If you have questions, please contact your health care provider. Indication: Abdominal pain. Technique: Abdomen 1 view. Comparison: CT abdomen pelvis 04/07/2020. Findings/Impression: Prominent colonic distention, slightly increased compared to prior CT, concerning for developing obstruction. Prominent stool burden. No radiographic evidence of free intraperitoneal air. Dictated by Mo Spangler MD @ 04/08/2025 2:14:45 AM (Electronically Signed)
== END 2025-04-08 05:30 | disposition short-term general hospital (02) | DRG 393 ==
LOC: ED 15:41 → MEDSURG 16:02
PROVIDERS: Internal Medicine; Admitting Provider Family Medicine; Emergency Provider Emergency Medicine Emergency Medical Services; PCP Family Medicine; Visit Provider Family Medicine
DX: K55.049 Acute infarction of large intestine, extent unspecified (principal); A41.9 Sepsis, unspecified organism; E43 Unspecified severe protein-calorie malnutrition; I82.412 Acute embolism and thrombosis of left femoral vein; N39.0 Urinary tract infection, site not specified; K59.09 Other constipation; K55.1 Chronic vascular disorders of intestine; I48.91 Unspecified atrial fibrillation; E86.0 Dehydration; R33.9 Retention of urine, unspecified; E11.9 Type 2 diabetes mellitus without complications; I10 Essential (primary) hypertension; I25.10 Atherosclerotic heart disease of native coronary artery without angina pectoris; Z68.23 Body mass index [BMI] 23.0-23.9, adult; F32.A Depression, unspecified; E03.9 Hypothyroidism, unspecified; E78.2 Mixed hyperlipidemia; Z96.652 Presence of left artificial knee joint; Z96.651 Presence of right artificial knee joint; Z85.828 Personal history of other malignant neoplasm of skin
CPT/HCPCS: 36415; 51701; 51702; 51798; 74018; 74177; 80048; 80053; 80076; 81001; 81003; 81015; 83605; 83690; 83735; 83880; 84443; 84484; 85025; 86850; 86900; 86901; 87040; 87086; 99284; 99285; A9270; G0378; J0153; J1171; J1650; J2405; J2543; J7030; J7050; J7120; Q9967

== ENCOUNTER 2025-04-08 05:20 | Outpatient (CLI) | payer MEDICARE, BC, SELFPAY | END 2025-04-08 05:21 | disposition home or self-care (01) | LOC: AMB 04-12 11:39 | PROVIDERS: PCP Family Medicine; Visit Provider Family Medicine | DX: K59.00 Constipation, unspecified (principal); R10.9 Unspecified abdominal pain | CPT/HCPCS: A0425; A0434 ==